=== PATIENT | male | born 1945 | race Caucasian/White ===

== ENCOUNTER → 2020-06-10 | Outpatient (CLI) | payer MEDICARE ==
[2020-06-10 10:25] LABS: Basophils % (A) 0 %; Eosinophils # (A) 0.1 k/uL (0-0.7); Eosinophils % (A) 1 %; HCT 45.2 % (39.0-53.0); HGB 14.6 gm/dL (13.0-17.5); Lymphocytes # (A) 1.5 k/uL (1.0-4.8); Lymphocytes % (A) 22 %; MCH 31.6 pg (25.0-35.0); MCHC 32.3 g/dL (31.0-37.0); MCV 97.9 fL (80.0-100.0); Mean Platelet Volume 6.9; Monocytes # (A) 0.7 k/uL (0-1.0); Monocytes % (A) 10 %; Neutrophils # (A) 4.6 k/uL (1.3-7.7); Neutrophils % (A) 64 %; Platelet Count 265 k/uL (150-450); RBC 4.62 m/uL (4.30-5.90); RDW 12.8 % (11.5-15.5); WBC 7.1 k/uL (3.8-10.6)
[2020-06-10 16:41] LABS: African American GFR (CKD) 69.1 (60.0-200.0); Albumin 4.4 g/dL (3.80-4.90); Albumin/Globulin Ratio 1.69 (1.60-3.17); Anion Gap 7.6 mmol/L (4.00-12.00); BUN/Creat Ratio 9.17 Ratio (12.00-20.00); Calcium 9.7 mg/dL (8.7-10.3); Carbon Dioxide 26.4 mmol/L (21.6-31.8); Chol/HDL Ratio 2.06; Globulin 2.6 g/dL (1.6-3.3); Non-African American GFR(CKD) 59.6 (60.0-200.0); Potassium 4.3 mmol/L (3.5-5.5); Total Bilirubin 0.7 mg/dL (0.3-1.2)
== END | disposition home or self-care (01) ==
LOC: LABWHC1 09:12
PROVIDERS: ATTEND Physician Assistant
DX: F41.9 Anxiety disorder, unspecified (principal); E78.2 Mixed hyperlipidemia; I10 Essential (primary) hypertension
CPT/HCPCS: 36415; 80053; 80061; 84439; 84443; 85025

== ENCOUNTER → 2020-06-17 | Outpatient (CLI) | payer MEDICARE ==
--- NOTE | 2020-06-17 12:00 | ECHOF ---
Referral Reason:R01.1 Heart Murmur MEASUREMENTS -------- HEIGHT: 180.3 cm WEIGHT: 88.5 kg BP: IVSd: 1.5 cm (0.6 - 1.1) LVIDd: 3.2 cm (3.9 - 5.3) LVPWd: 1.6 cm (0.6 - 1.1) IVSs: 2.0 cm LVIDs: 1.8 cm LVPWs: 1.7 cm LAESV Index (A-L): 29.59 ml/m Ao Diam: 2.2 cm (2.0 - 3.7) AV Cusp: 1.1 cm (1.5 - 2.6) LA Diam: 4.1 cm (2.7 - 3.8) MV EXCURSION: 12.148 mm (> 18.000) MV EF SLOPE: 48 mm/s (70 - 150) EPSS: 0.7 cm MV E Quentin: 1.25 m/s MV DecT: 150 ms MV A Quentin: 0.75 m/s MV E/A Ratio: 1.66 AV maxP.58 mmHg AV meanP.59 mmHg AR PHT: 215 ms RAP: 5.00 mmHg RVSP: 29.59 mmHg FINDINGS -------- Sinus rhythm. This was a technically good study. The left ventricular size is normal. There is moderate concentric left ventricular hypertrophy. O verall left ventricular systolic function is normal with, an EF between 55 - 60 %. Normal LAP. Grad e 1 Diastolic Dysfunction. The right ventricle is normal in size. LA is midly dilated 29-33ml/m2. The right atrial size is normal. Interatrial and interventricular septum intact. Aortic valve is trileaflet and is severely thickened. Trace amount of aortic regurgitation. Ther e is severe aortic stenosis present. Peak/mean gradient across the Aortic Valve is 72.58mmHg / 39.5 9mmHg. The mitral valve is normal. The mitral valve leaflets are mildly thickened. Mild mitral regurgita tion is present. Mild tricuspid regurgitation present. Right ventricular systolic pressure is normal at < 35 mmHg. There is no pulmonic regurgitation present. The aortic root size is normal. Normal inferior vena cava with normal inspiratory collapse consistent with estimated right atrial pre ssure of 5 mmHg. There is no pericardial effusion. CONCLUSIONS -------- 1. The left ventricular size is normal. 2. There is moderate concentric left ventricular hypertrophy. 3. Overall left ventricular systolic function is normal with, an EF between 55 - 60 %. 4. Normal LAP. Grade 1 Diastolic Dysfunction. 5. LA is midly dilated 29-33ml/m2. 6. Aortic valve is trileaflet and is severely thickened. 7. Trace amount of aortic regurgitation. 8. There is severe aortic stenosis present. 9. Peak/mean gradient across the Aortic Valve is 72.58mmHg / 39.59mmHg. 10. The mitral valve leaflets are mildly thickened. 11. Mild mitral regurgitation is present. 12. Mild tricuspid regurgitation present. RECLAIMER: Corrina Garcia RDCS
== END | disposition home or self-care (01) ==
LOC: RADECHMAIN 11:05
PROVIDERS: ATTEND Family Medicine
DX: I08.1 Rheumatic disorders of both mitral and tricuspid valves (principal)
CPT/HCPCS: 93306

== ENCOUNTER 2023-05-10 10:01 | Inpatient (IN) | payer MEDICARE ==
[2023-05-10] MEDS ORDERED: SODIUM CHLORIDE 0.9% 500 ML 500 ML IV STA (10:14)
--- NOTE | 2023-05-10 10:23 | ED ---
General Adult HPI - General Chief complaint: Weakness Stated complaint: Weakness Time Seen by Provider: 05/10/23 10:10 Source: patient, EMS, RN notes reviewed, old records reviewed Mode of arrival: EMS Limitations: altered mental status - History of Present Illness Initial comments: This is a 78-year-old male who presents emergency Department for generalized weakness. Patient states he continues to fall he states because he gets his feet caught on the sticky floor but according to EMS the wanted him evaluated for weakness and the fact that 4 days ago he had slurred speech and he hasn't had any since. According to EMS there was no concern for difficulty breathing or chest pain there's no complaints vomiting or diarrhea there's no complete abdominal pain patient himself has no complaints at all and he is indicated he only reason EMS was called us because he couldn't get up and he is not sure why he was brought to the hospital. is not yet here to give us her side of the story. Patient has a history of stroke who is not exhibiting any signs of stroke and he denies any weakness or numbness that is focal - Related Data Home Medications Medication Instructions Recorded Confirmed Aspirin EC [Ecotrin] 325 mg PO DAILY 05/10/23 05/10/23 Escitalopram [Lexapro] 20 mg PO HS 05/10/23 05/10/23 Meloxicam [Mobic] 15 mg PO DAILY 05/10/23 05/10/23 Metoprolol Succinate (ER) [Toprol 50 mg PO DAILY 05/10/23 05/10/23 Xl] Omeprazole [PriLOSEC] 40 mg PO DAILY PRN 05/10/23 05/10/23 Rosuvastatin Calcium 5 mg PO HS 05/10/23 05/10/23 Allergies Allergy/AdvReac Type Severity Reaction Status Date / Time Iodinated Contrast Media Allergy KIDNEY Verified 05/10/23 11:06 [Iodinated Contrast Media - FAILURE IV Dye] Review of Systems ROS Statement: Those systems with pertinent positive or pertinent negative responses have been documented in the HPI. ROS Other: All systems not noted in ROS Statement are negative. 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 Recently recovered from shingelles. CVA-2012-LT SIDED ARM WEAKNESS. POLYMYALGIA History of Any Multi-Drug Resistant Organisms: None Reported Past Surgical History: Bowel Resection, Heart Catheterization Additional Past Surgical History / Comment(s): 09/01/16 Robotic assisted laparoscopic lower anterior resection, bilateral ureteral stent placement. Other surgical procedures: EGD, COLONOSCOPY Past Anesthesia/Blood Transfusion Reactions: No Reported Reaction Additional Past Anesthesia/Blood Transfusion Reaction / Comment(s): HAS NEVER HAD GENERAL ANESTHESIA. Past Psychological History: No Psychological Hx Reported Smoking Status: Current every day smoker Past Alcohol Use History: Occasional Past Drug Use History: None Reported - Past Family History Father Family Medical History: Cancer Additional Family Medical History / Comment(s): MELANOMA. Father lived to be 92 yrs old. Mother Family Medical History: No Reported History Additional Family Medical History / Comment(s): Mother was healthy and lived to be 92 yrs.old. General Exam - General Exam Comments Initial Comments: GENERAL: Patient is well-developed and well-nourished. Patient is nontoxic and well- hydrated and is in no acute distress. ENT: Neck is soft and supple. No significant lymphadenopathy is noted. Oropharynx is clear. Moist mucous membranes. Neck has full range of motion without eliciting any pain. EYES: The sclera were anicteric and conjunctiva were pink and moist. Extraocular movements were intact and pupils were equal round and reactive to light. Eyelids were unremarkable. PULMONARY: Unlabored respirations. Good breath sounds bilaterally. No audible rales rhonchi or wheezing was noted. CARDIOVASCULAR: There is a regular rate and rhythm without any murmurs gallops or rubs. ABDOMEN: Soft and nontender with normal bowel sounds. SKIN: Skin is clear with no lesions or rashes and otherwise unremarkable. NEUROLOGIC: Patient is alert and oriented x3. Cranial nerves II through XII are grossly intact. Motor and sensory are also intact. Normal speech, volume and content. Symmetrical smile. NIH is 0 MUSCULOSKELETAL: Normal extremities with adequate strength and full range of motion. No lower extremity swelling or edema. No calf tenderness. LYMPHATICS: No significant lymphadenopathy is noted PSYCHIATRIC: Normal psychiatric evaluation. Limitations: altered mental status Course Vital Signs 05/10/23 10:06 Temperature 97.6 F Pulse Rate 100 Respiratory 18 Rate Blood Pressure 145/109 O2 Sat by Pulse 99 Oximetry Medical Decision Making - Medical Decision Making EKG is interpreted by myself which shows atrial fibrillation at 89 bpm QRS is 98 QT interval 379 QTC is 445. Patient's EKG shows no ST segment elevation or depression Was pt. sent in by a medical professional or institution (, PA, MACHINIST CLASS B, urgent care, hospital, or detention...) When possible be specific @ -No Did you speak to anyone other than the patient for history (EMS, parent, family, police, friend...)? What history was obtained from this source @ - gave quite a bit of a history. Patient himself was stating he was here because he's been tripping a lot lately according to the he is so weak he can barely stand days also been quite altered he often thinks it's the middle the day when it's in the middle the night and even since she's been in the emergency department he has been making comments about people singing outside and wonders why there is singing and she states she is definitely not at his baseline Did you review nursing and triage notes (agree or disagree)? Why? @ -I reviewed and agree with nursing and triage notes Were old charts reviewed (outside hosp., previous admission, EMS record, old EKG, old radiological studies, urgent care reports/EKG's, detention records)? Report findings @ -I reviewed prior charts prior lab work Differential Diagnosis (chest pain, altered mental status, abdominal pain women, abdominal pain men, vaginal bleeding, weakness, fever, dyspnea, syncope, headache, dizziness, GI bleed, back pain, seizure, CVA, palpatations, mental health, musculoskeletal)? @ -Differential Altered Mental Status: Hypoglycemia, DKA, hypercapnia, ETOH, overdose, CO poisoning, trauma, myxedema coma, HTN encephalopathy, infection, encephalitis, psychosis, intercranial hemorrhage, hepatic encephalopathy, meningitis, CVA, this is not meant to be an all-inclusive list EKG interpreted by me (3pts min.). @ -As above X-rays interpreted by me (1pt min.). @ -Chest x-ray shows no acute abnormality CT interpreted by me (1pt min.). @ -CT of the brain shows no acute abnormality U/S interpreted by me (1pt. min.). @ -None done What testing was considered but not performed or refused? (CT, X-rays, U/S, labs)? Why? @ -None What meds were considered but not given or refused? Why? @ -None Did you discuss the management of the patient with other professionals (professionals i.e. , PA, MACHINIST CLASS B, lab, RT, psych nurse, socially responsible investment adviser, exercise science internship, teacher, tax compliance officer, trimming caser)? Give summary @ -I spoke with Dr. Gee agreed that the patient admitted the patient wrote admitting orders Was smoking cessation discussed for >3mins.? @ -No Was critical care preformed (if so, how long)? @ -No Were there social determinants of health that impacted care today? How? (Homelessness, low income, unemployed, alcoholism, drug addiction, transportation, low edu. Level, literacy, decrease access to med. care, halfway, rehab)? @ -No Was there de-escalation of care discussed even if they declined (Discuss DNR or withdrawal of care, Hospice)? DNR status @ -No What co-morbidities impacted this encounter? (DM, HTN, Smoking, COPD, CAD, Cancer, CVA, ARF, Chemo, Hep., AIDS, mental health diagnosis, sleep apnea, morbid obesity)? @ -None Was patient admitted / discharged? Hospital course, mention meds given and route, prescriptions, significant lab abnormalities, going to OR and other pertinent info. @ -Patient continued to be altered in the emergency department and though he had no focal weakness patient was unable to stand and be studied by the bedside. I spoke with [facility] and agreed to admit the patient admitted the p atient wrote admitting orders. Patient was a little low on magnesium psychiatric the patient 2 g of magnesium sulfate. Undiagnosed new problem with uncertain prognosis? @ -No Drug Therapy requiring intensive monitoring for toxicity (Heparin, Nitro, Insulin, Cardizem)? @ -No Were any procedures done? @ -No Diagnosis/symptom? @ -Altered mental status Acute, or Chronic, or Acute on Chronic? @ -Acute Uncomplicated (without systemic symptoms) or Complicated (systemic symptoms)? @ -Complicated Side effects of treatment? @ -No Exacerbation, Progression, or Severe Exacerbation? @ -No Poses a threat to life or bodily function? How? (Chest pain, USA, NM, pneumonia, PE, COPD, DKA, ARF, appy, cholecystitis, CVA, Diverticulitis, Homicidal, Suicidal, threat to staff... and all critical care pts) @ -No Diagnosis/symptom? @ -Hypomagnesemia Acute, or Chronic, or Acute on Chronic? @ -Acute Uncomplicated (without systemic symptoms) or Complicated (systemic symptoms)? @ -Uncomplicated Side effects of treatment? @ -none Exacerbation, Progression, or Severe Exacerbation] @ -no Poses a threat to life or bodily function? @ -no - Lab Data Result diagrams: 05/10/23 10:23 05/10/23 11:00 Lab Results 05/10/23 05/10/23 05/10/23 Range/Units 10:23 10: 10:23 WBC 5.7 (3.8-10.6) k/uL RBC 4.53 (4.30-5.90) m/uL Hgb 15.2 (13.0-17.5) gm/dL Hct 44.0 (39.0-53.0) % MCV 97.0 (80.0-100.0) fL MCH 33.4 (25.0-35.0) pg MCHC 34.5 (31.0-37.0) g/dL RDW 13.6 (11.5-15.5) % Plt Count 203 (150-450) k/uL MPV 8.0 Neutrophils % (Manual) 54 % Band Neuts % (Manual) 1 % Lymphocytes % (Manual) 20 % Monocytes % (Manual) 21 % Eosinophils % (Manual) 3 % Basophils % (Manual) 1 % Metamyelocytes % 1 % Myelocytes % 1 % Neutrophils # (Manual) 3.10 (1.3-7.7) k/uL Lymphocytes # (Manual) 1.14 (1.0-4.8) k/uL Monocytes # (Manual) 1.20 H (0-1.0) k/uL Eosinophils # (Manual) 0.17 (0-0.7) k/uL Basophils # (Manual) 0.06 (0-0.2) k/uL Metamyelocytes # (Man) 0.06 H (0) k/uL Myelocytes # (Manual) 0.06 H (0) k/uL Nucleated RBCs 0 (0-0) /100 WBC Manual Slide Review Performed RBC Morphology Normal PT 12.2 H (9.0-12.0) sec INR 1.2 H (<1.2) APTT 26.5 (22.0-30.0) sec Sodium (137-145) mmol/L Potassium (3.5-5.1) mmol/L Chloride (98-107) mmol/L Carbon Dioxide (22-30) mmol/L Anion Gap mmol/L BUN (9-20) mg/dL Creatinine (0.66-1.25) mg/dL Est GFR (CKD-EPI)AfAm (>60 ml/min/1.73 sqM) Est GFR (CKD-EPI)NonAf (>60 ml/min/1.73 sqM) Glucose (74-99) mg/dL Plasma Lactic Acid Bucky (0.7-2.0) mmol/L Calcium (8.4-10.2) mg/dL Magnesium (1.6-2.3) mg/dL Total Bilirubin (0.2-1.3) mg/dL AST (17-59) U/L ALT (4-49) U/L Alkaline Phosphatase (38-126) U/L Troponin I (0.000-0.034) ng/mL Total Protein (6.3-8.2) g/dL Albumin (3.5-5.0) g/dL Urine Color Yellow Urine Appearance Clear (Clear) Urine pH 6.5 (5.0-8.0) Ur Specific [place] 1.006 (1.001-1.035) Urine Protein Trace H (Negative) Urine Glucose (UA) Negative (Negative) Urine Ketones Negative (Negative) Urine Blood Negative (Negative) Urine Nitrite Negative (Negative) Urine Bilirubin Negative (Negative) Urine Urobilinogen 2.0 (<2.0) mg/dL Ur Leukocyte Esterase Negative (Negative) 05/10/23 05/10/23 05/10/23 Range/Units 11:00 11:00 11:00 WBC (3.8-10.6) k/uL RBC (4.30-5.90) m/uL Hgb (13.0-17.5) gm/dL Hct (39.0-53.0) % MCV (80.0-100.0) fL MCH (25.0-35.0) pg MCHC (31.0-37.0) g/dL RDW (11.5-15.5) % Plt Count (150-450) k/uL MPV Neutrophils % (Manual) % Band Neuts % (Manual) % Lymphocytes % (Manual) % Monocytes % (Manual) % Eosinophils % (Manual) % Basophils % (Manual) % Metamyelocytes % % Myelocytes % % Neutrophils # (Manual) (1.3-7.7) k/uL Lymphocytes # (Manual) (1.0-4.8) k/uL Monocytes # (Manual) (0-1.0) k/uL Eosinophils # (Manual) (0-0.7) k/uL Basophils # (Manual) (0-0.2) k/uL Metamyelocytes # (Man) (0) k/uL Myelocytes # (Manual) (0) k/uL Nucleated RBCs (0-0) /100 WBC Manual Slide Review RBC Morphology PT (9.0-12.0) sec INR (<1.2) APTT (22.0-30.0) sec Sodium 131 L (137-145) mmol/L Potassium 4.0 (3.5-5.1) mmol/L Chloride 99 (98-107) mmol/L Carbon Dioxide 22 (22-30) mmol/L Anion Gap 10 mmol/L BUN 11 (9-20) mg/dL Creatinine 1.02 (0.66-1.25) mg/dL Est GFR (CKD-EPI)AfAm 82 (>60 ml/min/1.73 sqM) Est GFR (CKD-EPI)NonAf 71 (>60 ml/min/1.73 sqM) Glucose 104 H (74-99) mg/dL Plasma Lactic Acid Bucky 1.5 (0.7-2.0) mmol/L Calcium 8.9 (8.4-10.2) mg/dL Magnesium 1.3 L (1.6-2.3) mg/dL Total Bilirubin 1.3 (0.2-1.3) mg/dL AST 31 (17-59) U/L ALT 23 (4-49) U/L Alkaline Phosphatase 169 H (38-126) U/L Troponin I <0.012 (0.000-0.034) ng/mL Total Protein 6.9 (6.3-8.2) g/dL Albumin 3.6 (3.5-5.0) g/dL Urine Color Urine Appearance (Clear) Urine pH (5.0-8.0) Ur Specific [place] (1.001-1.035) Urine Protein (Negative) Urine Glucose (UA) (Negative) Urine Ketones (Negative) Urine Blood (Negative) Urine Nitrite (Negative) Urine Bilirubin (Negative) Urine Urobilinogen (<2.0) mg/dL Ur Leukocyte Esterase (Negative) Disposition Clinical Impression: Hypomagnesemia, Altered mental status Disposition: ADMITTED IP TO THIS HOSP Referrals: Fernie Currie MD [Primary Care Provider] - 1-2 days Time of Disposition: 14:15
[2023-05-10 10:51] LABS: HGB 15.2 gm/dL (13.0-17.5); MCH 33.4 pg (25.0-35.0); MCHC 34.5 g/dL (31.0-37.0); Platelet Count 203 k/uL (150-450); RBC 4.53 m/uL (4.30-5.90); RDW 13.6 % (11.5-15.5); WBC 5.7 k/uL (3.8-10.6)
--- NOTE | 2023-05-10 10:53 | XR ---
EXAMINATION TYPE: XR chest 2V DATE OF EXAM: 05/10/2023 10:47 AM COMPARISON: Chest radiographs from 08/02/2016 TECHNIQUE: XR chest 2V Frontal and lateral views of the chest. CLINICAL INDICATION:Male, 78 years old with history of Weakness; FINDINGS: Lungs/Pleura: Blunting of both costophrenic angles. Elevation the right hemidiaphragm. No focal conso lidation or pneumothorax. Pulmonary vascularity: Unremarkable. Heart/mediastinum: Cardiomediastinal silhouette is unremarkable. Musculoskeletal: Multiple level degenerative disc disease changes seen throughout the spine. No acute osseous abnormality. IMPRESSION: Small bilateral pleural effusions.
--- NOTE | 2023-05-10 10:58 | CT ---
EXAMINATION TYPE: CT brain wo con DATE OF EXAM: 05/10/2023 COMPARISON: 09/23/2012 HISTORY: weakness, frequent falls CT DLP: 1129.4 mGycm Automated exposure control for dose reduction was used. FINDINGS: On changes of chronic sinusitis. Nasal septal deviation noted. Calvarium intact. Orbits are symmetric . Craniocervical junction maintained. Sella turcica is normal. There is moderate generalized degenerative change with subtle low attenuation in the white matter whi ch is nonspecific but most typical remote white matter ischemia. IMPRESSION: 1. NO ACUTE HEMORRHAGE OR MASS EFFECT. MODERATE GENERALIZED DEGENERATIVE AND NONSPECIFIC WHITE MATTER CHANGES MOST TYPICAL OF REMOTE WHITE MATTER MICROVASCULAR ISCHEMIA.
[2023-05-10 11:09] LABS: INR 1.2 (<1.2); Partial Thromboplastin Time 26.5 sec (22.0-30.0); Prothrombin Time 12.2 sec (9.0-12.0)
[2023-05-10 11:36] LABS: ALT 23 U/L (4-49); AST 31 U/L (17-59); African American GFR (CKD) 82 (>60 ml/min/1.73 sqM); Albumin 3.6 g/dL (3.5-5.0); Alkaline Phosphatase 169 U/L (38-126); Anion Gap 10 mmol/L; Blood Urea Nitrogen 11 mg/dL (9-20); Calcium 8.9 mg/dL (8.4-10.2); Carbon Dioxide 22 mmol/L (22-30); Chloride 99 mmol/L (98-107); Glucose 104 mg/dL (74-99); Magnesium 1.3 mg/dL (1.6-2.3); Non-African American GFR(CKD) 71 (>60 ml/min/1.73 sqM); Sodium 131 mmol/L (137-145); Total Bilirubin 1.3 mg/dL (0.2-1.3); Total Protein 6.9 g/dL (6.3-8.2)
[2023-05-10 11:44] LABS: Band Neutrophils % 1 %; Basophils # (M) 0.06 k/uL (0-0.2); Eosinophils # (M) 0.17 k/uL (0-0.7); Lymphocytes # (M) 1.14 k/uL (1.0-4.8); Metamyelocytes # (M) 0.06 k/uL (0); Metamyelocytes % 1 %; Myelocytes # (M) 0.06 k/uL (0); Myelocytes % 1 %; Neutrophils % (M) 54 %; Nucleated Red Blood Cells 0 /100 WBC (0-0); Total Cells Counted 200
[2023-05-10 11:46] LABS: RBC Morphology Normal
[2023-05-10 13:09] LABS: Appearance,Urine Clear (Clear); Bilirubin,Urine Negative (Negative); Blood,Urine Negative (Negative); Color,Urine Yellow; Glucose,Urine (UA) Negative (Negative); Ketones,Urine Negative (Negative); Leukocyte Esterase,Urine Negative (Negative); Nitrite,Urine Negative (Negative); PH, Urine 6.5 (5.0-8.0); Protein,Urine Trace (Negative); Specific Gravity,Urine 1.006 (1.001-1.035)
[2023-05-10] MEDS: MAGNESIUM SULFATE-D5W PMX 1 GM in DEXTROSE/WATER 1 100ML.BAG IVPB SCH ×2 (13:49→14:52)
[2023-05-10] MEDS ORDERED: SODIUM CHLORIDE 0.9% 1,000 ML IV ONE (14:16)
[2023-05-10] MEDS ORDERED: PANTOPRAZOLE 40 MG TABLET PO PRN (16:47)
--- NOTE | 2023-05-10 17:25 | P.HPIM ---
History of Present Illness H&P Date: 05/10/23 Patient is a 78-year-old male with PMH of CVA and 2013, atrial fibrillation not on anticoagulation, GERD, hypertension, severe aortic stenosis presents to the ED for generalized weakness. Patient is pleasantly confused majority of the history is obtained from his . His reports that the patient has been more forgetful, repeating himself, disorientation and losing his balance frequently which is progressively been getting worse over the past 2 weeks. Over the past 3 days, he has been in bed and unable to stand up. He is also sleeping more. reports taking him off Eliquis recently for the fear of falling. She denies any slurred speech, difficulty swallowing, unilateral weakness. These constellation of symptoms prompted her to call EMS. In the ED, BP was 145/109 with heart rate of 100. CBC was benign. Coagulation panel showed INR 1.2. CMP showed sodium of 131, glucose 104, magnesium of 1.3 and alkaline phosphatase 169. Troponins less than 0.012. Urinalysis showed trace protein. CT head showed small vessel ischemic changes. EKG showed atrial fibrillation. Chest x-ray showed small bilateral pleural effusions. Pertinent positives and negatives as discussed in HPI, a complete review of systems was performed and all other systems are negative. General: non toxic, no distress, appears at stated age Derm: warm, dry Head: atraumatic, normocephalic, symmetric Eyes: EOMI, no lid lag, anicteric sclera Cardiovascular: Irregularly regular, no murmur Lungs: CTA bilateral, no rhonchi, no rales , no accessory muscle use Abdominal: soft, nontender to palpation, no guarding, no appreciable organomegaly Ext: no gross muscle atrophy, no edema, no contractures, LLE bruising Neuro: CN II-XI grossly intact, no focal neuro deficits Psych: Alert and oriented x 1 Altered mental status Generalized weakness Hypomagnesemia Hyponatremia Chronic conditions: CVA and 2013, atrial fibrillation not on anticoagulation, GERD, hypertension, severe aortic stenosis Based on my assessment of this patient, this patient meets a high complexity level of care. Patient has an acute diagnosis of altered mental status that poses a threat to life or bodily function. 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 He is unable to do his ADLs and IADLs. He is AO x 1. Unable to tell me who the president is or what year it is. Prior to this, he was fully functioning. Given that he is off anticoagulation, concern is for CVA. Stroke workup will be pursued. Obtain CT head and neck. Obtain MRI brain. Obtain echocardiogram. Telemetry monitoring and advanced neurochecks. PT, OT and ST consulted. Hemoglobin A1c and lipid panel ordered. Reversible labs including TSH, folate acid, vitamin B12 and ammonia ordered. I have reviewed the following strategy planning consultant notes: I have reviewed the results of the following tests: CBC, CMP, coagulation panel, troponin, urinalysis, CT head, chest x-ray. I have ordered the following tests: CTA head and neck, echocardiogram, MRI brain, hemoglobin A1c, lipid panel, TSH, ammonia, fully casted, vitamin B12. I have discussed the care of this patient with the following independent historian: Case was discussed extensively with the over the phone. I have independently interpreted the following test below: EKG is interpreted as above. I have discussed the management of this patient with the following physician: Case was discussed extensively with the ED physician. 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 Recently recovered from shingelles. 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 POLYMYALGIA History of Any Multi-Drug Resistant Organisms: None Reported Past Surgical History: Bowel Resection, Heart Catheterization Additional Past Surgical History / Comment(s): 09/01/16 Robotic assisted laparoscopic lower anterior resection, bilateral ureteral stent placement. Other surgical procedures: EGD, COLONOSCOPY Past Anesthesia/Blood Transfusion Reactions: No Reported Reaction Additional Past Anesthesia/Blood Transfusion Reaction / Comment(s): HAS NEVER HAD GENERAL ANESTHESIA. Past Psychological History: No Psychological Hx Reported Smoking Status: Current every day smoker Past Alcohol Use History: Occasional Past Drug Use History: None Reported - Past Family History Father Family Medical History: Cancer Additional Family Medical History / Comment(s): MELANOMA. Father lived to be 92 yrs old. Mother Family Medical History: No Reported History Additional Family Medical History / Comment(s): Mother was healthy and lived to be 92 yrs.old. Medications and Allergies Home Medications Medication Instructions Recorded Confirmed Type Aspirin EC [Ecotrin] 325 mg PO DAILY 05/10/23 05/10/23 History Escitalopram [Lexapro] 20 mg PO HS 05/10/23 05/10/23 History Meloxicam [Mobic] 15 mg PO DAILY 05/10/23 05/10/23 History Metoprolol Succinate (ER) [Toprol 50 mg PO DAILY 05/10/23 05/10/23 History Xl] Omeprazole [PriLOSEC] 40 mg PO DAILY PRN 05/10/23 05/10/23 History Rosuvastatin Calcium 5 mg PO HS 05/10/23 05/10/23 History Allergies Allergy/AdvReac Type Severity Reaction Status Date / Time Iodinated Contrast Media Allergy KIDNEY Verified 05/10/23 11:06 [Iodinated Contrast Media - FAILURE IV Dye] Physical Exam Vitals: Vital Signs Temp Pulse Resp BP Pulse Ox 05/10/23 10:06 97.6 F 100 18 145/109 99 Intake and Output 05/10/23 05/10/23 05/10/23 06:59 14:59 22:59 Other: Weight 86.183 kg Results CBC & Chem 7: 05/10/23 10:23 05/10/23 11:00 Labs: Abnormal Lab Results - Last 24 Hours (Table) 05/10/23 05/10/23 05/10/23 Range/Units 10:23 10:23 10:23 Monocytes # (Manual) 1.20 H (0-1.0) k/uL Metamyelocytes # (Man) 0.06 H (0) k/uL Myelocytes # (Manual) 0.06 H (0) k/uL PT 12.2 H (9.0-12.0) sec INR 1.2 H (<1.2) Sodium (137-145) mmol/L Glucose (74-99) mg/dL Magnesium (1.6-2.3) mg/dL Alkaline Phosphatase (38-126) U/L Urine Protein Trace H (Negative) 05/10/23 Range/Units 11:00 Monocytes # (Manual) (0-1.0) k/uL Metamyelocytes # (Man) (0) k/uL Myelocytes # (Manual) (0) k/uL PT (9.0-12.0) sec INR (<1.2) Sodium 131 L (137-145) mmol/L Glucose 104 H (74-99) mg/dL Magnesium 1.3 L (1.6-2.3) mg/dL Alkaline Phosphatase 169 H (38-126) U/L Urine Protein (Negative)
--- NOTE | 2023-05-10 19:13 | US ---
EXAMINATION TYPE: US carotid duplex BILAT DATE OF EXAM: 05/10/2023 COMPARISON: NONE CLINICAL INDICATION: Male, 78 years old with history of CVA; CVA. Altered mental status TECHNIQUE: Carotid duplex ultrasound examination. Indirect Doppler criteria was utilized. FINDINGS: EXAM MEASUREMENTS: RIGHT: Peak Systolic Velocity (PSV) cm/sec ----- Right CCA: 21.7 ----- Right ICA: 73.6 ----- Right ECA: 46.5 ICA/CCA ratio: 3.4 RIGHT: End Diastole cm/sec ----- Right CCA: 5.1 ----- Right ICA: 21.9 ----- Right ECA: 0.0 LEFT: Peak Systolic Velocity (PSV) cm/sec ----- Left CCA: 41.2 ----- Left ICA: 44.3 ----- Left ECA: 50.8 ICA/CCA ratio: 1.1 LEFT: End Diastole cm/sec ----- Left CCA: 24.8 ----- Left ICA: 17.5 ----- Left ECA: 8.5 VERTEBRALS (direction of flow): Right Vertebral: Antegrade Left Vertebral: Not seen Rhythm: Arrhythmia ASSEMBLER TRIM NOTES: Moderate amount of plaque seen in right bulb and right ICA. There appears to be st enosis in the right ICA IMPRESSION: 1. Approximately 50-69% stenosis involving the right internal carotid artery secondary to hard and so ft atherosclerotic plaquing. 2. Non-visualization of the left vertebral artery. 3. No hemodynamically significant stenosis in the left carotid arterial system. Criteria for Assigning % of Stenosis / Diameter reduction (Estimation based on the indirect measurements of the internal carotid artery velocities (ICA PSV). 1. Normal (no stenosis)=ICA PSV < 125 cm/s: ratio < 2.0: ICA EDV<40 cm/s. 2. Less than 50% stenosis=ICA PSV < 125 cm/s: ratio < 2.0: ICA EDV<40 cm/s. 3. 50 to 69% stenosis=ICA PSV of 125 to 230 cm/s: ration 2.0 ? 4.0: ICA EDV 40-100 cm/s. 4. Greater than 70% stenosis to near occlusion= ICA PSV > 230 cm/s: ratio > 4.0: ICA EDV > 100 cm/s. 5. Near occlusion= ICA PSV velocities may be low or undetectable: variable ratio and ICA EDV. 6. Total occlusion=unable to detect flow.
[2023-05-10 19:18] LABS: Glucose,Whole Blood 128 mg/dL (70-110)
[2023-05-10] MEDS ORDERED: ATORVASTATIN 10 MG TAB PO SCH (21:00)
[2023-05-10] MEDS: ESCITALOPRAM 20 MG TAB PO SCH (22:13)
[2023-05-11] MEDS ORDERED: LORazepam 2 MG/ML INJ IV STA (00:22)
[2023-05-11] MEDS ORDERED: LORazepam 2 MG/ML INJ IV PRN ×3 (00:24)
[2023-05-11] MEDS ORDERED: THIAMINE 100 MG/ML 2 ML VIAL IM STA (00:24)
[2023-05-11 06:12] LABS: Glucose,Whole Blood 99 mg/dL (70-110)
[2023-05-11] MEDS ORDERED: ENOXAPARIN 40 MG/0.4 ML SYRINGE SQ SCH (09:00)
[2023-05-11] MEDS: FOLIC ACID 1 MG TAB PO SCH (09:11)
[2023-05-11] MEDS: ASPIRIN 325 MG TAB PO SCH (09:11)
[2023-05-11] MEDS: METOPROLOL SUCCINATE (ER) 50 MG TAB.ER.24H PO SCH (09:11)
[2023-05-11] MEDS: MULTIVITAMINS, THERA 1 EACH TAB PO SCH (09:11)
--- NOTE | 2023-05-11 11:04 | CA ---
Transthoracic Echo Report Name: Juvenal Harmon Age: 78 Gender: M : 1945 Exam Date: 05/11/2023 08:16 Exam Location: [facility] Ht (in): 72 Wt (lb): 190 Ordering Physician: Carloz Gee MD Attending/Referring Phys: Nursing Program Coordinator Judd Toscano Procedure CPT: Indications: Thrombus Cardiac Hx: Technical Quality: Technically difficult study Contrast 1: Total Dose (mL): Contrast 2: Total Dose (mL): MEASUREMENTS (Male / Female) Normal Values 2D ECHO LV Diastolic Diameter PLAX 4.1 cm 4.2 - 5.9 / 3.9 - 5.3 cm LV Systolic Diameter PLAX 2.9 cm IVS Diastolic Thickness 1.4 cm 0.6 - 1.0 / 0.6 - 0.9 cm LVPW Diastolic Thickness 1.2 cm 0.6 - 1.0 / 0.6 - 0.9 cm LV Relative Wall Thickness 0.6 RV Internal Dim ED PLAX 2.8 cm LVOT Diameter 2.0 cm Aortic Root Diameter 2.5 cm LA Systolic Diameter LX 4.1 cm 3.0 - 4.0 / 2.7 - 3.8 cm LV Diastolic Volume MOD BP 33.2 cm??? 67 - 155 / 56 - 104 cm??? LV Systolic Volume MOD BP 16.1 cm??? 22 - 58 / 19 - 49 cm??? LV Ejection Fraction MOD BP 51.6 % >= 55 % LV Diastolic Volume MOD 4C 36.3 cm??? LV Systolic Volume MOD 4C 17.3 cm??? LV Ejection Fraction MOD 4C 52.4 % LV Diastolic Length 4C 6.3 cm LV Systolic Length 4C 6.2 cm LV Diastolic Volume MOD 2C 30.4 cm??? LV Systolic Volume MOD 2C 14.5 cm??? LV Ejection Fraction MOD 2C 52.2 % LV Diastolic Length 2C 6.3 cm LV Systolic Length 2C 6.0 cm LA Volume 85.9 cm??? 18 - 58 / 22 - 52 cm??? DOPPLER AV Peak Velocity 419.6 cm/s AV Peak Gradient 70.4 mmHg AV Mean Velocity 316.0 cm/s AV Mean Gradient 45.0 mmHg AV Velocity Time Integral 94.6 cm LVOT Peak Velocity 68.0 cm/s LVOT Peak Gradient 1.8 mmHg LVOT Velocity Time Integral 14.6 cm LVOT Stroke Volume 47.8 cm??? LVOT Stroke Volume Index 23.0 ml/m??? AV Area Cont Eq vti 0.5 cm??? AV Area Cont Eq pk 0.5 cm??? MV Peak Velocity 104.7 cm/s MV Peak Gradient 4.4 mmHg MV Mean Velocity 48.6 cm/s MV Mean Gradient 1.2 mmHg MV Velocity Time Integral 26.0 cm MR Peak Velocity 426.7 cm/s MR Peak Gradient 72.8 mmHg Mitral E Point Velocity 99.4 cm/s Mitral A Point Velocity 30.0 cm/s Mitral E to A Ratio 3.3 MV Deceleration Time 179.4 ms MV E' Velocity 4.4 cm/s Mitral E to MV E' Ratio 22.4 TR Peak Velocity 323.3 cm/s TR Peak Gradient 41.8 mmHg Right Ventricular Systolic Press 52.0 mmHg PV Peak Velocity 82.1 cm/s PV Peak Gradient 2.7 mmHg FINDINGS Left Ventricle Moderately increased septal wall thickness. Mildly decreased left ventricular ejection fraction. Concentric LVH. Left ventricular ejection fraction is estimated at 30-35 %. Right Ventricle Normal right ventricular size. RVSP= 60mmhg Right Atrium Mild right atrial dilatation. Left Atrium Mildly increased left atrial diameter. Severely increased left atrial volume. Mildly increased left atrial area. Mitral Valve Moderate posterior MAC. Mild MR. Aortic Valve Aortic valve not well visualized. Severe aortic stenosis with a peak velocity of m/s, peak gradient 71mmhg, mean gradient 47mmHg, and estimated aortic valve area of 0.6cm???. Tricuspid Valve Structurally normal tricuspid valve. Moderate TR. Pulmonic Valve Pulmonic valve not well visualized. Trace PI. Pericardium Normal pericardium. Aorta Normal size aortic root and proximal ascending aorta. CONCLUSIONS Difficult patient management. LVH with reduced LV systolic function Severe aortic stenosis, calcific Dilated left atrium Previewed by: Dr. Robin Quiroga MD (Electronically Signed) Final Date: 11 May 2023 11:03
--- NOTE | 2023-05-11 11:28 | P.GSCN ---
History of Present Illness Consult date: 05/11/23 Reason for Consult: Right-sided carotid stenosis per carotid duplex Requesting physician: Fabiano Zhu History of present illness: This is a 78-year-old male who was brought in by EMS yesterday with concerns of altered mental status changes, confusion, and generalized weakness. Patient is currently sleeping, and does not provide any history however patient's is at the bedside to provide most of the history. States that he has a past medical history of coronary artery disease, atrial fibrillation and currently on anticoagulation, cardiac valve disease, CVA with residual left-sided weakness in 2012,, GERD, colon cancer, and hypertension. She states he was diagnosed with atrial fibrillation about one year ago and was placed on anticoagulation not that long ago but stopped it after being on it for a couple weeks due to multiple falls and bruising. She also states that he has a bad heart valve that was recommended first surgical intervention by his ocean export coordinator Dr. Guzman. She states that he has been hallucinating and stating that he is seeing things and hearing voices and people singing that are not there. Also has become just generally weak of bilateral upper and lower extremities, having some difficulty with walking, decreased appetite along with some weight loss. She states the only new medications for for his heart she believes his anticoagulation and metoprolol. Again she had stopped the anticoagulation about 2 weeks ago. Neurology was consulted for altered mental status changes, and generalized weakness. He had a CT of the brain reporting no acute hemorrhage or mass effect. Moderate generalized degenerative and nonspecific white matter changes most typical of remote white matter microvascular ischemia. He also underwent a carotid duplex reporting 50-69% stenosis involving the right internal carotid artery secondary to hard and soft arthrosclerotic plaquing. Nonvisualization the left vertebral artery and no hemodynamically significant stenosis of the left carotid artery system. Vascular surgery was consulted for right ICA stenosis. Review of Systems ROS unobtainable: due to mental status Past Medical History Past Medical History: CVA/TIA, GERD/Reflux, Hypertension Additional Past Medical History / Comment(s): 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 shingles. CVA-2012-LT SIDED ARM WEAKNESS. POLYMYALGIA History of Any Multi-Drug Resistant Organisms: None Reported Past Surgical History: Bowel Resection, Heart Catheterization Additional Past Surgical History / Comment(s): 09/01/16 Robotic assisted laparoscopic lower anterior resection, bilateral ureteral stent placement. Other surgical procedures: EGD, COLONOSCOPY Past Anesthesia/Blood Transfusion Reactions: No Reported Reaction Additional Past Anesthesia/Blood Transfusion Reaction / Comm: HAS NEVER HAD GENERAL ANESTHESIA. Past Psychological History: No Psychological Hx Reported Additional Psychological History / Comment(s): Pt resides with his spouse. He is independent. He drives. Smoking Status: Never smoker Past Alcohol Use History: Occasional Past Drug Use History: None Reported - Past Family History Father Family Medical History: Cancer Additional Family Medical History / Comment(s): MELANOMA. Father lived to be 92 yrs old. Mother Family Medical History: No Reported History Additional Family Medical History / Comment(s): Mother was healthy and lived to be 92 yrs.old. Medications and Allergies Home Medications Medication Instructions Recorded Confirmed Type Aspirin EC [Ecotrin] 325 mg PO DAILY 05/10/23 05/10/23 History Escitalopram [Lexapro] 20 mg PO HS 05/10/23 05/10/23 History Meloxicam [Mobic] 15 mg PO DAILY 05/10/23 05/10/23 History Metoprolol Succinate (ER) [Toprol 50 mg PO DAILY 05/10/23 05/10/23 History Xl] Omeprazole [PriLOSEC] 40 mg PO DAILY PRN 05/10/23 05/10/23 History Rosuvastatin Calcium 5 mg PO HS 05/10/23 05/10/23 History Allergies Allergy/AdvReac Type Severity Reaction Status Date / Time Iodinated Contrast Media Allergy KIDNEY Verified 05/10/23 11:06 [Iodinated Contrast Media - FAILURE IV Dye] Surgical - Exam Vital Signs Temp Pulse Resp BP Pulse Ox 97.6 F 100 18 145/109 99 05/10/23 10:06 05/10/23 10:06 05/10/23 10:06 05/10/23 10:05/10/23 10:06 General appearance: The patient is alert, oriented to self, appears in no acute distress. HET: Head is normocephalic and atraumatic. Pupils are equal and reactive. Neck: Supple. No audible carotid bruit. Heart: Irregular with murmur. Lungs: Equal expansion, normal respiratory effort. Abdomen: Soft, nontender, nondistended. Extremities: Normal skin color and turgor. Neurological: Patient alert, sleeping but easily arousable, alert to self. He is able to follow commands. Speech fluent, has facial symmetry and tongue protrudes midline. Good tone bilateral upper and lower extremities, with some generalized weakness bilateral upper and lower extremities. Results - Labs 05/10/23 10:23 05/10/23 11:00 Abnormal Lab Results - Last 24 Hours (Table) 05/10/23 05/10/23 05/10/23 Range/Units 10:23 10:23 10:23 Monocytes # (Manual) 1.20 H (0-1.0) k/uL Metamyelocytes # (Man) 0.06 H (0) k/uL Myelocytes # (Manual) 0.06 H (0) k/uL PT 12.2 H (9.0-12.0) sec INR 1.2 H (<1.2) Sodium (137-145) mmol/L Glucose (74-99) mg/dL POC Glucose (mg/dL) (70-110) mg/dL Magnesium (1.6-2.3) mg/dL Alkaline Phosphatase (38-126) U/L Urine Protein Trace H (Negative) 05/10/23 05/10/23 Range/Units 11:00 19:17 Monocytes # (Manual) (0-1.0) k/uL Metamyelocytes # (Man) (0) k/uL Myelocytes # (Manual) (0) k/uL PT (9.0-12.0) sec INR (<1.2) Sodium 131 L (137-145) mmol/L Glucose 104 H (74-99) mg/dL POC Glucose (mg/dL) 128 H (70-110) mg/dL Magnesium 1.3 L (1.6-2.3) mg/dL Alkaline Phosphatase 169 H (38-126) U/L Urine Protein (Negative) Diabetes panel 05/10/23 05/11/23 Range/Units 11:00 06:32 Sodium 131 L (137-145) mmol/L Potassium 4.0 (3.5-5.1) mmol/L Chloride 99 (98-107) mmol/L Carbon Dioxide 22 (22-30) mmol/L BUN 11 (9-20) mg/dL Creatinine 1.02 (0.66-1.25) mg/dL Glucose 104 H (74-99) mg/dL Hemoglobin A1c 5.8 (<=6.0) % Calcium 8.9 (8.4-10.2) mg/dL AST 31 (17-59) U/L ALT 23 (4-49) U/L Alkaline Phosphatase 169 H (38-126) U/L Total Protein 6.9 (6.3-8.2) g/dL Albumin 3.6 (3.5-5.0) g/dL Thyroid panel 05/11/23 Range/Units 06:32 TSH 1.310 (0.465-4.680) mIU/L Calcium panel 05/10/23 Range/Units 11:00 Calcium 8.9 (8.4-10.2) mg/dL Albumin 3.6 (3.5-5.0) g/dL Pituitary panel 05/10/23 05/11/23 Range/Units 11:00 06:32 Sodium 131 L (137-145) mmol/L Potassium 4.0 (3.5-5.1) mmol/L Chloride 99 (98-107) mmol/L Carbon Dioxide 22 (22-30) mmol/L BUN 11 (9-20) mg/dL Creatinine 1.02 (0.66-1.25) mg/dL Glucose 104 H (74-99) mg/dL Calcium 8.9 (8.4-10.2) mg/dL TSH 1.310 (0.465-4.680) mIU/L Adrenal panel 05/10/23 Range/Units 11:00 Sodium 131 L (137-145) mmol/L Potassium 4.0 (3.5-5.1) mmol/L Chloride 99 (98-107) mmol/L Carbon Dioxide 22 (22-30) mmol/L BUN 11 (9-20) mg/dL Creatinine 1.02 (0.66-1.25) mg/dL Glucose 104 H (74-99) mg/dL Calcium 8.9 (8.4-10.2) mg/dL Total Bilirubin 1.3 (0.2-1.3) mg/dL AST 31 (17-59) U/L ALT 23 (4-49) U/L Alkaline Phosphatase 169 H (38-126) U/L Total Protein 6.9 (6.3-8.2) g/dL Albumin 3.6 (3.5-5.0) g/dL - Imaging Comments: Echocardiogram Difficult patient management LVH with reduced LV systolic function. Severe aortic stenosis, calcific. Dilated left atrium Assessment and Plan Assessment: 1. Altered mental status changes 2. Asymptomatic right-sided carotid stenosis 50-69% per carotid duplex report 3. Generalized weakness 4. History of atrial fibrillation 5. History of coronary artery disease, valve disease, EF 30-35% 6. Previous CVA with some residual left-sided weakness 7. Severe aortic stenosis Plan: 1. Continue symptomatic and supportive care 2. MRA neck and MRI brain ordered, currently pending 3. Continue further neurological workup and recommendations 4. Await MRA neck results, likely this can be followed outpatient Thank you for this consultation further recommendations forthcoming based on clinical course The impression and plan of care has been dictated as directed. Dr. Tipton I performed a history and examination of this patient, discussed the same with the dictator. I agree with the dictator's note ,documented as a scribe. Any additional findings or plans will be noted.
[2023-05-11 11:44] LABS: Glucose,Whole Blood 125 mg/dL (70-110)
--- NOTE | 2023-05-11 12:00 | P.CNNES ---
History of Present Illness Consult date: 05/11/23 Requesting physician: Carloz Gee Reason for Consult: AMS History of Present Illness: This is a 78-year-old gentleman with history of stroke in 2013, atrial fibrillation, hypertension, severe aortic stenosis who presented emergency department because of generalized weakness. History is obtained from medical record that. Per the primary team is seems the notified that patient is becoming more forgetful, repeating himself losing his balance which progressively getting worse over the past 2 weeks. And is seems over the past 3 days prior to procedure the hospital he's unable stand up and he's been sleeping more. His took him off of eliquis since concern of fall. I spoke with the patient's and she stated his symptoms has been going for for past almost 3 weeks and progressively worsening. She stated he was started on anticoagulation about 4 weeks ago but because of his falls she stopped it about 3 weeks ago and notified his well treatment offsider. He is on ASA at home. No history of seizure. He has stroke in 2016 with left hemiparesis (most lower). No recent fever. Some of the workup during his hospital visit consisted of: Sodium was 131, serum glucose is 104, calcium is 8.9. Ammonia is less than 9. TSH is 1.310. CT of the brain is reported as no acute hemorrhage or mass effect. Moderate generalized degenerative and nonspecific white matter changes most typical of remote white matter and microvascular ischemia. I personally reviewed the CT and there is no acute or subacute ischemia. There is no intraparenchymal hemorrhage. Duplex was reported as approximate 50-69% stenosis involving the right internal carotid artery secondary due to hard soft office carotid plaquing. Nonvi sualization of the left vertebral artery. No hemodynamic significant stenosis in the left carotid arterial system. Review of Systems Review of system: The 12 point system was reviewed and apparent positive and negative per HPI. Past Medical History Past Medical History: CVA/TIA, GERD/Reflux, Hypertension Additional Past Medical History / Comment(s): Colon cancer-SIGMOID TUMOR FOUND D URING COLONOSCOPY. shingles. CVA-2012-LT SIDED ARM WEAKNESS. POLYMYALGIA History of Any Multi-Drug Resistant Organisms: None Reported Past Surgical History: Bowel Resection, Heart Catheterization Additional Past Surgical History / Comment(s): 09/01/16 Robotic assisted laparoscopic lower anterior resection, bilateral ureteral stent placement. Other surgical procedures: EGD, COLONOSCOPY Past Anesthesia/Blood Transfusion Reactions: No Reported Reaction Additional Past Anesthesia/Blood Transfusion Reaction / Comment(s): HAS NEVER HAD GENERAL ANESTHESIA. Past Psychological History: No Psychological Hx Reported Additional Psychological History / Comment(s): Pt resides with his spouse. He is independent. He drives. Smoking Status: Never smoker Past Alcohol Use History: Occasional Past Drug Use History: None Reported - Past Family History Father Family Medical History: Cancer Additional Family Medical History / Comment(s): MELANOMA. Father lived to be 92 yrs old. Mother Family Medical History: No Reported History Additional Family Medical History / Comment(s): Mother was healthy and lived to be 92 yrs.old. Medications and Allergies Home Medications Medication Instructions Recorded Confirmed Type Aspirin EC [Ecotrin] 325 mg PO DAILY 05/10/23 05/10/23 History Escitalopram [Lexapro] 20 mg PO HS 05/10/23 05/10/23 History Meloxicam [Mobic] 15 mg PO DAILY 05/10/23 05/10/23 History Metoprolol Succinate (ER) [Toprol 50 mg PO DAILY 05/10/23 05/10/23 History Xl] Omeprazole [PriLOSEC] 40 mg PO DAILY PRN 05/10/23 05/10/23 History Rosuvastatin Calcium 5 mg PO HS 05/10/23 05/10/23 History Allergies Allergy/AdvReac Type Severity Reaction Status Date / Time Iodinated Contrast Media Allergy KIDNEY Verified 05/10/23 11:06 [Iodinated Contrast Media - FAILURE IV Dye] Physical Examination - Vital Signs Vital Signs: Vital Signs Temp Pulse Pulse Resp BP BP Pulse Ox 05/11/23 08:00 98.4 F 83 18 163/96 97 05/11/23 04:30 98 18 170/99 96 05/11/23 00:00 109 H 18 160/95 96 05/10/23 22:29 95 18 176/96 97 05/10/23 20:00 74 18 158/97 05/10/23 19:00 97.8 F 93 18 168/137 97 05/10/23 10:06 97.6 F 100 18 145/109 99 Intake and Output 05/10/23 05/11/23 05/11/23 22:59 06:59 14:59 Output Total 200 Balance -200 Output: Urine 200 Other: Voiding Method Toilet # Voids 1 Weight 86.183 kg GENERAL: The patient is lying in bed and is not in acute distress. NEUROLOGICAL: Higher mental function: The patient is very drowsy but is awakeable to voice. Is oriented to self and time. Not place. He is following simple commands. Language is limited but does not appear he is aphasic. No neglect. Cranial nerves: The pupils are round, equal and reactive to light. Visual key is hard to assess. I felt mild right lower facial weakness that is questionable but felt it seems symetrically and is baseline. No dysarhria. Has hypophonia. Motor: The strength is left forearm extension is 4+ to 5-. Left lower si 4-4+ (old for both). Otherwise 5/5. Normal tone and bulk. Cerebellum: Normal finger to nose bilaterally. Sensation: Sensation is normal to touch throughout. Reflexes (right/left):2+ throughout. Plantars are mute bilaterally. Results - Laboratory Findings CBC and BMP: 05/10/23 10:23 05/10/23 11:00 Abnormal Lab Findings: Abnormal Labs 05/10/23 05/10/23 05/10/23 10:23 10:23 10:23 Monocytes # (Manual) 1.20 H Metamyelocytes # (Man) 0.06 H Myelocytes # (Manual) 0.06 H PT 12.2 H INR 1.2 H Sodium Glucose POC Glucose (mg/dL) Magnesium Alkaline Phosphatase Urine Protein Trace H 05/10/23 05/10/23 11:00 19:17 Monocytes # (Manual) Metamyelocytes # (Man) Myelocytes # (Manual) PT INR Sodium 131 L Glucose 104 H POC Glucose (mg/dL) 128 H Magnesium 1.3 L Alkaline Phosphatase 169 H Urine Protein Assessment and Plan Assessment: Generalized weakness, unsteady gait, memory loss, falls over the past 3 weeks: Uknown cause. Rule out stroke. History of stroke with residual left lower hemiparesis Right ICA stenosis of 50-69% on carotid duplex. History of atrial fibrillation but anticoauglation was stopped about 3 weeks ago by because of recurrent falls. Plan: MR the brain, 2-D echo, TSH, vitamin B12, folate, hemoglobin A1c, lipid panel are ordered by the primary team. I ordered a routine EEG to rule out any seizure or discharges, MRA of the neck for ?right ICA stenosis seen on carotid duplex. I ordered CK level. I reviewed the CT of the head and I felt possibly the lateral ventricle third ventricle seems ?more dilated than atrophy but did not suspect the fourth ventricle was dilated. Unsure if the patient has a component of normal pressure hydrocephalus but seems the unusual for the drastic symptoms in the last 3 weeks if it's mph which seems very low on my differential. Consulted vascular surgery team for further evaluation of patient's right ICA stenosis seen on the carotid duplex Patient is on aspirin 325mg daily and Lipitor 10 mg daily at bedtime. I'll increase the Lipitor to 40 mg daily at bedtime. Patient is on folic acid the 1 mg daily. PT OT and FUNDRAISING SALE REPRESENTATIVE are consulted. We'll defer the rest of the medical measure the primary team For DVT prophylaxis patient is on Lovenox. The plan is discussed with his and primary team. Thank you consultation Time with Patient: Greater than 30
[2023-05-11 12:58] VITALS: BMI 25.7
[2023-05-11 15:34] LABS: Chol/HDL Ratio 2.18 Ratio; VLDL Calculation 15.62 mg/dL (5.00-40.00)
[2023-05-11 16:37] LABS: Glucose,Whole Blood 136 mg/dL (70-110)
--- NOTE | 2023-05-11 17:10 | P.PN ---
Subjective Progress Note Date: 05/11/23 Patient is a 78-year-old male with PMH of CVA and 2013, atrial fibrillation not on anticoagulation, GERD, hypertension, severe aortic stenosis presents to the ED for generalized weakness. Patient is pleasantly confused majority of the history is obtained from his . His reports that the patient has been more forgetful, repeating himself, disorientation and losing his balance frequently which is progressively been getting worse over the past 2 weeks. Over the past 3 days, he has been in bed and unable to stand up. He is also sleeping more. reports taking him off Eliquis recently for the fear of falling. She denies any slurred speech, difficulty swallowing, unilateral weakness. These constellation of symptoms prompted her to call EMS. In the ED, BP was 145/109 with heart rate of 100. CBC was benign. Coagulation panel showed INR 1.2. CMP showed sodium of 131, glucose 104, magnesium of 1.3 and alkaline phosphatase 169. Troponins less than 0.012. Urinalysis showed trace protein. CT head showed small vessel ischemic changes. EKG showed atrial fibrillation. Chest x-ray showed small bilateral pleural effusions. 05/11 Patient was seen and examined. No acute events overnight. Patient is pleasantly confused. He appears sleepy. at bedside. B12 1269. Folate and TSH within normal limits. Carotid doppler shows 50-69% stenosis of the right internal carotid. Echo shows severe with EF 30-35% and concentric LVH. Neurology recommends CVA workup along with EEG. Vascular surgery recommends MRA head and neck. A1c 5.7. Lipid panel shows LDL 51. General: non toxic, no distress, appears at stated age Derm: warm, dry Head: atraumatic, normocephalic, symmetric Eyes: EOMI, no lid lag, anicteric sclera Cardiovascular: Irregularly regular, no murmur Lungs: CTA bilateral, no rhonchi, no rales , no accessory muscle use Ext: no gross muscle atrophy, no edema, no contractures, LLE bruising Neuro: no focal neuro deficits Psych: Alert and oriented x 1 Altered mental status Generalized weakness Carotid stenosis Severe CHF with EF 30-35% Hypomagnesemia Hyponatremia Chronic conditions: CVA and 2013, atrial fibrillation not on anticoagulation, GERD, hypertension, severe aortic stenosis Based on my assessment of this patient, this patient meets a high complexity level of care. Patient has an acute diagnosis of altered mental status that poses a threat to life or bodily function. 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 He is unable to do his ADLs and IADLs. He is AO x 1. Unable to tell me who the president is or what year it is. Prior to this, he was fully functioning. Given that he is off anticoagulation, concern is for CVA. Stroke workup will be pursued. MRI brain and MRA head and neck pending. Telemetry monitoring and advanced neurochecks. PT, OT and ST consulted. Hemoglobin A1c, lipid panel, TSH, folate acid, vitamin B12, ammonia within normal limits. Avoid sedative medication. Frequent redirection. Window side bed. Consult Cardiology with regard to the findings of Echocardiogram. I have reviewed the following managed services consultant notes: I have reviewed the results of the following tests: Hemoglobin A1c, lipid panel, TSH, ammonia, folic acid, vitamin B12, carotid doppler. I have ordered the following tests: MRI brain, EEG and MRA head and neck pending. I have discussed the care of this patient with the following independent historian: Case was discussed extensively with the at bedside. I have independently interpreted the following test below: I have discussed the management of this patient with the following physician: Case was discussed extensively with Dr. Zhu as above. Objective - Vital Signs Vital signs: Vital Signs Temp 98.4 F 05/11/23 08:00 Pulse 83 05/11/23 08:00 Resp 18 05/11/23 08:00 BP 163/96 05/11/23 08:00 Pulse Ox 97 05/11/23 08:00 FiO2 Intake & Output 05/10/23 05/11/23 05/11/23 18:59 06:59 18:59 Output Total 200 Balance -200 Weight 86.183 kg 86.183 kg 86.183 kg Output: Urine 200 Other: Voiding Method Toilet # Voids 1 1 - Labs CBC & Chem 7: 05/10/23 10:23 05/10/23 11:00 Labs: Abnormal Lab Results - Last 24 Hours (Table) 05/10/23 05/11/23 05/11/23 Range/Units 19:17 06:32 06:32 POC Glucose (mg/dL) 128 H (70-110) mg/dL Creatine Kinase 33 L (55-170) U/L Vitamin B12 1269.0 H (200.0-944.0) pg/mL 05/11/23 05/11/23 Range/Units 11:42 16:35 POC Glucose (mg/dL) 125 H 136 H (70-110) mg/dL Creatine Kinase (55-170) U/L Vitamin B12 (200.0-944.0) pg/mL
[2023-05-11 20:06] LABS: Glucose,Whole Blood 116 mg/dL (70-110)
[2023-05-11] MEDS: ATORVASTATIN 40 MG TAB PO SCH (20:28)
[2023-05-11] MEDS: ESCITALOPRAM 20 MG TAB PO SCH (20:28)
--- NOTE | 2023-05-11 21:54 | EEG ---
ELECTROENCEPHALOGRAM REPORT CLINICAL HISTORY: This is a 78-year-old gentleman with altered mental status for the past 3 weeks. The video EEG is obtained to evaluate for seizure and epileptiform activity. RELEVANT MEDICATION: The patient is not on any antiepileptic drug. EEG TYPE: A routine 21-channel EEG is performed with video using the 10/20 electrode placement system. DESCRIPTION: Predominantly, most of the study is in a drowsy state. During brief wakefulness state, the background consists of 12 Hz activity. There is no physiological stage II sleep architecture. There is no focal slowing. INTERICTAL AND ICTAL: None. ACTIVATION PROCEDURE: Photic stimulation did not evoke a posterior driving response. There was no abnormality during the photic stimulation. Hyperventilation was not performed. CLINICAL INTERPRETATION: This is a normal routine EEG. Predominant study was in a drowsy state. There is no focal slowing, epileptiform discharge, or seizure on the EEG. A normal routine EEG does not rule out underlying epilepsy. Clinical correlation is recommended. SUMAYA / ROHITN: [id number] / MTDD
[2023-05-12 05:55] LABS: Glucose,Whole Blood 109 mg/dL (70-110)
--- NOTE | 2023-05-12 07:02 | P.CRDCN ---
History of Present Illness Consult date: 05/12/23 Chief complaint: Generalized weakness History of present illness: The patient is a 78-year-old gentleman with a past medical history significant for recent diagnosis of atrial fibrillation as well as hypertension and dyslipidemia who was brought by his to the emergency department with a change in mental status. The patient somewhat poor historian. No specific complaints of any chest pain or chest discomfort or shortness of breath or lower extremity edema. There was a concern about possible stroke giving the change in mental status and the patient subsequently was seen by the neurology service and further workup was performed including carotid duplex study which showed intermediate disease bilaterally and the patient subsequently seen by the vascular surgery service. Beside that he underwent an echocardiogram which revealed normal biventricular dimension and systolic function with evidence of severe aortic stenosis. The patient is not aware of any prior cardiac history of CAD or or congestive heart failure but he is aware of present to the diagnosis of atrial fibrillation subsequently he was started on oral anticoagula tion and stop the medication. Medication was stopped by his because she is concerned about possible bleeding. The patient currently doesn't look in any overt congestive heart failure. His pressure has been elevated and seems to be consistent with at least a stage II hypertension. He is currently on metoprolol and I am going to a small dose of amlodipine. At this point I don't see that th e patient is in overt congestive heart failure. He is laying flat in bed. He is not hypoxic. He has no lower extremities edema noted on examination. Aortic stenosis need to be addressed as an outpatient. The examination is remarkable for extremely distant heart sounds with a clear breathing sounds bilaterally and no lower extremity edema noted Assessment Change in mental status Atrial fibrillation with controlled heart rate. The atrial fibrillation appears to be permanent Valvular heart disease with severe aortic stenosis on recent echocardiogram Carotid atherosclerosis Uncontrolled hypertension Multiple comorbid conditions Plan Add amlodipine to the current medical regimen Add oral anticoagulation to the current medical regimen The patient currently is undergoing further workup from the neurology standpoint of view The aortic stenosis to be addressed as an outpatient Follow-up with the patient Past Medical History Past Medical History: CVA/TIA, GERD/Reflux, Hypertension Additional Past Medical History / Comment(s): 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 shingles. 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 POLYMYALGIA History of Any Multi-Drug Resistant Organisms: None Reported Past Surgical History: Bowel Resection, Heart Catheterization Additional Past Surgical History / Comment(s): 09/01/16 Robotic assisted laparoscopic lower anterior resection, bilateral ureteral stent placement. Other surgical procedures: EGD, COLONOSCOPY Past Anesthesia/Blood Transfusion Reactions: No Reported Reaction Additional Past Anesthesia/Blood Transfusion Reaction / Comment(s): HAS NEVER HAD GENERAL ANESTHESIA. Past Psychological History: No Psychological Hx Reported Additional Psychological History / Comment(s): Pt resides with his spouse. He is independent. He drives. Smoking Status: Never smoker Past Alcohol Use History: Occasional Past Drug Use History: None Reported - Past Family History Father Family Medical History: Cancer Additional Family Medical History / Comment(s): MELANOMA. Father lived to be 92 yrs old. Mother Family Medical History: No Reported History Additional Family Medical History / Comment(s): Mother was healthy and lived to be 92 yrs.old. Medications and Allergies Home Medications Medication Instructions Recorded Confirmed Type Aspirin EC [Ecotrin] 325 mg PO DAILY 05/10/23 05/10/23 History Escitalopram [Lexapro] 20 mg PO HS 05/10/23 05/10/23 History Meloxicam [Mobic] 15 mg PO DAILY 05/10/23 05/10/23 History Metoprolol Succinate (ER) [Toprol 50 mg PO DAILY 05/10/23 05/10/23 History Xl] Omeprazole [PriLOSEC] 40 mg PO DAILY PRN 05/10/23 05/10/23 History Rosuvastatin Calcium 5 mg PO HS 05/10/23 05/10/23 History Allergies Allergy/AdvReac Type Severity Reaction Status Date / Time Iodinated Contrast Media Allergy KIDNEY Verified 05/10/23 11:06 [Iodinated Contrast Media - FAILURE IV Dye] Physical Exam Vitals: Vital Signs Temp Pulse Resp BP Pulse Ox 05/12/23 04:00 98 F 94 16 166/107 98 05/12/23 00:00 97.7 F 92 16 174/110 96 05/11/23 20:00 97.5 F L 76 15 162/100 98 05/11/23 08:00 98.4 F 83 18 163/96 97 Intake and Output 05/11/23 05/11/23 05/12/23 14:59 22:59 06:59 Intake Total 20 250 Output Total 100 Balance 20 150 Intake: IV 20 Invasive Line 1 10 Invasive Line 2 10 Oral 250 Output: Urine 100 Other: Voiding Method Toilet Urinal # Voids 1 1 Weight 86.183 kg Results 05/10/23 10:23 05/10/23 11:00 Lipids 05/11/23 Range/Units 06:32 Triglycerides 78.10 (0.00-149.00) mg/dL Cholesterol 123.00 (0.00-200.00) mg/dL HDL Cholesterol 56.40 (40.00-60.00) mg/dL Cholesterol/HDL Ratio 2.18 Ratio Current Medications Generic Name Dose Route Start Last Admin Trade Name Freq PRN Reason Stop Dose Admin Aspirin 325 mg 05/11/23 09:00 05/11/23 09:11 Aspirin 325 Mg Tab PO 325 mg DAILY JD Administration Atorvastatin Calcium 40 mg 05/11/23 21:00 05/11/23 20:28 Atorvastatin 40 Mg Tab PO 40 mg HS JD Administration Enoxaparin Sodium 40 mg 05/11/23 09:00 05/11/23 09:11 Enoxaparin 40 Mg/0.4 Ml Syringe SQ 40 mg DAILY JD Administration Escitalopram Oxalate 20 mg 05/10/23 21:00 05/11/23 20:28 Escitalopram 20 Mg Tab PO 20 mg HS JD Administration Folic Acid 1 mg 05/11/23 09:00 05/11/23 09:11 Folic Acid 1 Mg Tab PO 1 mg DAILY JD Administration Metoprolol Succinate 50 mg 05/11/23 09:00 05/11/23 09:11 Metoprolol Succinate (Er) 50 Mg Tab.Er.24h PO 50 mg DAILY JD Administration Multivitamins 1 each 05/11/23 09:00 05/11/23 09:11 Multivitamins, Thera 1 Each Tab PO 1 each DAILY JD Administration Pantoprazole Sodium 40 mg 05/10/23 16:47 Pantoprazole 40 Mg Tablet PO DAILY PRN GI Upset Thiamine HCl 100 mg 05/12/23 09:00 Thiamine 100 Mg Tab PO DAILY JD Intake and Output 05/11/23 05/11/23 05/12/23 14:59 22:59 06:59 Intake Total 20 250 Output Total 100 Balance 20 150 Intake: IV 20 Invasive Line 1 10 Invasive Line 2 10 Oral 250 Output: Urine 100 Other: Voiding Method Toilet Urinal # Voids 1 1 Weight 86.183 kg Patient Weight 05/12/23 06:59 Weight 86.183 kg 05/10/23 10:23 05/10/23 11:00
[2023-05-12] MEDS: METOPROLOL SUCCINATE (ER) 50 MG TAB.ER.24H PO SCH (08:42)
[2023-05-12] MEDS: FOLIC ACID 1 MG TAB PO SCH (08:42)
[2023-05-12] MEDS: APIXABAN 2.5 MG TABLET PO SCH ×2 (08:42→21:13)
[2023-05-12] MEDS: MULTIVITAMINS, THERA 1 EACH TAB PO SCH (08:43)
[2023-05-12] MEDS: THIAMINE 100 MG TAB PO SCH (08:43)
[2023-05-12] MEDS: ASPIRIN 325 MG TAB PO SCH (08:46)
[2023-05-12 11:33] LABS: Glucose,Whole Blood 167 mg/dL (70-110)
--- NOTE | 2023-05-12 12:38 | P.PN ---
Subjective Progress Note Date: 05/12/23 Patient is a 78-year-old male with PMH of CVA and 2013, atrial fibrillation not on anticoagulation, GERD, hypertension, severe aortic stenosis presents to the ED for generalized weakness. Patient is pleasantly confused majority of the history is obtained from his . His reports that the patient has been more forgetful, repeating himself, disorientation and losing his balance frequently which is progressively been getting worse over the past 2 weeks. Over the past 3 days, he has been in bed and unable to stand up. He is also sleeping more. reports taking him off Eliquis recently for the fear of falling. She denies any slurred speech, difficulty swallowing, unilateral weakness. These constellation of symptoms prompted her to call EMS. In the ED, BP was 145/109 with heart rate of 100. CBC was benign. Coagulation panel showed INR 1.2. CMP showed sodium of 131, glucose 104, magnesium of 1.3 and alkaline phosphatase 169. Troponins less than 0.012. Urinalysis showed trace protein. CT head showed small vessel ischemic changes. EKG showed atrial fibrillation. Chest x-ray showed small bilateral pleural effusions. 05/11 Patient was seen and examined. No acute events overnight. Patient is pleasantly confused. He appears sleepy. at bedside. B12 1269. Folate and TSH within normal limits. Carotid doppler shows 50-69% stenosis of the right internal carotid. Echo shows severe with EF 30-35% and concentric LVH. Neurology recommends CVA workup along with EEG. Vascular surgery recommends MRA head and neck. A1c 5.7. Lipid panel shows LDL 51. 05/12 Patient was seen and examined. Clinical condition unchanged. EEG negative. Cardiology was consulted with regards to echocardiogram. Cardiology recommends no further workup and outpatient follow-up. MRI brain and MRA head and neck pending. General: non toxic, no distress, appears at stated age Derm: warm, dry Head: atraumatic, normocephalic, symmetric Eyes: EOMI, no lid lag, anicteric sclera Cardiovascular: Irregularly regular, no murmur Lungs: CTA bilateral, no rhonchi, no rales , no accessory muscle use Ext: no gross muscle atrophy, no edema, no contractures, LLE bruising Neuro: no focal neuro deficits Psych: Alert and oriented x 1 Altered mental status Generalized weakness Carotid stenosis Severe CHF with EF 30-35% Hypomagnesemia Hyponatremia Chronic conditions: CVA and 2013, atrial fibrillation not on anticoagulation, GERD, hypertension, severe aortic stenosis Based on my assessment of this patient, this patient meets a high complexity level of care. Patient has an acute diagnosis of altered mental status that poses a threat to life or bodily function. According to the , this is an acute frame changer the past 2 weeks. He is unable to do his ADLs and IADLs. He is AO x 1. Unable to tel l me who the president is or what year it is. Prior to this, he was fully functioning. Given that he is off anticoagulation, concern is for CVA. Stroke workup will be pursued. MRI brain and MRA head and neck pending. Telemetry monitoring and advanced neurochecks. PT, OT and ST consulted. Hemoglobin A1c, lipid panel, TSH, folate acid, vitamin B12, ammonia within normal limits. Avoid sedative medication. Frequent redirection. Window side bed. Cardiology consulted with regard to the findings of Echocardiogram, recommends outpatient followup and no further workup. I have reviewed the following medical economics consultant notes: Cardiology note as above. I have reviewed the results of the following tests: EEG. I have ordered the following tests: MRI brain and MRA head and neck pending. I have discussed the care of this patient with the following independent historian: I have independently interpreted the following test below: I have discussed the management of this patient with the following physician: Objective - Vital Signs Vital signs: Vital Signs Temp 97.6 F 05/12/23 08:40 Pulse 103 H 05/12/23 08:40 Resp 16 05/12/23 08:40 BP 201/114 05/12/23 08:40 Pulse Ox 94 L 05/12/23 08:40 FiO2 Intake & Output 05/11/23 05/12/23 05/12/23 18:59 06:59 18:59 Intake Total 270 258 Output Total 100 Balance 170 258 Weight 86.183 kg Intake: IV 20 20 Invasive Line 1 10 10 Invasive Line 2 10 10 Oral 250 238 Output: Urine 100 Other: Voiding Method Toilet Toilet Urinal Urinal # Voids 1 1 - Labs CBC & Chem 7: 05/10/23 10:23 05/10/23 11:00 Labs: Abnormal Lab Results - Last 24 Hours (Table) 05/11/23 05/11/23 05/11/23 Range/Units 06:32 06:32 16:35 POC Glucose (mg/dL) 136 H (70-110) mg/dL Creatine Kinase 33 L (55-170) U/L Vitamin B12 1269.0 H (200.0-944.0) pg/mL 05/11/23 05/12/23 Range/Units 20:03 11:31 POC Glucose (mg/dL) 116 H 167 H (70-110) mg/dL Creatine Kinase (55-170) U/L Vitamin B12 (200.0-944.0) pg/mL
--- NOTE | 2023-05-12 13:18 | P.PN ---
Subjective Progress Note Date: 05/12/23 The patient is seen at bedside and is accompanied with his who feels she is doing much better. Patient is sitting in a recliner chair and he feels he is doing well as well. Per the patient she noticed that he has slight right ptosis of the right eye for past 3 weeks but she denies him having fluctuation and the worsening of doses as the day goes on or worsening of weakness as the day goes on. Objective - Vital Signs Vital signs: Vital Signs Temp 97.7 F 05/12/23 12:30 Pulse 85 05/12/23 12:30 Resp 16 05/12/23 12:30 BP 162/105 05/12/23 12:30 Pulse Ox 97 05/12/23 12:30 FiO2 Intake & Output 05/11/23 05/12/23 05/12/23 18:59 06:59 18:59 Intake Total 270 258 Output Total 100 Balance 170 258 Weight 86.183 kg Intake: IV 20 20 Invasive Line 1 10 10 Invasive Line 2 10 10 Oral 250 238 Output: Urine 100 Other: Voiding Method Toilet Toilet Urinal Urinal # Voids 1 1 - Exam Gen.: Patient is resting in a recliner chair and is not in acute distress. Neuro: Patient is awake alert oriented to self he states he is in the hospital. He states the year is 2002 and the month is June. He is able to name his the name correctly. He is able to name the capital [place]. He is following simple commands. No aphasia. Pupils are round equal and reactive to light. Extraocular movement is intact and no nystagmus. Slight Right eye ptosis and per had it for past 3 week bu otherwise no facial weakness. No dysarthria. Strength is 5 out of 5 throughout uppers while lowers are 5- throughout. Some of the workup during his hospital visit consisted of: Sodium was 131, serum glucose is 104, calcium is 8.9. Ammonia is less than 9. TSH is 1.310. The panel is a triglyceride of 78, cholesterol is 123, LDLs 51 and HDL is 56 Vitamin B12 was 1269 Folate is 25 CK level is [address] is 5[address] of the brain is reported as no acute hemorrhage or mass effect. Moderate generalized degenerative and nonspecific white matter changes most typical of remote white matter and microvascular ischemia. I personally reviewed the CT and there is no acute or subacute ischemia. There is no intraparenchymal hemorrhage. Carotid Duplex was reported as approximate 50-69% stenosis involving the right internal carotid artery secondary due to hard soft office carotid plaquing. Nonvisualization of the left vertebral artery. No hemodynamic significant stenosis in the left carotid arterial system. Routine EEG is normal. Predominant study was in a drowsy state. There is no focal slowing, epileptiform discharges or seizure on the EEG. 2-D echo was reported as difficult the patient management. Left ventricular hypertrophy with reduced left ventricle stopped function. Severe aortic stenosis, calcific. Dilated left atrium. - Labs CBC & Chem 7: 05/10/23 10:23 05/10/23 11:00 Labs: Abnormal Lab Results - Last 24 Hours (Table) 05/11/23 05/11/23 05/11/23 Range/Units 06:32 16:35 20:03 POC Glucose (mg/dL) 136 H 116 H (70-110) mg/dL Vitamin B12 1269.0 H (200.0-944.0) pg/mL 05/12/23 Range/Units 11:31 POC Glucose (mg/dL) 167 H (70-110) mg/dL Vitamin B12 (200.0-944.0) pg/mL Assessment and Plan Assessment: Generalized weakness, unsteady gait, memory loss, falls over the past 3 weeks: Uknown cause. Rule out stroke--today is doing much better but has ptsosis of right eye and per had it for 3 weeks. Unsure if patient symptoms due to severe aortic stenosis Has severe aortic stenosis on 2D echo History of stroke with residual left lower hemiparesis Right ICA stenosis of 50-69% on carotid duplex. History of atrial fibrillation but anticoauglation was stopped about 3 weeks ago by because of recurrent falls. Plan: Routine EEG is normal. Predominant study was in a drowsy state. There is no focal slowing, epileptiform discharges or seizure on the EEG. Pending MRI Brain and MRA neck. I reviewed the CT of the head and I felt possibly the lateral ventricle third ventricle seems ?more dilated than atrophy but did not suspect the fourth ventricle was dilated. Unsure if the patient has a component of normal pressure hydrocephalus but seems the unusual for the drastic symptoms in the last 3 weeks if it's mph which seems very low on my differential. Also feel low since patient is doing much better today compared which will not give fluctuation in symptoms. Consulted vascular surgery team for further evaluation of patient's right ICA stenosis seen on the carotid duplex Patient is on aspirin 325mg daily and Lipitor 40 mg daily at bedtime. For severe aortic stenosis, cardiology is consulted. Patient is on folic acid the 1 mg daily. PT OT and GENOMICS SCIENTIST are consulted. We'll defer the rest of the medical measure the primary team For DVT prophylaxis patient is on Lovenox. The plan is discussed with his who is at bedside. Time with Patient: Less than 30
[2023-05-12 16:30] LABS: Glucose,Whole Blood 92 mg/dL (70-110)
[2023-05-12 20:47] LABS: Glucose,Whole Blood 153 mg/dL (70-110)
[2023-05-12] MEDS: ESCITALOPRAM 20 MG TAB PO SCH (21:12)
[2023-05-12] MEDS: ATORVASTATIN 40 MG TAB PO SCH (21:13)
[2023-05-13 06:15] LABS: Glucose,Whole Blood 192 mg/dL (70-110)
--- NOTE | 2023-05-13 07:26 | P.PN ---
Subjective Progress Note Date: 05/13/23 Principal diagnosis: Aortic stenosis The patient is a 78-year-old gentleman with a past medical history significant for recent diagnosis of atrial fibrillation as well as hypertension and dyslipidemia who was brought by his to the emergency department with a change in mental status. The patient somewhat poor historian. No specific complaints of any chest pain or chest discomfort or shortness of breath or lower extremity edema. There was a concern about possible stroke giving the change in mental status and the patient subsequently was seen by the neurology service and further workup was performed including carotid duplex study which showed intermediate disease bilaterally and the patient subsequently seen by the vascular surgery service. Beside that he underwent an echocardiogram which revealed normal biventricular dimension and systolic function with evidence of severe aortic stenosis. The patient is not aware of any prior cardiac history of CAD or or congestive heart failure but he is aware of present to the diagnosis of atrial fibrillation subsequently he was started on oral anticoagulation and stop the medication. Medication was stopped by his because she is concerned about possible bleeding. The patient currently doesn't look in any overt congestive heart failure. His pressure has been elevated and seems to be consistent with at least a stage II hypertension. He is currently on metoprolol and I am going to a small dose of amlodipine. At this point I don't see that the patient is in overt congestive heart failure. He is laying f lat in bed. He is not hypoxic. He has no lower extremities edema noted on examination. Aortic stenosis need to be addressed as an outpatient. 05/13/2023 The patient was seen and evaluated this morning. He is asymptomatic interval of chest pain or chest discomfort or shortness of breath. He is euvolemic on examination. The neurology workup continues to be in progress and the patient is in process of having an MRI later on today. The pressure has been better after lisinopril was added to the current medical regimen including metoprolol. From the cardiac standpoint of view, we'll continue the current medical regimen. The examination is remarkable for extremely distant heart sounds with systolic murmur and clear breathing sounds bilaterally and no lower extremity edema noted Assessment Change in mental status which has improved Atrial fibrillation with controlled heart rate. The atrial fibrillation appears to be permanent Valvular heart disease with severe aortic stenosis on recent echocardiogram Carotid atherosclerosis Uncontrolled hypertension Multiple comorbid conditions Plan The pressure appears to be under good control on the current medical record Continue oral anticoagulation for the atrial fibrillation The patient currently is undergoing further workup from the neurology standpoint of view The aortic stenosis to be addressed as an outpatient Follow-up with the patient Objective - Vital Signs Vital signs: Vital Signs Temp 98.2 F 05/13/23 04:00 Pulse 98 05/13/23 04:00 Resp 16 05/13/23 04:00 BP 138/94 05/13/23 04:00 Pulse Ox 97 05/13/23 04:00 FiO2 Intake & Output 05/12/23 05/13/23 05/13/23 18:59 06:59 18:59 Intake Total 774 560 Balance 774 560 Intake: IV 20 20 Invasive Line 1 10 10 Invasive Line 2 10 10 Oral [id number] Other: Voiding Method Toilet Toilet Urinal Urinal # Voids 2 - Labs CBC & Chem 7: 05/10/23 10:23 05/10/23 11:00 Labs: Abnormal Lab Results - Last 24 Hours (Table) 05/12/23 05/12/23 05/13/23 Range/Units 11:31 20:32 06:13 POC Glucose (mg/dL) 167 H 153 H 192 H (70-110) mg/dL
[2023-05-13] MEDS: METOPROLOL SUCCINATE (ER) 50 MG TAB.ER.24H PO SCH (08:38)
[2023-05-13] MEDS: ASPIRIN 325 MG TAB PO SCH (08:38)
[2023-05-13] MEDS: FOLIC ACID 1 MG TAB PO SCH (08:38)
[2023-05-13] MEDS: THIAMINE 100 MG TAB PO SCH (08:38)
[2023-05-13] MEDS: APIXABAN 2.5 MG TABLET PO SCH ×2 (08:38→21:27)
[2023-05-13] MEDS: MULTIVITAMINS, THERA 1 EACH TAB PO SCH (08:38)
--- NOTE | 2023-05-13 11:30 | P.PN ---
Subjective Progress Note Date: 05/13/23 The patient is seen at bedside and feels about the same. Objective - Vital Signs Vital signs: Vital Signs Temp 98 F 05/13/23 08:35 Pulse 94 05/13/23 08:35 Resp 18 05/13/23 08:35 BP 121/73 05/13/23 08:35 Pulse Ox 97 05/13/23 11:17 FiO2 Intake & Output 05/12/23 05/13/23 05/13/23 18:59 06:59 18:59 Intake Total 774 560 20 Balance 774 560 20 Intake: IV 20 20 20 Invasive Line 1 10 10 10 Invasive Line 2 10 10 10 Oral [id number] Other: Voiding Method Toilet Toilet Toilet Urinal Urinal Urinal # Voids 2 - Exam Gen.: Patient is sitting on bed and is not in acute distress. Neuro: Patient is drowsy but is awakeable to voice. States he is in the hospital. He is follow few simple commands. Pupils are round equal and reactive to light. Extraocular movement is intact and no nystagmus. Slight Right eye ptosis and per had it for past 3 week but otherwise no facial weakness. No dysarthria. Strength is lifting bilateral uppers and lowers above gravity. Some of the workup during his hospital visit consisted of: Sodium was 131, serum glucose is 104, calcium is 8.9. Ammonia is less than 9. TSH is 1.310. Lipid panel is a triglyceride of 78, cholesterol is 123, LDLs 51 and HDL is 56 Vitamin B12 was 1269 Folate is 25 CK level is 33 [address]c is 5.8. CT of the brain is reported as no acute hemorrhage or mass effect. Moderate generalized degenerative and nonspecific white matter changes most typical of re mote white matter and microvascular ischemia. I personally reviewed the CT and there is no acute or subacute ischemia. There is no intraparenchymal hemorrhage. Carotid Duplex was reported as approximate 50-69% stenosis involving the right internal carotid artery secondary due to hard soft office carotid plaquing. Nonvisualization of the left vertebral artery. No hemodynamic significant stenosis in the left carotid arterial system. Routine EEG is normal. Predominant study was in a drowsy state. There is no focal slowing, epileptiform discharges or seizure on the EEG. 2-D echo was reported as difficult the patient management. Left ventricular hypertrophy with reduced left ventricle stopped function. Severe aortic stenosis, calcific. Dilated left atrium. - Labs CBC & Chem 7: 05/10/23 10:23 05/10/23 11:00 Labs: Abnormal Lab Results - Last 24 Hours (Table) 05/12/23 05/12/23 05/13/23 Range/Units 11:31 20:32 06:13 POC Glucose (mg/dL) 167 H 153 H 192 H (70-110) mg/dL Assessment and Plan Assessment: Generalized weakness, unsteady gait, memory loss, falls over the past 3 weeks: Unknown cause. Rule out stroke--symptoms improving but has ptsosis of right eye and per had it for 3 weeks. Unsure if some of patient symptoms due to severe aortic stenosis Has severe aortic stenosis on 2D echo History of stroke with residual left lower hemiparesis Right ICA stenosis of 50-69% on carotid duplex. History of atrial fibrillation but anticoauglation was stopped about 3 weeks ago by because of recurrent falls. Plan: Routine EEG is normal. Predominant study was in a drowsy state. There is no focal slowing, epileptiform discharges or seizure on the EEG. Pending MRI Brain and MRA neck. I reviewed the CT of the head and I felt possibly the lateral ventricle third ventricle seems ?more dilated than atrophy but did not suspect the fourth ventricle was dilated. Unsure if the patient has a component of normal pressure hydrocephalus but seems the unusual for the drastic symptoms in the last 3 weeks if it's mph which seems very low on my differential. Also feel low since patient is doing much better today compared which will not give fluctuation in symptoms. Consulted vascular surgery team for further evaluation of patient's right ICA stenosis seen on the carotid duplex Patient is on aspirin 325mg daily and Lipitor 40 mg daily at bedtime. For severe aortic stenosis, cardiology is consulted. Patient is on folic acid the 1 mg daily. PT OT and REPORT PROGRAMMER are consulted. We'll defer the rest of the medical measure the primary team For DVT prophylaxis patient is on Lovenox. The plan is discussed with his nurse. Dr. Cedeño will start neurology service tomorrow A.M. Time with Patient: Less than 30
[2023-05-13 11:32] LABS: Glucose,Whole Blood 101 mg/dL (70-110)
--- NOTE | 2023-05-13 12:38 | P.PN ---
Subjective Progress Note Date: 05/13/23 Patient is a 78-year-old male with PMH of CVA and 2013, atrial fibrillation not on anticoagulation, GERD, hypertension, severe aortic stenosis presents to the ED for generalized weakness. Patient is pleasantly confused majority of the history is obtained from his . His reports that the patient has been more forgetful, repeating himself, disorientation and losing his balance frequently which is progressively been getting worse over the past 2 weeks. Over the past 3 days, he has been in bed and unable to stand up. He is also sleeping more. reports taking him off Eliquis recently for the fear of falling. She denies any slurred speech, difficulty swallowing, unilateral weakness. These constellation of symptoms prompted her to call EMS. In the ED, BP was 145/109 with heart rate of 100. CBC was benign. Coagulation panel showed INR 1.2. CMP showed sodium of 131, glucose 104, magnesium of 1.3 and alkaline phosphatase 169. Troponins less than 0.012. Urinalysis showed trace protein. CT head showed small vessel ischemic changes. EKG showed atrial fibrillation. Chest x-ray showed small bilateral pleural effusions. 05/11 Patient was seen and examined. No acute events overnight. Patient is pleasantly confused. He appears sleepy. at bedside. B12 1269. Folate and TSH within normal limits. Carotid doppler shows 50-69% stenosis of the right internal carotid. Echo shows severe with EF 30-35% and concentric LVH. Neurology recommends CVA workup along with EEG. Vascular surgery recommends MRA head and neck. A1c 5.7. Lipid panel shows LDL 51. 05/12 Patient was seen and examined. Clinical condition unchanged. EEG negative. Cardiology was consulted with regards to echocardiogram. Cardiology recommends no further workup and outpatient follow-up. MRI brain and MRA head and neck pending. 05/13 Patient was seen and examined. Clinical condition unchanged. EEG negative. MRI brain and MRA head and neck pending. General: non toxic, no distress, appears at stated age Derm: warm, dry Head: atraumatic, normocephalic, symmetric Eyes: EOMI, no lid lag, anicteric sclera Cardiovascular: Irregularly regular, no murmur Lungs: CTA bilateral, no rhonchi, no rales , no accessory muscle use Ext: no gross muscle atrophy, no edema, no contractures, LLE bruising Neuro: no focal neuro deficits Psych: Alert and oriented x 1 Altered mental status Generalized weakness Carotid stenosis Severe CHF with EF 30-35% Hypomagnesemia Hyponatremia Chronic conditions: CVA and 2013, atrial fibrillation not on anticoagulation, GERD, hypertension, severe aortic stenosis Based on my assessment of this patient, this patient meets a high complexity level of care. Patient has an acute diagnosis of altered mental status that poses a threat to life or bodily function. According to the , this is an acute change management expert the past 2 weeks. He is unable to do his ADLs and IADLs. He is AO x 1. Unable to tell me who the president is or what year it is. Prior to this, he was fully functioning. Given that he is off anticoagulation, concern is for CVA. Stroke workup will be pursued. MRI brain and MRA head and neck pending. Telemetry monitoring and advanced neurochecks. PT, OT and ST consulted. Hemoglobin A1c, lipid panel, TSH, folate acid, vitamin B12, ammonia within normal limits. Avoid sedative medication. Frequent redirection. Window side bed. Cardiology consulted with regard to the findings of Echocardiogram, recommends outpatient followup and no further workup. Plans for [place] on discharge. I have reviewed the following trousseau consultant notes: Cardiology note as above. I have reviewed the results of the following tests: I have ordered the following tests: MRI brain and MRA head and neck pending. I have discussed the care of this patient with the following independent historian: I have independently interpreted the following test below: I have discussed the management of this patient with the following physician: Objective - Vital Signs Vital signs: Vital Signs Temp 98 F 05/13/23 08:35 Pulse 94 05/13/23 08:35 Resp 18 05/13/23 08:35 BP 121/73 05/13/23 08:35 Pulse Ox 97 05/13/23 11:17 FiO2 Intake & Output 05/12/23 05/13/23 05/13/23 18:59 06:59 18:59 Intake Total 774 560 20 Balance 774 560 20 Intake: IV 20 20 20 Invasive Line 1 10 10 10 Invasive Line 2 10 10 10 Oral [id number] Other: Voiding Method Toilet Toilet Toilet Urinal Urinal Urinal # Voids 2 - Labs CBC & Chem 7: 05/10/23 10:23 05/10/23 11:00 Labs: Abnormal Lab Results - Last 24 Hours (Table) 05/12/23 05/13/23 Range/Units 20:32 06:13 POC Glucose (mg/dL) 153 H 192 H (70-110) mg/dL
[2023-05-13 16:38] LABS: Glucose,Whole Blood 159 mg/dL (70-110)
[2023-05-13 20:11] LABS: Glucose,Whole Blood 123 mg/dL (70-110)
[2023-05-13] MEDS: ESCITALOPRAM 20 MG TAB PO SCH (21:27)
[2023-05-13] MEDS: ATORVASTATIN 40 MG TAB PO SCH (21:27)
[2023-05-14 05:40] LABS: Glucose,Whole Blood 92 mg/dL (70-110)
--- NOTE | 2023-05-14 06:15 | CT ---
EXAM: CT Head Without Intravenous Contrast CLINICAL HISTORY: ITS.REASON CT Reason: fall hit head, on eliquis TECHNIQUE: Axial computed tomography images of the head/brain without intravenous contrast. CTDI is 49.1 mGy and DLP is 1154 mGy-cm. This CT exam was performed using one or more of the following dose reduction techniques: automated exposure control, adjustment of the mA and/or kV according to patient size, and/or use of iterative reconstruction technique. COMPARISON: Comparison is made to prior head CT from May 10, 2023. FINDINGS: Brain: Remote ischemic injuries of the right frontal, parietal and occipital lobes with encephalomalacia and gliosis. No hemorrhage. Moderate nonspecific white matter changes. No edema. Ventricles: Moderate ventriculomegaly. Bones/joints: Unremarkable. No acute fracture. Soft tissues: Unremarkable. Sinuses: Unremarkable as visualized. No acute sinusitis. Mastoid air cells: Unremarkable as visualized. No mastoid effusion. IMPRESSION: No evidence of acute intracranial pathology.
[2023-05-14] MEDS: MULTIVITAMINS, THERA 1 EACH TAB PO SCH (08:39)
[2023-05-14] MEDS: ASPIRIN 325 MG TAB PO SCH (08:39)
[2023-05-14] MEDS: THIAMINE 100 MG TAB PO SCH (08:39)
[2023-05-14] MEDS: FOLIC ACID 1 MG TAB PO SCH (08:39)
[2023-05-14] MEDS: METOPROLOL SUCCINATE (ER) 50 MG TAB.ER.24H PO SCH (08:39)
[2023-05-14] MEDS: APIXABAN 2.5 MG TABLET PO SCH (08:39)
[2023-05-14 11:24] LABS: Glucose,Whole Blood 118 mg/dL (70-110)
--- NOTE | 2023-05-14 13:52 | P.PN ---
Subjective HISTORY OF PRESENT ILLNESS: The patient is a 78-year-old gentleman with a past medical history significant for recent diagnosis of atrial fibrillation as well as hypertension and dyslipidemia who was brought by his to the emergency department with a change in mental status. The patient somewhat poor historian. No specific complaints of any chest pain or chest discomfort or shortness of breath or lower extremity edema. There was a concern about possible stroke giving the change in mental status and the patient subsequently was seen by the neurology service and further workup was performed including carotid duplex study which showed intermediate disease bilaterally and the patient subsequently seen by the pa scular surgery service. Beside that he underwent an echocardiogram which revealed normal biventricular dimension and systolic function with evidence of severe aortic stenosis. The patient is not aware of any prior cardiac history of CAD or or congestive heart failure but he is aware of present to the diagnosis of atrial fibrillation subsequently he was started on oral anticoagulation and stop the medication. Medication was stopped by his because she is concerned about possible bleeding. The patient currently doesn't look in any overt congestive heart failure. His pressure has been elevated and seems to be consistent with at least a stage II hypertension. He is currently on metoprolol and I am going to a small dose of amlodipine. At this point I don't see that the patient is in overt congestive heart failure. He is laying flat in bed. He is not hypoxic. He has no lower extremities edema noted on examination. Aortic stenosis need to be addressed as an outpatient. 05/13/2023 The patient was seen and evaluated this morning. He is asymptomatic interval of chest pain or chest discomfort or shortness of breath. He is euvolemic on examination. The neurology workup continues to be in progress and the patient is in process of having an MRI later on today. The pressure has been better after lisinopril was added to the current medical regimen including metoprolol. From the cardiac standpoint of view, we'll continue the current medical regimen. 05/14/2023 Patient examined this morning at the bedside. Patient remains somewhat confused this morning. He denies chest pain or pressure. He denies shortness of breath. Telemetry reveals atrial fibrillation with controlled ventricular rate. Patient underwent CT of the brain which was negative for acute process. He is scheduled for MRI of the brain today. PHYSICAL EXAM: VITAL SIGNS: Reviewed. GENERAL: Well-developed in no acute distress. NECK: Supple. No JVD or thyromegaly LUNGS: Respirations even and unlabored. Lungs essentially clear to auscultation bilaterally. HEART: Irregular rate and rhythm. S1 and S2 heard. Systolic murmur noted. EXTREMITIES: Normal range of motion. No clubbing or cyanosis. Peripheral pulses intact. No lower extremity edema ASSESSMENT: Altered mental status Persistent atrial fibrillation with controlled ventricular rates Valvular heart disease including severe aortic stenosis Cardiomyopathy, ejection fraction 30-35%, unclear if ischemic or nonischemic Hypertension Carotid arthrosclerosis PLAN: Continue current cardiac medications Increase Eliquis to 5mg BID for adequate thromboembolic protection Discontinue aspirin Patient was originally scheduled for outpatient JYOTI and heart catheterization tomorrow as part of AVR workup. This will be rescheduled. Neurology following. Patient scheduled for MRI of the brain today Further recommendations pending patient course Nurse practitioner note has been reviewed by physician. Signing provider agrees with the documented findings, assessment, and plan of care. Objective - Vital Signs Vital signs: Vital Signs Temp 97.6 F 05/14/23 11:11 Pulse 74 05/14/23 11:11 Resp 18 05/14/23 11:11 BP 148/99 05/14/23 11:11 Pulse Ox 96 05/14/23 11:16 FiO2 Intake & Output 05/13/23 05/14/23 05/14/23 18:59 06:59 18:59 Intake Total 2296 578 Balance 2296 578 Intake: IV 20 Invasive Line 1 10 Invasive Line 2 10 Oral [id number] Other: Voiding Method Toilet Toilet Toilet Urinal Urinal Urinal # Voids 4 3 - Labs CBC & Chem 7: 05/10/23 10:23 05/10/23 11:00 Labs: Abnormal Lab Results - Last 24 Hours (Table) 05/13/23 05/13/23 05/14/23 Range/Units 16:28 20:09 11:22 POC Glucose (mg/dL) 159 H 123 H 118 H (70-110) mg/dL
[2023-05-14 16:28] LABS: Glucose,Whole Blood 122 mg/dL (70-110)
--- NOTE | 2023-05-14 16:51 | P.PN ---
Subjective Progress Note Date: 05/14/23 Patient is a 78-year-old male with PMH of CVA and 2013, atrial fibrillation not on anticoagulation, GERD, hypertension, severe aortic stenosis presents to the ED for generalized weakness. Patient is pleasantly confused majority of the history is obtained from his . His reports that the patient has been more forgetful, repeating himself, disorientation and losing his balance frequently which is progressively been getting worse over the past 2 weeks. Over the past 3 days, he has been in bed and unable to stand up. He is also sleeping more. reports taking him off Eliquis recently for the fear of falling. She denies any slurred speech, difficulty swallowing, unilateral weakness. These constellation of symptoms prompted her to call EMS. In the ED, BP was 145/109 with heart rate of 100. CBC was benign. Coagulation panel showed INR 1.2. CMP showed sodium of 131, glucose 104, magnesium of 1.3 and alkaline phosphatase 169. Troponins less than 0.012. Urinalysis showed trace protein. CT head showed small vessel ischemic changes. EKG showed atrial fibrillation. Chest x-ray showed small bilateral pleural effusions. 05/11 Patient was seen and examined. No acute events overnight. Patient is pleasantly confused. He appears sleepy. at bedside. B12 1269. Folate and TSH within normal limits. Carotid doppler shows 50-69% stenosis of the right internal carotid. Echo shows severe with EF 30-35% and concentric LVH. Neurology recommends CVA workup along with EEG. Vascular surgery recommends MRA head and neck. A1c 5.7. Lipid panel shows LDL 51. 05/12 Patient was seen and examined. Clinical condition unchanged. EEG negative. Cardiology was consulted with regards to echocardiogram. Cardiology recommends no further workup and outpatient follow-up. MRI brain and MRA head and neck pending. 05/13 Patient was seen and examined. Clinical condition unchanged. MRI brain and MRA head and neck pending. 05/14 Patient was seen and examined. Clinical condition unchanged. MRI brain and MRA head and neck pending. General: non toxic, no distress, appears at stated age Derm: warm, dry Head: atraumatic, normocephalic, symmetric Eyes: EOMI, no lid lag, anicteric sclera Cardiovascular: Irregularly regular, no murmur Lungs: CTA bilateral, no rhonchi, no rales , no accessory muscle use Ext: no gross muscle atrophy, no edema, no contractures, LLE bruising Neuro: no focal neuro deficits Psych: Alert and oriented x 1 Altered mental status Generalized weakness Carotid stenosis Severe CHF with EF 30-35% Hypomagnesemia Hyponatremia Chronic conditions: CVA and 2013, atrial fibrillation not on anticoagulation, GERD, hypertension, severe aortic stenosis Based on my assessment of this patient, this patient meets a high complexity level of care. Patient has an acute diagnosis of altered mental status that poses a threat to life or bodily function. According to the , this is an acute change management lead the past 2 weeks. He is unable to do his ADLs and IADLs. He is AO x 1. Unable to tell me who the president is or what year it is. Prior to this, he was fully functioning. Given that he is off anticoagulation, concern is for CVA. Stroke workup will be pursued. MRI brain and MRA head and neck pending. Telemetry monitoring and advanced neurochecks. PT, OT and ST consulted. Hemoglobin A1c, lipid panel, TSH, folate acid, vitamin B12, ammonia within normal limits. Avoid sedative medication. Frequent redirection. Window side bed. Cardiology consulted with regard to the findings of Echocardiogram, recommends outpatient followup and no further workup. Plans for [place] on discharge. I have reviewed the following credit consultant notes: Cardiology note as above. I have reviewed the results of the following tests: I have ordered the following tests: MRI brain and MRA head and neck pending. I have discussed the care of this patient with the following independent historian: I have independently interpreted the following test below: I have discussed the management of this patient with the following physician: The case was discussed with Dr. Cedeño regarding the possibility of NPH. Patient with dementia, gait instability and urinary incontinence. Discussed the utility of LP with Dr. Cedeño. Mild ventriculomegaly on CT brain. We will wait for the results of the MRI prior to deciding on workup for NPH. Objective - Vital Signs Vital signs: Vital Signs Temp 97.8 F 05/14/23 16:00 Pulse 114 H 05/14/23 16:00 Resp 18 05/14/23 16:00 BP 144/89 05/14/23 16:00 Pulse Ox 97 05/14/23 16:00 FiO2 Intake & Output 05/13/23 05/14/23 05/14/23 18:59 06:59 18:59 Intake Total 2296 578 Balance 2296 578 Intake: IV 20 Invasive Line 1 10 Invasive Line 2 10 Oral [id number] Other: Voiding Method Toilet Toilet Toilet Urinal Urinal Urinal # Voids 4 3 - Labs CBC & Chem 7: 05/10/23 10:23 05/10/23 11:00 Labs: Abnormal Lab Results - Last 24 Hours (Table) 05/13/23 05/14/23 05/14/23 Range/Units 20:09 11:22 16:26 POC Glucose (mg/dL) 123 H 118 H 122 H (70-110) mg/dL
--- NOTE | 2023-05-14 19:07 | P.PN ---
Subjective Progress Note Date: 05/14/23 Patient initially seen by Dr. Fabiano Zhu. Please refer to his note for details. Patient is a 78-year-old male with history of altered mental status, generalized weakness, right ptosis, right eye for the past 3 weeks but not worsening. He has severe aortic stenosis. EEG is normal. Both knees needs to be redone. He has some pain in the knees. Some of the workup during his hospital visit consisted of: Sodium was 131, serum glucose is 104, calcium is 8.9. Ammonia is less than 9. TSH is 1.310. Lipid panel is a triglyceride of 78, cholesterol is 123, LDLs 51 and HDL is 56 Vitamin B12 was 1269 Folate is 25 CK level is [address] is 5.8. [address] of the brain is reported as no acute hemorrhage or mass effect. Moderate generalized degenerative and nonspecific white matter changes most typical of remote white matter and microvascular ischemia. I personally reviewed the CT and there is no acute or subacute ischemia. There is no intraparenchymal hemorrhage. Carotid Duplex was reported as approximate 50-69% stenosis involving the right internal carotid artery secondary due to hard soft office carotid plaquing. Nonvisualization of the left vertebral artery. No hemodynamic significant stenosis in the left carotid arterial system. Routine EEG is normal. Predominant study was in a drowsy state. There is no focal slowing, epileptiform discharges or seizure on the EEG. 2-D echo was reported as difficult the patient management. Left ventricular hypertrophy with reduced left ventricle stopped function. Severe aortic stenosis, calcific. Dilated left atrium. Objective - Vital Signs Vital signs: Vital Signs Temp 97.8 F 05/14/23 16:00 Pulse 114 H 05/14/23 16:00 Resp 18 05/14/23 16:00 BP 144/89 05/14/23 16:00 Pulse Ox 97 05/14/23 16:00 FiO2 Intake & Output 05/13/23 05/14/23 05/14/23 18:59 06:59 18:59 Intake Total 2296 578 Balance 2296 578 Intake: IV 20 Invasive Line 1 10 Invasive Line 2 10 Oral [id number] Other: Voiding Method Toilet Toilet Toilet Urinal Urinal Urinal # Voids 4 3 - Exam Patient is an elderly male, in no acute distress. He is laying comfortably in the bed. Speech and language functions are normal. Patient is fairly well oriented. He knows it is May and the year is 2022 and that he is in Hospital in [facility]. Could not remember Yeyo name. Patient could not remember name of the president but was able to recall it with prompt. Cranial nerves are all normal. Pupils are equal, round and reacting, face is symmetric and tongue protrudes the midline. Hearing appears normal for routine conversation. Muscle strength is normal in arms and legs. Sensory to touch is equal. No ataxia for uhedxa-cw-gwax testing bilaterally. - Labs CBC & Chem 7: 05/10/23 10:23 05/10/23 11:00 Labs: Abnormal Lab Results - Last 24 Hours (Table) 05/13/23 05/14/23 05/14/23 Range/Units 20:09 11:22 16:26 POC Glucose (mg/dL) 123 H 118 H 122 H (70-110) mg/dL Assessment and Plan Assessment: Acute ischemic stroke Generalized weakness, unsteady gait, memory loss, falls over the past 3 weeks: Unknown cause. Rule out stroke--symptoms improving but has ptsosis of right eye and per had it for 3 weeks. Rule out normal pressure hydrocephalus. Has severe aortic stenosis on 2D echo History of stroke with residual left lower hemiparesis Right ICA stenosis of 50-69% on carotid duplex. History of atrial fibrillation but anticoauglation was stopped about 3 weeks ago by because of recurrent falls. Plan: MRI brain completed. Reveals evidence of an acute stroke involving the right centrum semiovale adjacent to the ventricle in the parietal region. Official report pending. Patient's anticoagulation was put on hold by his because of fall risk. Patient resumed on Eliquis for secondary stroke prevention. Cardiology input appreciated. They canceled JYOTI. Routine EEG is normal. Predominant study was in a drowsy state. There is no focal slowing, epileptiform discharges or seizure on the EEG. Vascular surgery team on board for right ICA stenosis seen on the carotid duplex. Await MRA neck report. Discussed with vascular surgery. Patient is now off aspirin and resumed on Eliquis 5 mg twice a day. Also on Lip itor 40 mg daily at bedtime. For severe aortic stenosis, cardiology is consulted. Patient is on folic acid the 1 mg daily. PT OT and SPORTS ADMINISTRATOR are consulted. We'll defer the rest of the medical measure the primary team For DVT prophylaxis patient is on Lovenox.
[2023-05-14 20:09] LABS: Glucose,Whole Blood 165 mg/dL (70-110)
[2023-05-14] MEDS: ESCITALOPRAM 20 MG TAB PO SCH (21:22)
[2023-05-14] MEDS: ATORVASTATIN 40 MG TAB PO SCH (21:22)
[2023-05-14] MEDS: APIXABAN 5 MG TAB PO SCH (21:22)
--- NOTE | 2023-05-14 22:07 | MR ---
EXAMINATION TYPE: MR brain wo con DATE OF EXAM: 05/14/2023 5:40 PM COMPARISON: CT brain 05/14/2023. CLINICAL INDICATION:Male, 78 years old with history of Neuro deficit, acute, stroke suspected; Neuro deficit acute, stroke suspected. TECHNIQUE: Multi planar, multi sequence imaging was performed through the brain including: T1, T2, In version recovery, Diffusion weighted imaging, and gradient echo imaging. No gadolinium was given. FINDINGS: Multiple areas of restricted diffusion are seen within the close grouping within the right pillai rad iata. Remote right occipital/parietal region injury. There is cerebral atrophy changes with proportio nal dilation of ventricular system. The perez-white junctions, ventricular system, and cisterns appear unremarkable. Scattered foci of hi gh T2 signal intensity are seen within the periventricular white matter. Midline structures show no a bnormality. The susceptibility weighted images do not reveal any evidence for micro-hemorrhage. The bone marrow signal is within normal limits. Paranasal sinuses and mastoid air cells: No significant paranasal sinus disease. Visualized orbits: Orbital contents are intact. IMPRESSION: 1. Acute/subacute CVA involving the right pillai radiata. 2. Remote injury to the right parietal/occipital lobe. 3. Nonspecific white matter changes, likely secondary to small vessel ischemic disease.
--- NOTE | 2023-05-14 22:14 | MR ---
EXAMINATION TYPE: MR angio neck wo/w con DATE OF EXAM: 05/14/2023 6:02 PM CLINICAL INDICATION:Male, 78 years old with history of ?carotid stenosis right ICA; ?Carotid stenosis right ICA. COMPARISON: MRI 05/15/2013. TECHNIQUE: Multiplanar, multi-sequence imaging as well as wjsl-re-tviyuc and phase contrast imaging w as performed extracranial vasculature of the neck. 2-D and 3-D amdp-ao-xpozom imaging. 3-D reformatte d images and maximum intensity projection reformatted images were submitted for evaluation. IV Contrast: 9 cc Gadavist FINDINGS: RIGHT CAROTID SYSTEM: The common carotid artery is patent. The carotid bifurcations that she no evide nce for hemodynamically significant stenosis. The internal carotid arteries patent. LEFT CAROTID SYSTEM: The common carotid artery is patent. The carotid bifurcations that she no evide nce for hemodynamically significant stenosis. The internal carotid arteries patent. The origins of the great vessels and vertebral arteries appear unremarkable.. There is right dominanc e of the vertebral arteries. Moderate right pleural effusion. IMPRESSIONS: 1. No evidence of significant stenosis at the carotid bifurcations. The carotid and vertebral arterie s are patent. 2. No evidence aneurysm. 3. Moderate pleural effusion.
[2023-05-15 06:10] LABS: Glucose,Whole Blood 92 mg/dL (70-110)
[2023-05-15] MEDS: FOLIC ACID 1 MG TAB PO SCH (08:20)
[2023-05-15] MEDS: METOPROLOL SUCCINATE (ER) 50 MG TAB.ER.24H PO SCH (08:20)
[2023-05-15] MEDS: MULTIVITAMINS, THERA 1 EACH TAB PO SCH (08:20)
[2023-05-15] MEDS: THIAMINE 100 MG TAB PO SCH (08:20)
[2023-05-15] MEDS: APIXABAN 5 MG TAB PO SCH ×2 (08:20→20:14)
[2023-05-15 09:27] LABS: African American GFR (CKD) 84 (>60 ml/min/1.73 sqM); Anion Gap 11 mmol/L; Blood Urea Nitrogen 12 mg/dL (9-20); Calcium 9.2 mg/dL (8.4-10.2); Carbon Dioxide 24 mmol/L (22-30); Chloride 98 mmol/L (98-107); Glucose 101 mg/dL (74-99); Non-African American GFR(CKD) 73 (>60 ml/min/1.73 sqM); Potassium 4.1 mmol/L (3.5-5.1); Sodium 133 mmol/L (137-145)
[2023-05-15 11:35] LABS: Glucose,Whole Blood 108 mg/dL (70-110)
--- NOTE | 2023-05-15 12:29 | P.PN ---
Subjective Progress Note Date: 05/15/23 Patient seen and examined. No complaints or concerns. Underwent MRI and MRA Objective - Vital Signs Vital signs: Vital Signs Temp 97.6 F 05/15/23 11:40 Pulse 92 05/15/23 11:40 Resp 18 05/15/23 11:40 BP 121/76 05/15/23 11:40 Pulse Ox 95 05/15/23 11:40 FiO2 Intake & Output 05/14/23 05/15/23 05/15/23 18:59 06:59 18:59 Intake Total 678 240 Output Total 650 Balance 678 -650 240 Weight 86.183 kg Intake: Oral 678 240 Output: Urine 650 Other: Voiding Method Toilet Toilet Toilet Urinal Urinal Urinal - Exam General appearance: The patient is alert, oriented to self, appears in no acute distress. HET: Head is normocephalic and atraumatic. Pupils are equal and reactive. Neck: Supple. No audible carotid bruit. Heart: Irregular with murmur. Lungs: Equal expansion, normal respiratory effort. Abdomen: Soft, nontender, nondistended. Extremities: Normal skin color and turgor. Neurological: Patient alert, sleeping but easily arousable, alert to self. He is able to follow commands. Speech fluent, has facial symmetry and tongue protrudes midline. Good tone bilateral upper and lower extremities, with some generalized weakness bilateral upper and lower extremities. - Labs CBC & Chem 7: 05/10/23 10:23 05/15/23 09:02 Labs: Abnormal Lab Results - Last 24 Hours (Table) 05/14/23 05/14/23 05/15/23 Range/Units 16:26 20:00 09:02 Sodium 133 L (137-145) mmol/L Glucose 101 H (74-99) mg/dL POC Glucose (mg/dL) 122 H 165 H (70-110) mg/dL Assessment and Plan Assessment: 1. Altered mental status changes 2. Possibly mild carotid stenosis, does not appear to be hemodynamically significant 3. Generalized weakness 4. History of atrial fibrillation 5. History of coronary artery disease, valve disease, EF 30-35% 6. Previous CVA with some residual left-sided weakness 7. Severe aortic stenosis Plan: Patient underwent MRA of the neck showing no evidence of appreciable carotid stenosis at the bifurcation. Upon repeat evaluation of the ultrasound, the peak systolic velocity is maintained at 73.6 cm/s however the ratio is slightly elevated therefore read is interpreted as elevated 50-69% however there is no systolic velocity elevation to substantiate this, this in line with the negative MRA would doubt severe hemodynamically significant carotid stenosis on the right. He did however have a positive MRI finding in the brain. Given his clinical status and overall comorbidities of his severe aortic stenosis, would lean more towards medical therapies versus aggressive surgical intervention however further discussions and goals of care need to be discussed. This can be performed as an outpatient. We will perform a short-term repeat image in the office to reconfirm findings. This was discussed with neurology.
--- NOTE | 2023-05-15 13:37 | P.PN ---
Subjective Progress Note Date: 05/15/23 HISTORY OF PRESENT ILLNESS: The patient is a 78-year-old gentleman with a past medical history significant for recent diagnosis of atrial fibrillation as well as hypertension and dy slipidemia who was brought by his to the emergency department with a change in mental status. The patient somewhat poor historian. No specific complaints of any chest pain or chest discomfort or shortness of breath or lower extremity edema. There was a concern about possible stroke giving the change in mental status and the patient subsequently was seen by the neurology service and further workup was performed including carotid duplex study which showed intermediate disease bilaterally and the patient subsequently seen by the vascular surgery service. Beside that he underwent an echocardiogram which revealed normal biventricular dimension and systolic function with evidence of severe aortic stenosis. The patient is not aware of any prior cardiac history of CAD or or congestive heart failure but he is aware of present to the diagnosis of atrial fibrillation subsequently he was started on oral anticoagulation and stop the medication. Medication was stopped by his because she is concerned about possible bleeding. The patient currently doesn't look in any overt congestive heart failure. His pressure has been elevated and seems to be consistent with at least a stage II hypertension. He is currently on metoprolol and I am going to a small dose of amlodipine. At this point I don't see that the patient is in overt congestive heart failure. He is laying flat in bed. He is not hypoxic. He has no lower extremities edema noted on examination. Aortic stenosis need to be addressed as an outpatient. Josefina 05/13/2023 The patient was seen and evaluated this morning. He is asymptomatic interval of chest pain or chest discomfort or shortness of breath. He is euvolemic on examination. The neurology workup continues to be in progress and the patient is in process of having an MRI later on today. The pressure has been better after lisinopril was added to the current medical regimen including metoprolol. From the cardiac standpoint of view, we'll continue the current medical regimen. 05/14/2023 Patient examined this morning at the bedside. Patient remains somewhat confused this morning. He denies chest pain or pressure. He denies shortness of breath. Telemetry reveals atrial fibrillation with controlled ventricular rate. Patient underwent CT of the brain which was negative for acute process. He is scheduled for MRI of the brain today. 05/15/2023 Patient examined this morning at the bedside. Patient denies chest pain or pres sure. Denies SOB. MRI of the brain reveals acute/subacute CVA involving the right pillai radiata and remote injury to the right parietal/occipital lobe. MRA of the neck revealed no evidence of significant stenosis at the carotid bifurcations. Carotid and vertebral arteries are patent. No evidence of aneurysm. Vital signs are stable. PHYSICAL EXAM: VITAL SIGNS: Reviewed. GENERAL: Well-developed in no acute distress. NECK: Supple. No JVD or thyromegaly LUNGS: Respirations even and unlabored. Lungs essentially clear to auscultation bilaterally. HEART: Irregular rate and rhythm. S1 and S2 heard. Systolic murmur noted. EXTREMITIES: Normal range of motion. No clubbing or cyanosis. Peripheral pulses intact. No lower extremity edema ASSESSMENT: Altered mental status Acute/subacute CVA per MRI Persistent atrial fibrillation with controlled ventricular rates Valvular heart disease including severe aortic stenosis Cardiomyopathy, ejection fraction 30-35%, unclear if ischemic or nonischemic Hypertension Carotid arthrosclerosis PLAN: Continue current cardiac medications Patient was originally scheduled for outpatient JYOTI and heart catheterization today as part of AVR workup. This will be rescheduled. Neurology following. Further recommendations pending patient course Nurse practitioner note has been reviewed by physician. Signing provider agrees with the documented findings, assessment, and plan of care. Objective - Vital Signs Vital signs: Vital Signs Temp 97.6 F 05/15/23 11:40 Pulse 92 05/15/23 11:40 Resp 18 05/15/23 11:40 BP 121/76 05/15/23 11:40 Pulse Ox 96 05/15/23 12:50 FiO2 Intake & Output 05/14/23 05/15/23 05/15/23 18:59 06:59 18:59 Intake Total 678 240 Output Total 650 Balance 678 -650 240 Weight 86.183 kg Intake: Oral 678 240 Output: Urine 650 Other: Voiding Method Toilet Toilet Toilet Urinal Urinal Urinal - Labs CBC & Chem 7: 05/10/23 10:23 05/15/23 09:02 Labs: Abnormal Lab Results - Last 24 Hours (Table) 05/14/23 05/14/23 05/15/23 Range/Units 16:26 20:00 09:02 Sodium 133 L (137-145) mmol/L Glucose 101 H (74-99) mg/dL POC Glucose (mg/dL) 122 H 165 H (70-110) mg/dL
--- NOTE | 2023-05-15 16:01 | P.PN ---
Subjective Progress Note Date: 05/15/23 No new complaints. Pending insurance auth prior to discharge to rehab. Gen: awake, alert HEENT: normocephalic, atraumatic, good hearing acuity, moist mucous membranes Resp: good air exchange, breathing comfortably with no accessory muscle use CVS: good distal perfusion x 4, GI: soft, NTTP, ND : no SPT, no CVAT, dotson catheter not present MSK: no pitting edema, no clubbing Neuro: non-focal, moving all extremities Psych: cooperative, euthymic mood Hospital Course: Patient is a 78-year-old male with PMH of CVA and 2012, atrial fibrillation not on anticoagulation, GERD, hypertension, severe aortic stenosis presented to the ED for generalized weakness. In the ED, BP was 145/109 with heart rate of 100. CBC was benign. Coagulation panel showed INR 1.2. CMP showed sodium of 131, glucose 104, magnesium of 1.3 and alkaline phosphatase 169. Troponins less than 0.012. Urinalysis showed trace protein. CT head showed small vessel ischemic changes. EKG showed atrial fibrillation. Chest x-ray showed small bilateral pleural effusions. 05/11 Patient was seen and examined. No acute events overnight. Patient is pleasantly confused. He appears sleepy. at bedside. B12 1269. Folate and TSH within normal limits. Carotid doppler shows 50-69% stenosis of the right internal carotid. Echo shows severe with EF 30-35% and concentric LVH. Neurology recommends CVA workup along with EEG. Vascular surgery recommends MRA head and neck. A1c 5.7. Lipid panel shows LDL 51. 05/12 Patient was seen and examined. Clinical condition unchanged. EEG negative. Cardiology was consulted with regards to echocardiogram. Cardiology recommends no further workup and outpatient follow-up. MRI brain and MRA head and neck pending. 05/13 Patient was seen and examined. Clinical condition unchanged. MRI brain and MRA head and neck pending. 05/14 Patient was seen and examined. Clinical condition unchanged. MRI brain and MRA head and neck pending. Assessment: Altered mental status Generalized weakness Carotid stenosis Severe CHF with EF 30-35% Hypomagnesemia Hyponatremia Chronic conditions: CVA and 2013, atrial fibrillation not on anticoagulation, GERD, hypertension, severe aortic stenosis Plan: Today, patient is afebrile, 121/76, heart rate 92, 95% on room air Basic metabolic panel shows sodium 133 MRI of the brain shows acute/subacute stroke in the pillai radiata Cardiology note reviewed, JYOTI and left heart cath were deferred at this time which were previously ordered for AVR workup Discussed with case management, there discussing insurance authorization prior to rehab Continue Apixiban Continue Lipitor Continue metoprolol Follow PT/OT recommendation Objective - Vital Signs Vital signs: Vital Signs Temp 97.6 F 05/15/23 11:40 Pulse 92 05/15/23 11:40 Resp 18 05/15/23 11:40 BP 121/76 05/15/23 11:40 Pulse Ox 96 05/15/23 12:50 FiO2 Intake & Output 05/14/23 05/15/23 05/15/23 18:59 06:59 18:59 Intake Total 678 358 Output Total 650 Balance 678 -650 358 Weight 86.183 kg Intake: Oral 678 358 Output: Urine 650 Other: Voiding Method Toilet Toilet Toilet Urinal Urinal Urinal - Labs CBC & Chem 7: 05/10/23 10:23 05/15/23 09:02 Labs: Abnormal Lab Results - Last 24 Hours (Table) 05/14/23 05/14/23 05/15/23 Range/Units 16:26 20:00 09:02 Sodium 133 L (137-145) mmol/L Glucose 101 H (74-99) mg/dL POC Glucose (mg/dL) 122 H 165 H (70-110) mg/dL
[2023-05-15 17:22] LABS: Glucose,Whole Blood 105 mg/dL (70-110)
--- NOTE | 2023-05-15 18:02 | P.PN ---
Subjective Progress Note Date: 05/15/23 05/15/2023: Looks reasonably good. Patient was seen for follow-up. Patient is sitting comfortably in the recliner. Offers no complaints. His knee is doing better. 05/14/2023: Patient initially seen by Dr. Fabiano Zhu. Please refer to his note for details. Patient is a 78-year-old male with history of altered mental status, generalized weakness, right ptosis, right eye for the past 3 weeks but not worsening. He has severe aortic stenosis. EEG is normal. Both knees needs to be redone. He has some pain in the knees. Some of the workup during his hospital visit consisted of: Sodium was 131, serum glucose is 104, calcium is 8.9. Ammonia is less than 9. TSH is 1.310. Lipid panel is a triglyceride of 78, cholesterol is 123, LDLs 51 and HDL is 56 Vitamin B12 was 1269 Folate is 25 CK level is 33 [address] is 5.[address] of the brain is reported as no acute hemorrhage or mass effect. Moderate generalized degenerative and nonspecific white matter changes most typical of remote white matter and microvascular ischemia. I personally reviewed the CT and there is no acute or subacute ischemia. There is no intraparenchymal hemorrhage. Carotid Duplex was reported as approximate 50-69% stenosis involving the right internal carotid artery secondary due to hard soft office carotid plaquing. Nonvisualization of the left vertebral artery. No hemodynamic significant stenosis in the left carotid arterial system. Routine EEG is normal. Predominant study was in a drowsy state. There is no focal slowing, epileptiform discharges or seizure on the EEG. 2-D echo was reported as difficult the patient management. Left ventricular hypertrophy with reduced left ventricle stopped function. Severe aortic stenosis, calcific. Dilated left atrium. Objective - Vital Signs Vital signs: Vital Signs Temp 98.0 F 05/15/23 16:00 Pulse 72 05/15/23 16:00 Resp 18 05/15/23 16:00 BP 144/71 05/15/23 16:00 Pulse Ox 99 05/15/23 16:00 FiO2 Intake & Output 05/14/23 05/15/23 05/15/23 18:59 06:59 18:59 Intake Total 678 358 Output Total 650 Balance 678 -650 358 Weight 86.183 kg Intake: Oral 678 358 Output: Urine 650 Other: Voiding Method Toilet Toilet Toilet Urinal Urinal Urinal - Exam Patient is an elderly male, in no acute distress. He is laying comf ortably in the bed. Speech and language functions are normal. Patient is fairly well oriented. He knows it is May and the year is 2022 and that he is in Hospital in [facility]. Could not remember Aneeshlaren name. Patient could not remember name of the president but was able to recall it with prompt. Cranial nerves are all normal. Pupils are equal, round and reacting, face is symmetric and tongue protrudes the midline. Hearing appears normal for routine conversation. Muscle strength is normal in arms and legs. Sensory to touch is equal. No ataxia for [id number] testing bilaterally. - Labs CBC & Chem 7: 05/10/23:05/15/23 09:02 Labs: Abnormal Lab Results - Last 24 Hours (Table) 05/14/23 05/15/23 Range/Units 20:00 09:02 Sodium 133 L (137-145) mmol/L Glucose 101 H (74-99) mg/dL POC Glucose (mg/dL) 165 H (70-110) mg/dL Assessment and Plan Assessment: Acute ischemic stroke Generalized weakness, unsteady gait, memory loss, falls over the past 3 weeks: Unknown cause. Rule out stroke--symptoms improving but has ptsosis of right eye and per had it for 3 weeks. Rule out normal pressure hydrocephalus. Has severe aortic stenosis on 2D echo History of stroke with residual left lower hemiparesis Right ICA stenosis of 50-69% on carotid duplex. History of atrial fibrillation but anticoauglation was stopped about 3 weeks ago by because of recurrent falls. Plan: MRI brain revealed acute/subacute CVA involving the right pillai radiata. Remote injury to the right parietal/occipital lobe. Remote injury to the right parietal/occipital lobe. Nonspecific white matter changes, likely secondary to small vessel ischemic disease. I personally reviewed MRI, agree with the findings. MRA of the neck revealed no evidence of significant stenosis at the carotid bifurcations. The carotid and vertebral arteries are patent. No evidence aneurysm. Moderate pleural effusion. Will defer to IM regarding pleural effusion. Patient's anticoagulation was put on hold by his because of fall risk. Patient resumed on Eliquis for secondary stroke prevention. Cardiology input appreciated. They canceled JYOTI. Routine EEG is normal. Predominant study was in a drowsy state. There is no focal slowing, epileptiform discharges or seizure on the EEG. Vascular surgery team on board for right ICA stenosis seen on the carotid duplex. Discussed with vascular surgery. Patient does not need any intervention based upon MRA report. Agree. Patient is now off aspirin and resumed on Eliquis 5 mg twice a day. Also on Lipitor 40 mg daily at bedtime. For severe aortic stenosis, cardiology is on board. Defer to cardiology. Patient is on folic acid the 1 mg daily. PT OT and RN ER are consulted. We'll defer the rest of the medical measure the primary team For DVT prophylaxis patient is on Eliquis. Neurologically clear for discharge. Discussed with patient's and patient's granddaughter in detail.
[2023-05-15 20:11] LABS: Glucose,Whole Blood 144 mg/dL (70-110)
[2023-05-15] MEDS: ESCITALOPRAM 20 MG TAB PO SCH (20:14)
[2023-05-15] MEDS: ATORVASTATIN 40 MG TAB PO SCH (20:14)
[2023-05-16 06:26] LABS: Glucose,Whole Blood 103 mg/dL (70-110)
[2023-05-16 08:24] VITALS: BP 107/62; PULSE 80; RESP 16; TEMP 96.9
[2023-05-16] MEDS: APIXABAN 5 MG TAB PO SCH (09:28)
[2023-05-16] MEDS: METOPROLOL SUCCINATE (ER) 50 MG TAB.ER.24H PO SCH (09:28)
[2023-05-16] MEDS: FOLIC ACID 1 MG TAB PO SCH (09:28)
[2023-05-16] MEDS: MULTIVITAMINS, THERA 1 EACH TAB PO SCH (09:28)
[2023-05-16] MEDS: THIAMINE 100 MG TAB PO SCH (09:28)
[2023-05-16 11:39] LABS: Glucose,Whole Blood 114 mg/dL (70-110)
--- NOTE | 2023-05-16 12:42 | P.DS ---
Providers Date of admission: 05/10/23 14:16 Expected date of discharge: 05/16/23 Attending physician: Carloz Gee MD Consults: 05/10/23 17:25 Consult Physician Routine Consulting Provider: Fabiano Zhu Consult Reason/Comments: AMS Do you want consulting provider notified?: Yes 05/11/23 17:05 Consult Physician Routine Consulting Provider: Donald Gandhi Consult Reason/Comments: CHF and severe Do you want consulting provider notified?: Yes Primary care physician: Fernie Currie Hospital Course: Assessment: Acute/Subacute Stroke in the Quintana Radiata Generalized weakness Carotid stenosis Severe CHF with EF 30-35% Hypomagnesemia Hyponatremia Chronic conditions: CVA and 2013, atrial fibrillation not on anticoagulation, GERD, hypertension, severe aortic stenosis Hospital Course: Patient is a 78-year-old male with PMH of CVA and 2012, atrial fibrillation not on anticoagulation, GERD, hypertension, severe aortic stenosis presented to the ED for generalized weakness. In the ED, BP was 145/109 with heart rate of 100. CBC was benign. Coagulation panel showed INR 1.2. CMP showed sodium of 131, glucose 104, magnesium of 1.3 and alkaline phosphatase 169. Troponins less than 0.012. Urinalysis showed trace protein. CT head showed small vessel ischemic changes. EKG showed atrial fibrillation. Chest x-ray showed small bilateral pleural effusions. 05/11 Patient was seen and examined. No acute events overnight. Patient is pleasantly confused. He appears sleepy. at bedside. B12 1269. Folate and TSH within normal limits. Carotid doppler shows 50-69% stenosis of the right internal carotid. Echo shows severe with EF 30-35% and concentric LVH. Neurology recommends CVA workup along with EEG. Vascular surgery recommends MRA head and neck. A1c 5.7. Lipid panel shows LDL 51. 05/12 Patient was seen and examined. Clinical condition unchanged. EEG negative. Cardiology was consulted with regards to echocardiogram. Cardiology recommends no further workup and outpatient follow-up. MRI brain and MRA head and neck pending. 05/13 Patient was seen and examined. Clinical condition unchanged. MRI brain and MRA head and neck pending. 05/14 Patient was seen and examined. Clinical condition unchanged. MRI brain and MRA head and neck pending. 05/15-05/16: Patient doing well and in stable condition, MRI of the brain returned significant for new acute/subacute stroke in the quintana radiata. MRA reviewed by vascular surgery who evaluated the patient and felt carotid stenosis should be treated medically. He was cleared for discharge pending insurance authorization which was obtained on 05/16, and he was d/c'd to [facility] for [facility]. Discussed final medication recommendations with Neurology and pt will be d/c'd on Eliquis and ASA from stroke ppx/tx. I spent 40 minutes coordinating this discharge on 05/16 Gen: awake, alert HEENT: normocephalic, atraumatic, good hearing acuity, moist mucous membranes Resp: good air exchange, breathing comfortably with no accessory muscle use CVS: good distal perfusion x 4, GI: soft, NTTP, ND : no SPT, no CVAT, dotson catheter not present MSK: no pitting edema, no clubbing Neuro: non-focal, moving all extremities Psych: cooperative, euthymic mood Patient Condition at Discharge: Good Plan - Discharge Summary Discharge Rx Participant: No New Discharge Prescriptions: New Folic Acid 1 mg PO DAILY tab Apixaban [Eliquis] 5 mg PO BID #60 tab Multivitamins, Thera [Multivitamin (formulary)] 1 each PO DAILY tab Thiamine [Vitamin B-1] 100 mg PO DAILY tab lisinopriL [Zestril] 2.5 mg PO DAILY #30 tab Continue Omeprazole [PriLOSEC] 40 mg PO DAILY PRN PRN Reason: Gi Upset Metoprolol Succinate (ER) [Toprol XL] 50 mg PO DAILY Escitalopram [Lexapro] 20 mg PO HS Changed Rosuvastatin Calcium 20 mg PO HS #0 Aspirin EC [Ecotrin] 81 mg PO DAILY #0 Discontinued Meloxicam [Mobic] 15 mg PO DAILY Discharge Medication List Escitalopram [Lexapro] 20 mg PO HS 05/10/23 [History] Metoprolol Succinate (ER) [Toprol XL] 50 mg PO DAILY 05/10/23 [History] Omeprazole [PriLOSEC] 40 mg PO DAILY PRN 05/10/23 [History] Apixaban [Eliquis] 5 mg PO BID #60 tab 05/16/23 [Rx] Aspirin EC [Ecotrin] 81 mg PO DAILY #0 05/16/23 [Rx] Folic Acid 1 mg PO DAILY tab 05/16/23 [Rx] Multivitamins, Thera [Multivitamin (formulary)] 1 each PO DAILY tab 05/16/23 [Rx] Rosuvastatin Calcium 20 mg PO HS #0 05/16/23 [Rx] Thiamine [Vitamin B-1] 100 mg PO DAILY tab 05/16/23 [Rx] lisinopriL [Zestril] 2.5 mg PO DAILY #30 tab 05/16/23 [Rx] Follow up Appointment(s)/Referral(s): Fenrie Currie MD [Primary Care Provider] - 1-2 days
--- NOTE | 2023-05-16 14:03 | P.PN ---
Subjective Progress Note Date: 05/16/23 HISTORY OF PRESENT ILLNESS: The patient is a 78-year-old gentleman with a past medical history significant for recent diagnosis of atrial fibrillation as well as hypertension and dy slipidemia who was brought by his to the emergency department with a change in mental status. The patient somewhat poor historian. No specific complaints of any chest pain or chest discomfort or shortness of breath or lower extremity edema. There was a concern about possible stroke giving the change in mental status and the patient subsequently was seen by the neurology service and further workup was performed including carotid duplex study which showed intermediate disease bilaterally and the patient subsequently seen by the vascular surgery service. Beside that he underwent an echocardiogram which revealed normal biventricular dimension and systolic function with evidence of severe aortic stenosis. The patient is not aware of any prior cardiac history of CAD or or congestive heart failure but he is aware of present to the diagnosis of atrial fibrillation subsequently he was started on oral anticoagulation and stop the medication. Medication was stopped by his because she is concerned about possible bleeding. The patient currently doesn't look in any overt congestive heart failure. His pressure has been elevated and seems to be consistent with at least a stage II hypertension. He is currently on metoprolol and I am going to a small dose of amlodipine. At this point I don't see that the patient is in overt congestive heart failure. He is laying flat in bed. He is not hypoxic. He has no lower extremities edema noted on examination. Aortic stenosis need to be addressed as an outpatient. Josefina 05/13/2023 The patient was seen and evaluated this morning. He is asymptomatic interval of chest pain or chest discomfort or shortness of breath. He is euvolemic on examination. The neurology workup continues to be in progress and the patient is in process of having an MRI later on today. The pressure has been better after lisinopril was added to the current medical regimen including metoprolol. From the cardiac standpoint of view, we'll continue the current medical regimen. 05/14/2023 Patient examined this morning at the bedside. Patient remains somewhat confused this morning. He denies chest pain or pressure. He denies shortness of breath. Telemetry reveals atrial fibrillation with controlled ventricular rate. Patient underwent CT of the brain which was negative for acute process. He is scheduled for MRI of the brain today. 05/15/2023 Patient examined this morning at the bedside. Patient denies chest pain or pres sure. Denies SOB. MRI of the brain reveals acute/subacute CVA involving the right pillai radiata and remote injury to the right parietal/occipital lobe. MRA of the neck revealed no evidence of significant stenosis at the carotid bifurcations. Carotid and vertebral arteries are patent. No evidence of aneurysm. Vital signs are stable. 05/16/2023 Patient examined this afternoon. He is sitting up in the chair. He denies chest pain or pressure. He denies shortness of breath. Vital signs are stable. PHYSICAL EXAM: VITAL SIGNS: Reviewed. GENERAL: Well-developed in no acute distress. NECK: Supple. No JVD or thyromegaly LUNGS: Respirations even and unlabored. Lungs essentially clear to auscultation bilaterally. HEART: Irregular rate and rhythm. S1 and S2 heard. Systolic murmur noted. EXTREMITIES: Normal range of motion. No clubbing or cyanosis. Peripheral puls es intact. No lower extremity edema ASSESSMENT: Altered mental status Acute/subacute CVA per MRI Persistent atrial fibrillation with controlled ventricular rates Valvular heart disease including severe aortic stenosis Cardiomyopathy, ejection fraction 30-35%, unclear if ischemic or nonischemic Hypertension Carotid arthrosclerosis PLAN: Continue current cardiac medications Patient was originally scheduled for outpatient JYOTI and heart catheterization today as part of AVR workup. This will be rescheduled. Patient is stable for discharge home today from a cardiac standpoint He is to follow up post discharge with Dr. Guzman We will sign off. Please reconsult if needed. Nurse practitioner note has been reviewed by physician. Signing provider agrees with the documented findings, assessment, and plan of care. Objective - Vital Signs Vital signs: Vital Signs Temp 96.9 F L 05/16/23 08:00 Pulse 80 05/16/23 08:00 Resp 16 05/16/23 08:00 BP 107/62 05/16/23 08:00 Pulse Ox 93 L 05/16/23 08:00 FiO2 Intake & Output 05/15/23 05/16/23 05/16/23 18:59 06:59 18:59 Intake Total 595 475 Output Total 500 Balance 595 -500 475 Weight 86.183 kg Intake: Oral 595 475 Output: Urine 500 Other: Voiding Method Toilet Toilet Urinal Urinal # Voids 2 # Bowel Movements 1 - Labs CBC & Chem 7: 05/10/23 10:23 05/15/23 09:02 Labs: Abnormal Lab Results - Last 24 Hours (Table) 05/15/23 05/16/23 Range/Units 20:09 11:36 POC Glucose (mg/dL) 144 H 114 H (70-110) mg/dL
--- NOTE | 2023-05-17 11:00 | CDI ---
Documentation Clarification Form Date: 05/17/23 From: Smiley Lujan Admit Date: 05/10/2023 02:16:00 PM Patient Name: Juvenal Harmon Visit Number: [id number] Discharge Date: 05/16/2023 02:13:00 PM ATTENTION: The Clinical Documentation Specialists (CDI) and [facility] Coding Staff appreciate your assistance in clarifying documentation. Please respond to the clarification below the line at the bottom and electronically sign. The CDI & [facility] Coding staff will review the response and follow-up if needed. Please note: Queries are made part of the Legal Health Record. If you have any questions, please contact the author of this message via ITS. Dr. Ivana Shaffer, Your patient has the documented diagnosis of unspecified CHF in 05/[address] Gee. Additional information regarding the type & acuity of CHF is requested. History/Risk Factors: Clinical Indicators: Patient is a 78-year-old male with PMH ofCVAand 2012,atrial fibrillationnot onanticoagulation,GERD,hypertension, severeaortic stenosispresents to the ED forgeneralized weakness. Echocardiogram Difficult patient management LVH with reduced LVsystolic function. VS/Pulse OX: T 97.6, P 100, R 18, BP 145/109, O2 Sat 99 BNP: 77564 Echocardiogram Results: Moderately increased septal wall thickness.Mildly decreased left ventricular ejection fraction. Concentric LVH. Left ventricular ejection fraction is estimated at 30-35 %. 05/10 Chest X Ray: Smallbilateral pleural effusions Treatment: Toprol; XL, In your professional opinion, can you please clarify the [acuity and type] of CHF if known? [ ] Acute Systolic Heart Failure (reduced EF) [ ] Chronic Systolic Heart Failure (reduced EF) [ xx ] Acute on Chronic Systolic Heart Failure (reduced EF) [ ] Other, please specify [ ] Unable to determine MTDD
== END 2023-05-16 14:13 | DRG 64 ==
LOC: EC 10:01 → 5NMEDONC 14:16 → 4SSUR 19:32 → 3SCARD 20:11
PROVIDERS: ADMIT Family Medicine; ATTEND Family Medicine
DX: I63.9 Cerebral infarction, unspecified (principal); I50.23 Acute on chronic systolic (congestive) heart failure; I48.19 Other persistent atrial fibrillation; I42.9 Cardiomyopathy, unspecified; E87.1 Hypo-osmolality and hyponatremia; F03.92 Unspecified dementia, unspecified severity, with psychotic disturbance; I11.0 Hypertensive heart disease with heart failure; G93.89 Other specified disorders of brain; I69.344 Monoplegia of lower limb following cerebral infarction affecting left non-dominant side; M35.3 Polymyalgia rheumatica; Z28.310 Unvaccinated for COVID-19; I35.0 Nonrheumatic aortic (valve) stenosis; I25.10 Atherosclerotic heart disease of native coronary artery without angina pectoris; I65.21 Occlusion and stenosis of right carotid artery; E83.42 Hypomagnesemia; K21.9 Gastro-esophageal reflux disease without esophagitis; R32 Unspecified urinary incontinence; H02.401 Unspecified ptosis of right eyelid; E78.5 Hyperlipidemia, unspecified; R29.6 Repeated falls; R47.81 Slurred speech; R26.81 Unsteadiness on feet; R26.89 Other abnormalities of gait and mobility; Z79.82 Long term (current) use of aspirin; Z79.1 Long term (current) use of non-steroidal anti-inflammatories (NSAID); Z79.899 Other long term (current) drug therapy; Z85.038 Personal history of other malignant neoplasm of large intestine; Z91.041 Radiographic dye allergy status
CPT/HCPCS: 36415; 70450; 70549; 70551; 71046; 80048; 80053; 80061; 81003; 82140; 82550; 82607; 82746; 83036; 83605; 83735; 83880; 84443; 84484; 85025; 85610; 85730; 93005; 93306; 93880; 94760; 95816; 96361; 96365; 96366; 99285

== ENCOUNTER → 2023-06-20 | Outpatient (CLI) | payer MEDICARE ==
[2023-06-21 02:17] LABS: Basophils # (A) 0.03 X 10*3/uL (0.00-0.10); Basophils % (A) 0.5 %; Eosinophils # (A) 0.04 X 10*3/uL (0.04-0.35); Eosinophils % (A) 0.7 %; HCT 42.8 % (39.6-50.0); HGB 14.1 d/dL (13.0-17.0); Lymphocytes # (A) 1.34 X 10*3/uL (0.90-5.00); Lymphocytes % (A) 22.2 %; MCH 31.8 pg (27.0-32.0); MCHC 32.9 d/dL (32.0-37.0); MCV 96.6 FL (80.0-97.0); Mean Platelet Volume 10.5 FL (9.5-12.2); Monocytes # (A) 1.06 X 10*3/uL (0.20-1.00); Monocytes % (A) 17.6 %; NRBC Per 100 WBC 0 X 10*3/uL (0.00-0.01); Platelet Count 248 X 10*3/uL (140-440); RBC 4.43 X 10*6/uL (4.40-5.60); RDW 13.9 % (11.5-14.5); WBC 6.03 X 10*3/uL (4.50-10.00)
[2023-06-21 02:50] LABS: ALT 21 U/L (10-49); AST 28 U/L (14-35); Albumin 4.2 d/dL (3.8-4.9); Albumin/Globulin Ratio 1.45 Ratio (1.60-3.17); Alkaline Phosphatase 180 U/L (41-126); BUN/Creat Ratio 8.82 Ratio (12.00-20.00); Blood Urea Nitrogen 9.7 mg/dL (9.0-27.0); Calcium 9.6 mg/dL (8.7-10.3); Carbon Dioxide 22.2 mmol/L (21.6-31.8); Chloride 99 mmol/L (96-109); Chol/HDL Ratio 2.13 Ratio; Globulin 2.9 d/dL (1.6-3.3); Glucose 109 mg/dL (70-110); LDL Cholesterol,Calculated 58.4 mg/dL (0.0-131.0); Potassium 4.6 mmol/L (3.5-5.5); Sodium 134 mmol/L (135-145); Total Bilirubin 0.9 mg/dL (0.3-1.2); Total Protein 7.1 d/dL (6.2-8.2); VLDL Calculation 13.76 mg/dL (5.00-40.00)
== END | disposition home or self-care (01) ==
LOC: LABWHC1 14:47
PROVIDERS: ATTEND Family Medicine
DX: I12.9 Hypertensive chronic kidney disease with stage 1 through stage 4 chronic kidney disease, or unspecified chronic kidney disease (principal); N18.2 Chronic kidney disease, stage 2 (mild); E78.5 Hyperlipidemia, unspecified
CPT/HCPCS: 36415; 80053; 80061; 85025

== ENCOUNTER → 2024-05-07 | Outpatient (CLI) | payer MEDICARE ==
[2024-05-07 18:31] LABS: HCT 41.8 % (39.6-50.0); HGB 13.8 g/dL (13.0-17.0); MCH 31.7 pg (27.0-32.0); MCV 95.9 FL (80.0-97.0); Mean Platelet Volume 10.1 FL (9.5-12.2); NRBC Per 100 WBC 0 X 10*3/uL (0.00-0.01); Platelet Count 241 X 10*3/uL (140-440); RBC 4.36 X 10*6/uL (4.40-5.60); RDW 13.8 % (11.5-14.5); WBC 5.94 X 10*3/uL (4.50-10.00)
[2024-05-07 19:54] LABS: Blood Urea Nitrogen 9.6 mg/dL (9.0-27.0); Carbon Dioxide 22.3 mmol/L (21.6-31.8); Chloride 96 mmol/L (96-109); Potassium 4.4 mmol/L (3.5-5.5); Sodium 133 mmol/L (135-145)
== END | disposition home or self-care (01) ==
LOC: LABPAT 14:06
PROVIDERS: ATTEND Internal Medicine Cardiovascular Disease
DX: Z01.810 Encounter for preprocedural cardiovascular examination (principal)
CPT/HCPCS: 36415; 80051; 82565; 84520; 85027

== ENCOUNTER 2024-05-14 07:27 | Day surgery (SDC) | payer MEDICARE ==
[~2024-05-14 07:27] MED LIST: ALPRAZolam 0.25 MG TAB PO PRN; ALPRAZolam 0.5 MG TAB PO PRN; ASPIRIN 325 MG TAB PO STA; ATORVASTATIN 80 MG TAB PO STA; HEPARIN SODIUM,PORCINE (1 ML) 2,500 UNIT in SODIUM CHLORIDE 0.9% 250 ML IRRIGATION PRN; HEPARIN SODIUM,PORCINE 10,000 UNIT in SODIUM CHLORIDE 0.9% 1,000 ML IRRIGATION PRN; NITROGLYCERIN SL TABS 0.4 MG TAB SUBLINGUAL PRN; SODIUM CHLORIDE 0.9% 1,000 ML in EMPTY BAG 1 BAG IV SCH
[2024-05-14] MEDS: SODIUM CHLORIDE 0.9% 1,000 ML IV ONE (07:55)
[2024-05-14 08:07] VITALS: RESP 16; TEMP 98.4
[2024-05-14] MEDS ORDERED: VERAPAMIL 2.5 MG/ML 2 ML AMP ONE (08:35)
[2024-05-14] MEDS ORDERED: LIDOCAINE 1% INJ 10MG/ML (20 ML MDV) ONE (08:35)
[2024-05-14] MEDS ORDERED: HEPARIN SODIUM 1,000 UN/ML (10ML VL) ONE (08:35)
[2024-05-14] MEDS ORDERED: fentaNYL (PF) 50 MCG/ML 2 ML AMP ONE (08:37)
[2024-05-14] MEDS: IV FLUID CONTINUATION 850 ML IV ONE (08:57)
[2024-05-14] MEDS: IV FLUID CONTINUATION 900 ML IV ONE (08:57)
[2024-05-14] MEDS: BENZOCAINE SPRAY 1 CAN MUCOUS MEM ONE ×2 (09:09)
[2024-05-14] MEDS: MIDAZOLAM 2 MG/2 ML VIAL IVP ONE (09:14)
[2024-05-14] MEDS: fentaNYL (PF) 50 MCG/ML 2 ML AMP IVP ONE (09:14)
[2024-05-14] MEDS: LIDOCAINE 1% INJ 10MG/ML (20 ML MDV) SQ ONE (09:33)
[2024-05-14] MEDS: VERAPAMIL SYRINGE (5 MG/10 ML) INTRAARTER ONE (09:36)
[2024-05-14] MEDS: HEPARIN SODIUM 1,000 UN/ML (10ML VL) IV ONE (09:40)
[2024-05-14] MEDS: IOPAMIDOL-370 100ML BTL INJ ONE (09:55)
[2024-05-14] MEDS ORDERED: RX INFO: IV CONTRAST WAS GIVEN 1 EACH MISC MISCELLANE PRN (10:32)
--- NOTE | 2024-05-14 10:39 | ECHOT ---
TRANSESOPHAGEAL ECHOCARDIOGRAM INDICATION: Aortic stenosis. This is a 79-year-old gentleman with history of severe aortic stenosis, who is to undergo evaluation for aortic valve replacement. The patient needs right knee arthroplasty. I do not think we can let him go through knee replacement with critical aortic stenosis that he has. PROCEDURE NOTE: After obtaining informed consent, transesophageal echocardiogram was performed in left lateral position using an Omniplane probe. Local and IV sedation were obtained using Xylocaine spray, Versed, and fentanyl. Total sedation time was 10 minutes. FINDINGS: Aortic valve is heavily calcified, shows severe restriction in leaflet mobility with a valve area less than 0.5 square centimeter. There is mild aortic regurgitation noted. There is mild to moderate central mitral regurgitation noted. There is mild tricuspid regurgitation noted. Aortic root measures normally. Left atrium appears moderate to severely enlarged. Right atrium and right ventricle appear mildly enlarged. Left ventricular systolic function is normal. CONCLUSION: 1. Heavily calcified aortic valve leaflets with severe restriction in leaflet mobility with a valve area that seems less than 0.5 square centimeter. It is difficult to evaluate valve area with a planimetry given the extensive calcification of the aortic valve leaflets. By 2D appearance, the mobility is severely restricted and one suboptimal valve area shows it to be less than 0.5 square centimeter. 2. Left ventricular systolic function is normal. PLAN: The patient will undergo cardiac catheterization and will be referred for TAVR. MMODL / IJN: [id number] /
--- NOTE | 2024-05-14 10:39 | CC ---
CARDIAC CATHETERIZATION REPORT INDICATIONS: Aortic stenosis. PROCEDURE NOTE: After obtaining informed consent, left heart catheterization and coronary angiogram were performed via the right radial artery using standard Cm catheters. The patient tolerated the procedure well without any obvious immediate complications. Right radial artery access was obtained using Seldinger technique. Catheters and wires were floated into the ascending aorta under fluoroscopic guidance. The patient received moderate conscious sedation. Total sedation time was 17 minutes. The patient was given verapamil and heparin per protocol. A TR band will be used for hemostasis. FINDINGS: 1. Central aortic pressure is 130/70 mm. 2. Left ventriculogram: Left ventriculogram is not performed. 3. Angiographic Data: a.Right Coronary Artery: Right coronary artery is a large dominant vessel that shows mild nonobstructive disease. Vessel is heavily calcified. Left main coronary artery appears calcified. Distal left main as it bifurcates into LAD and left main shows a 30% stenosis, LAD shows a 60% stenosis in its midportion. Circumflex coronary artery is a nondominant vessel and is free of significant disease. CONCLUSION: 1. Heavily calcified right coronary artery without significant focal obstructive disease. 2. 30% distal left main stenosis. 3. 60% stenosis involving mid LAD. PLAN: I am going to review angiographic data with Dr. Tubbs, the on-call internal review and audit compliance and see if we need to do percutaneous revascularization of the LAD prior to sending the patient to TAVR. MMKOLEL / ROHITN: [id number] /
[2024-05-14] MEDS ORDERED: SODIUM CHLORIDE 0.9% 1,000 ML IV SCH (10:45)
[2024-05-14 15:22] VITALS: BP 151/88; PULSE 60
== END 2024-05-14 14:23 | disposition home or self-care (01) ==
LOC: CATHCVL 07:27
PROVIDERS: ATTEND Internal Medicine Cardiovascular Disease
DX: I08.3 Combined rheumatic disorders of mitral, aortic and tricuspid valves (principal); I25.10 Atherosclerotic heart disease of native coronary artery without angina pectoris; E78.5 Hyperlipidemia, unspecified; I48.0 Paroxysmal atrial fibrillation; I50.31 Acute diastolic (congestive) heart failure; Z86.73 Personal history of transient ischemic attack (TIA), and cerebral infarction without residual deficits; Z88.5 Allergy status to narcotic agent; Z88.8 Allergy status to other drugs, medicaments and biological substances; Z79.01 Long term (current) use of anticoagulants; Z79.82 Long term (current) use of aspirin; Z79.899 Other long term (current) drug therapy
CPT/HCPCS: 93312; 93320; 93325; 93454; C1769; C1894; J2250; J2001; J3010; J1644; Q9967

== ENCOUNTER 2024-07-02 05:56 | Inpatient (IN) | payer MEDICARE ==
[~2024-07-02 05:56] MED LIST changes: -ALPRAZolam 0.25 MG TAB PO PRN; -ALPRAZolam 0.5 MG TAB PO PRN; -ASPIRIN 325 MG TAB PO STA; -ATORVASTATIN 80 MG TAB PO STA; +CLEVIDIPINE BUTYRATE 25 MG in EMPTY BAG 1 BAG IV PRN; +ELECTROLYTE-A SOLUTION 1,000 ML with POTASSIUM CHLORIDE 100 MEQ, MAGNESIUM SULFATE 16 M... IV PRN; +ELECTROLYTE-A SOLUTION 1,000 ML with POTASSIUM CHLORIDE 40 MEQ, MAGNESIUM SULFATE 16 ME... IV PRN; -HEPARIN SODIUM,PORCINE (1 ML) 2,500 UNIT in SODIUM CHLORIDE 0.9% 250 ML IRRIGATION PRN; -HEPARIN SODIUM,PORCINE 10,000 UNIT in SODIUM CHLORIDE 0.9% 1,000 ML IRRIGATION PRN; +INSULIN REGULAR 100 UNIT in SODIUM CHLORIDE 0.9% 100 ML IV PRN; -NITROGLYCERIN SL TABS 0.4 MG TAB SUBLINGUAL PRN; +NITROGLYCERIN-D5W PMX 25 MG/250 ML BTL IV PRN; +PROTAMINE SULFATE 250 MG in EMPTY BAG 1 BAG IV PRN; -SODIUM CHLORIDE 0.9% 1,000 ML in EMPTY BAG 1 BAG IV SCH; +TRANEXAMIC ACID 2,000 MG in SODIUM CHLORIDE 0.9% 80 ML IV PRN
[2024-07-02 06:47] LABS: Glucose,Whole Blood 187 mg/dL (70-110)
[2024-07-02] MEDS: SODIUM CHLORIDE 0.9% 1,000 ML IV ONE (07:00)
[2024-07-02] MEDS: METOPROLOL TARTRATE 25 MG TAB PO ONE (07:02)
[2024-07-02] MEDS: CLOPIDOGREL 75 MG TAB PO ONE (07:02)
[2024-07-02] MEDS: ASPIRIN 325 MG TAB PO ONE (07:02)
[2024-07-02] MEDS: ATORVASTATIN 10 MG TAB PO ONE (07:07)
[2024-07-02] MEDS ORDERED: SUGAMMADEX SODIUM 200 MG/2 ML SDV IV ONE (07:30)
[2024-07-02] MEDS ORDERED: PROTAMINE SULFATE 10 MG/ML 5 ML VIAL ONE (07:30)
[2024-07-02] MEDS ORDERED: MIDAZOLAM 2 MG/2 ML VIAL ONE (07:30)
[2024-07-02] MEDS ORDERED: fentaNYL (PF) 50 MCG/ML 2 ML AMP ONE (07:30)
[2024-07-02] MEDS ORDERED: HEPARIN SODIUM,PORCINE 5,000 UNIT/ML 1 ML VIAL ONE ×2 (07:30→23:30)
[2024-07-02] MEDS ORDERED: LIDOCAINE 1% INJ 10MG/ML (20 ML MDV) ONE (07:30)
[2024-07-02] MEDS ORDERED: ROCURONIUM 10 MG/ML (5 ML VIAL) IV ONE (07:30)
[2024-07-02] MEDS ORDERED: PROPOFOL 10 MG/ML 20 ML VIAL IV ONE (07:30)
[2024-07-02] MEDS ORDERED: PHENYLEPHRINE 10 MG/ML VIAL ONE (07:30)
[2024-07-02] MEDS ORDERED: SUCCINYLCHOLINE CHLORIDE 200 MG/10 ML VIAL IV ONE (07:30)
[2024-07-02] MEDS: IOPAMIDOL-370 200ML BTL INJ ONE (09:21)
--- NOTE | 2024-07-02 09:44 | P.OP ---
Date of Procedure: 07/02/24 Preoperative Diagnosis: Tricuspid calcific aortic stenosis Postoperative Diagnosis: Same Procedure(s) Performed: Percutaneous transfemoral transcatheter aortic valve replacement with 26 mm Song GRACIELA 3 valve Implants: 26 mm Song GRACIELA 3 valve Anesthesia: GETA Surgeon: Stephan Larson (Cardiovascular surgeon) Manager Gas #1: Lazarus Tubbs (First dynamite shooter) Manager Gas #2: Donald Gandhi (Second dynamite shooter) Estimated Blood Loss (ml): 20 IV fluids (ml): 800 Pathology: none sent Condition: stable Disposition: PACU Indications for Procedure: 79-year-old male with severe aortic stenosis. He is very limited in his activity due to severe orthopedic disease. He needs a knee replacement and aortic valve replacement was indicated prior to major orthopedic surgery due to severe aortic stenosis. He was seen in the high risk valve clinic and felt to be most appropriate for transcatheter aortic valve replacement due to his very limited activity level. Operative Findings: Valve was highly calcified and very difficult to cross. Even after crossing the valve passing catheters was difficult. Janet dilatation with a 20 mm balloon proceeded uneventfully. Following this we were able to successfully deployed transcatheter valve and obtain excellent gradients without any evidence of aortic insufficiency. Groins closed up fine without any evidence of vascular complications. Description of Procedure: Patient was brought to the cardiac Weigher Bulker and placed supine on the table. General anesthesia was induced. He was appropriately repositioned prepped and draped. Bilateral femoral arterial access was obtained under ultrasound guidance and a long 6 Albanian catheter was placed on the left into the descending thoracic aorta. On the right 7 Albanian sheath was placed and then 2 Perclose devices were placed and then an 8 Albanian sheath was placed. Pigtail was placed through the long sheath on the left and positioned in the noncoronary sinus of Valsalva. Left femoral venous puncture was performed and a 23 cm 8 Albanian sheath was placed. Through this transvenous pacer was advanced into the right ventricle and tested. 8 Albanian sheath on the right was exchanged for a 16 Albanian Song sheath over a stiff wire. The patient was systemically heparinized. ACT was over 300. Valve was crossed from the right femoral with a straight wire and a pigtail placed in the apex of the ventricle. We initially tried to use a safari wire but had issues with it and exchanged it for a Digna rquist wire. John wire was appropriately positioned in the apex of the ventricle. Transvalvular gradients have been measured and were very high. A 20 mm true balloon was advanced over the Lunderquist wire and predilatation of the aortic valve was performed under rapid ventricular pacing. This proceeded without event. The was then exchanged for the 26 millimeters sapient valve delivery system which had been loaded on the back table. Was advanced over the wire through the iliofemoral system into the descending thoracic aorta. The balloon was pulled back into the valve and it was curved around the aortic arch and across the aortic valve. Valve was deployed under rapid ventricular pacing with deployment levels of 20 and 80. This proceeded uneventfully. Valve delivery system was pulled back and the valve was evaluated under JYOTI. Excellent position of the valve with no evidence of leak was noted on the JYOTI. Residual gradient was 3. Valve delivery system was removed.= Heparin was reversed with protamine. Sheath was removed and the 2 Perclose devices deployed with excellent femoral closure. Completion angiogram was performed. The left the temporary pacer was removed the left femoral arterial sheath was removed after placing a Perclose device and sealing the left groin with a PERC single Perclose. Femoral venous sheath was removed and controlled with direct press ure. The patient was awakened transferred to recovery area in stable condition.
--- NOTE | 2024-07-02 09:52 | P.ANPRN ---
Procedure Note - Anesthesia - JYOTI Intraop Pre Bypass JYOTI Intraop - Anesthesia Indication: TAVR Date of Procedure: 07/02/24 Pre-operative Diagnosis: aortic stenosis Post-operative Diagnosis: Aortic stenosis s/p TAVR Surgeon: Stephan Larson Left Ventricle: wnl Ejection Fraction: Normal Regional Wall Motion Abnormalities: None Left Ventricle Hypertrophy: Yes (mod) R. Ventricle Function: Normal Aortic Valve: severely calcified. mean gradient 54. Peak 88. Anatomy: Trileaflet Aortic Stenosis: Severe Aortic Regurgitation: None Mitral Stenosis: None Mitral Regurgitation: Mild Tricuspid Stenosis: None Tricuspid Regurgitation: Trace Pulmonic Stenosis: None Pulmonic Regurgitation: None R. Atrial Dilation: No R. Atrial PFO: No L. Atrial Dilation: No Aortic Dissection: No Aortic Calcification: None Plural Effusion: None
--- NOTE | 2024-07-02 09:53 | P.ANPRN ---
Procedure Note - Anesthesia - JYOTI Intraop Post Bypass JYOTI Intraop Post Bypass Procedure Performed: TAVR Left Ventricle: unchanged Ejection Fraction: Normal Regional Wall Motion Abnormalities: None R. Ventricle Function: Normal Aortic Valve: mean residual gradient 3. Prosthetic valve in place without perivalvular leak. No AI Mitral Valve: Unchanged Tricuspid: Unchanged Pulmonic: Unchanged Aortic Dissection: No
[2024-07-02] MEDS: IV FLUID CONTINUATION 400 ML IV ONE (10:08)
[2024-07-02] MEDS ORDERED: Magnesium Replacement Protocol 1 EACH MISC MISCELLANE PRN (10:21)
[2024-07-02] MEDS ORDERED: Potassium Replacement Protocol 1 EACH MISC MISCELLANE PRN (10:21)
[2024-07-02] MEDS ORDERED: IPRATROPIUM-ALBUTEROL 3 ML NEB INHALATION PRN (10:21)
[2024-07-02] MEDS ORDERED: ACETAMINOPHEN TAB 325 MG TAB PO PRN (10:21)
[2024-07-02] MEDS ORDERED: ONDANSETRON 4 MG/2 ML VIAL IVP PRN (10:21)
[2024-07-02] MEDS ORDERED: PANTOPRAZOLE 40 MG TABLET PO PRN (10:21)
[2024-07-02 10:39] LABS: Basophils % (A) 0 %; Eosinophils % (A) 0 %; HCT 34.3 % (39.0-53.0); HGB 11.4 gm/dL (13.0-17.5); Lymphocytes # (A) 0.6 k/uL (1.0-4.8); Lymphocytes % (A) 8 %; MCH 32.7 pg (25.0-35.0); MCHC 33.4 g/dL (31.0-37.0); MCV 97.8 fL (80.0-100.0); Macrocytosis Slight; Mean Platelet Volume 8.4; Monocytes # (A) 0.3 k/uL (0-1.0); Monocytes % (A) 4 %; Neutrophils # (A) 5.9 k/uL (1.3-7.7); Neutrophils % (A) 87 %; Platelet Count 243 k/uL (150-450); RDW 15.4 % (11.5-15.5); WBC 6.8 k/uL (3.8-10.6)
[2024-07-02 10:46] LABS: African American GFR (CKD) 85 (>60 ml/min/1.73 sqM); Anion Gap 5 mmol/L; Blood Urea Nitrogen 17 mg/dL (9-20); Carbon Dioxide 17 mmol/L (22-30); Chloride 104 mmol/L (98-107); Glucose 157 mg/dL (74-99); Non-African American GFR(CKD) 73 (>60 ml/min/1.73 sqM); Potassium 4.3 mmol/L (3.5-5.1); Sodium 126 mmol/L (137-145)
--- NOTE | 2024-07-02 10:53 | XR ---
EXAMINATION TYPE: XR chest 1V portable DATE OF EXAM: 07/02/2024 Comparison: 05/20/2024 Clinical History: 79-year-old male Post Operative Cardiac Surgery Findings: Endovascular aortic valve replacement. Heart mildly enlarged. Larynx and right pleural effusion. Shamika lar small left pleural effusion. Impression: Mild cardiomegaly and layering moderate right pleural effusion with adjacent atelectasis and/or conso lidation. Increased from prior. Similar small left pleural effusion.
--- NOTE | 2024-07-02 12:51 | P.OP ---
Description of Procedure: Transcatheter Aoritc Valve Replacement Operative report PROCEDURE PERFORMED: 1. Percutaneous Aortic Valve Implantation using a 26 mm Jorge S3. 2. Transesophageal echocardiography (performed by anesthesia) 3. Ultrasound guided access and repair of right femoral artery access site by Perclose closure device. 4. Placement of temporary pacemaker wire. 5. Aortic root angiography 6. Pre balloon aortic valvuloplasty with a 20mm True balloon INDICATIONS: 1. 79 year-old with a history of severe symptomatic aortic valve stenosis. PERFORMING PHYSICIANS: 1. Lazarus Tubbs DO Interventional Cardiology 2. Donald Gandhi MD Interventional Cardiology. 3. Stephan Larson MD, Cardiothoracic Surgeon. SEDATION: General anesthesia provided by anesthesia, see separate note APPROACH: Right femoral artery via percutaneous approach PROCEDURE DESCRIPTION: The patient was discussed at valve clinic with multidisciplinary approach with cardiothoracic surgeon as well as ceo and co founder and thought better treated with TAVR. Risks, benefits, and alternatives of the procedure had been explained to the patient who understood the risks and agreed to proceed. After consents were obtained, patient was brought to the transcatheter aortic valve implantation room in the cardiac assistant laboratory director and general anesthesia was provided by the anesthesiologist (see separate report). Once full body sterile prep was performed, left femoral venous access was obtained and a temporary pacemaker was placed in the RV. Pacing threshholds were checked and deemed appropriate. Next the left femoral artery was accessed using a modified Seldinger technique, ultrasound guidance and micropuncture technique. A 6 Luxembourgish Rabi sheath was placed in the left femoral artery. Next, a 6-Luxembourgish pigtail catheter was advanced into the aorta and positioned in the aortic root, aortic root angiography was performed to determine optimal deployment angle. The right femoral artery was accessed using modified Seldinger technique, micropuncture technique and under direct ultrasound guidance. Femoral angiogram was done showing access in the common femoral artery and a 6Fr sheath was placed. Next preclose technique was performed using 2 Perclose. Next a 0.035 Safari wire was placed in the Aorta via a pigtail catheter. Over that the arteriotomy was serially dilated and a 16 Fr Song sheath was placed. Next a 6F- AL1 catheter was advanced over a wire to the aortic root. A straight wire was advanced through the catheter and used to cross the severely stenotic valve. The AL1 was then exchanged for a 6Fr pigtail catheter and pressure measurements were obtained. The 0.035 Safari wire was then positioned in the apex. Given severe gradients, the decision was made to perform pre-balloon aortic valvuloplasty. A 20 mm true balloon was advanced however unable to pass passed a kink in the wire and therefore entire system had to be pulled out. Therefore the valve was recrossed and a 0.035 Lunderquist wire was placed in the LV. Another 20mm True balloon was advanced into the aortic position and balloon aortic valvuloplasty was performed with rapid pacing. Next a 26 mm Jorge S3 was advanced. The valve was then positioned across the aortic valve and confirmed with aortic root angiography. The valve was then deployed in proper position using slow deployment and with rapid pacing in conjuncture with aortic root angiography. The delivery system was withdrawn back into the arch and an aortic root injection in conjunction with JYOTI demonstrated a satisfactory result. There was trace para valvular leak. There was no evidence of any other significant abnormalities. The preclose Perclose was then deployed in the right femoral artery and hemostasis was achieved. The pigtail was then advanced to the level of the iliac bifurcation via the left femoral access. Femoral angiogram was performed that showed no contrast leak. The left femoral angiogram demonstra rio an arteriotomy in the common femoral artery and this was repaired using a 8F angioseal device. There was initially a kink in the sheath and a small left hematoma developed however this was reduced and complete hemostasis was achieved. The temporary venous pacemaker was pulled as well as the venous sheath with hemostasis achieved. The patient was then transported to the post op area in hemodynamically stable condition, requiring no pressor support. COMPLICATIONS: None CONCLUSION: 1. Implantaion of 26 mm Jorge S3 transcatheter aortic valve via right femoral approach under JYOTI and fluoro guidance with trace keli-valvular aortic regurgitation. 2. Placement of temporary pacemaker wire 3. Aortic Root Aortogram. 4. Pre balloon aortic valvuloplasty with a 20mm True balloon RECOMMENDATIONS: The patient will be monitored for hemodynamic and electrical stability.
[2024-07-02] MEDS: SODIUM CHLORIDE 0.9% 1,000 ML IV SCH (12:56)
[2024-07-02] MEDS: AMIODARONE 360 MG in DEXTROSE 5% IN WATER 200 ML IV ONE (13:10)
[2024-07-02] MEDS: SODIUM CHLORIDE 0.9% 500 ML 500 ML INTRAARTER ONE (13:10)
[2024-07-02] MEDS: SODIUM CHLORIDE 0.9% 500 ML 500 ML IV ONE (13:10)
[2024-07-02] MEDS ORDERED: AMIODARONE 450 MG in DEXTROSE 5% IN WATER 250 ML IV SCH (16:00)
[2024-07-02] MEDS: ESCITALOPRAM 20 MG TAB PO SCH (20:37)
[2024-07-02] MEDS: ATORVASTATIN 10 MG TAB PO SCH (20:37)
[2024-07-02] MEDS: SENNOSIDES-DOCUSATE SODIUM 1 EACH TAB PO SCH (20:38)
[2024-07-03] MEDS: HEPARIN SODIUM,PORCINE 5,000 UNIT/ML 1 ML VIAL SQ SCH (04:10)
[2024-07-03 06:15] LABS: Basophils % (A) 0 %; Eosinophils % (A) 0 %; HCT 31.9 % (39.0-53.0); HGB 10.5 gm/dL (13.0-17.5); Hypochromasia Slight; Lymphocytes # (A) 0.7 k/uL (1.0-4.8); Lymphocytes % (A) 8 %; MCH 32.8 pg (25.0-35.0); MCHC 32.9 g/dL (31.0-37.0); MCV 99.6 fL (80.0-100.0); Macrocytosis Slight; Mean Platelet Volume 8.4; Monocytes # (A) 1.1 k/uL (0-1.0); Monocytes % (A) 11 %; Neutrophils # (A) 7.6 k/uL (1.3-7.7); Neutrophils % (A) 79 %; Platelet Count 193 k/uL (150-450); RDW 15.7 % (11.5-15.5); WBC 9.6 k/uL (3.8-10.6)
[2024-07-03 06:52] LABS: Ionized Calcium 4.9 mg/dL (4.5-5.3)
--- NOTE | 2024-07-03 07:42 | P.PN ---
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 Previous medical history of hypertension, hyperlipidemia, paroxysmal atrial fibrillation on Eliqu is for anticoagulation, CVA in 2012, TIA in 2022, severe arthritis, colon cancer in 2016 status post bowel resection, GERD, lifelong non-smoker with severe restriction POD #1 percutaneous Aortic Valve Implantation using a 26 mm Jorge S3, transesophageal echocardiography (performed by anesthesia), ultrasound guided access and repair of right femoral artery access site by Perclose closure device, placement of temporary pacemaker wire, aortic root angiography, pre balloon aortic valvuloplasty with a 20mm True balloon The patient was seen and examined this morning laying in bed on the cardiac stepdown unit in no acute distress. He denies any pain or shortness of breath. States he has ambulated multiple times to the bathroom without difficulty. He is not eating a lot as he is not very hungry but otherwise has no complaints. No issues with bradycardia since TAVR, hemodynamically stable, neurologically intact. No other new concerns. Objective - Vital Signs Vital signs: Vital Signs Temp 98 F 07/02/24 20:00 Pulse 98 07/02/24 20:00 Resp 18 07/02/24 20:00 BP 152/89 07/02/24 20:00 Pulse Ox 95 07/02/24 20:00 FiO2 Intake & Output 07/02/24 07/03/24 07/03/24 18:59 06:59 18:59 Intake Total 218 Output Total 400 Balance 218 -400 Intake: IV 100 Oral 118 Output: Urine 400 - Exam CONSTITUTIONAL: Appears comfortable, cooperative, no acute distress RESPIRATORY: Lungs sounds diminished bilaterally. Respirations even, nonlabored. Currently on room air with oxygen saturation 95%. Strong cough. CARDIOVASCULAR: S1, S2 present. Irregular rate and rhythm, atrial fibrillation on telemetry. Palpable peripheral pulses bilaterally. No edema present. SCDs present. GASTROINTESTINAL: Abdomen soft, nontender, nondistended. Active bowel sounds present 4 quadrants. Tolerating minimal diet. Positive flatus GENITOURINARY: Continues to void clear, yellow urine INTEGUMENTARY: Skin is warm and dry with evidence of good perfusion. Bilateral groins soft, nontender, slight bruising of the left groin present NEUROLOGIC: Cranial nerves II through XII intact MUSKULOSKELETAL: Able to move all extremities, strength equal bilaterally, gait normal PSYCHIATRIC: Alert and oriented to person place and time, appropriate affect, intact judgment and insight - Allied health notes Allied health notes reviewed: nursing - Labs CBC & Chem 7: 07/03/24 05:57 07/03/24 05:57 Labs: Abnormal Lab Results - Last 24 Hours (Table) 07/02/24 07/02/24 07/03/24 Range/Units 10:21 10:21 05:57 RBC 3.50 L 3.20 L (4.30-5.90) m/uL Hgb 11.4 L 10.5 L (13.0-17.5) gm/dL Hct 34.3 L 31.9 L (39.0-53.0) % RDW 15.7 H (11.5-15.5) % Lymphocytes # 0.6 L 0.7 L (1.0-4.8) k/uL Monocytes # 1.1 H (0-1.0) k/uL Sodium 126 L (137-145) mmol/L Carbon Dioxide 17 L (22-30) mmol/L Glucose 157 H (74-99) mg/dL - Imaging and Cardiology Chest x-ray: image reviewed Assessment and Plan Assessment: 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, status post TAVR History of hypertension Hyperlipidemia Paroxysmal atrial fibrillation on Eliquis for anticoagulation CVA in 2012 TIA in 2022 Severe arthritis Colon cancer in 2016 status post bowel resection GERD Lifelong non-smoker with severe restriction Plan: Continue present medication therapy, restart Eliquis Increase activity, ambulate as tolerated Transthoracic echocardiogram to be completed today, will review once completed As long as patient remains stable and echocardiogram demonstrates normally functioning TAVR valve we will plan for discharge to home this afternoon Will make follow-up appointment at 1 week for groin checks, 30 days post TAVR and 1 year post TAVR appointments with echocardiograms per Medicare guidelines
--- NOTE | 2024-07-03 07:57 | XR ---
EXAMINATION TYPE: XR chest 1V portable DATE OF EXAM: 07/03/2024 Comparison: 07/02/2024 Clinical History: 79-year-old male Post Operative Cardiac Surgery Findings: Endovascular aortic valve replacement. Heart is mildly enlarged. Moderate right and small left pleura l effusions better delineated on this upright view. Impression: Moderate right and small left pleural effusions with adjacent atelectasis and/or consolidation. Likel y relatively similar, now given upright positioning.
[2024-07-03 07:59] LABS: ALT 10 U/L (4-49); AST 32 U/L (17-59); African American GFR (CKD) 76 (>60 ml/min/1.73 sqM); Albumin 3.5 g/dL (3.5-5.0); Alkaline Phosphatase 110 U/L (38-126); Anion Gap 8 mmol/L; Blood Urea Nitrogen 21 mg/dL (9-20); Calcium 9.3 mg/dL (8.4-10.2); Carbon Dioxide 20 mmol/L (22-30); Chloride 105 mmol/L (98-107); Glucose 114 mg/dL (74-99); Magnesium 1.5 mg/dL (1.6-2.3); Non-African American GFR(CKD) 66 (>60 ml/min/1.73 sqM); Potassium 4.9 mmol/L (3.5-5.1); Sodium 133 mmol/L (137-145); Total Bilirubin 0.8 mg/dL (0.2-1.3); Total Protein 6.4 g/dL (6.3-8.2)
[2024-07-03 08:18] VITALS: TEMP 98.6
[2024-07-03] MEDS ORDERED: bisacodyL 10 MG SUPP RECTAL PRN (09:00)
[2024-07-03] MEDS ORDERED: MAGNESIUM HYDROXIDE 2,400 MG/30 ML CUP PO PRN (09:00)
[2024-07-03] MEDS: MAGNESIUM SULFATE-D5W PMX 1 GM in DEXTROSE/WATER 1 100ML.BAG IVPB SCH (09:02)
[2024-07-03] MEDS: APIXABAN 5 MG TAB PO SCH (09:03)
[2024-07-03] MEDS: MELOXICAM 7.5 MG TAB PO SCH (09:03)
[2024-07-03] MEDS: ASPIRIN 81 MG PO SCH (09:04)
[2024-07-03] MEDS: MULTIVITAMINS, THERA 1 EACH TAB PO SCH (09:06)
[2024-07-03] MEDS: METOPROLOL SUCCINATE (ER) 50 MG TAB.ER.24H PO SCH (09:08)
[2024-07-03 09:33] LABS: Basophils % (A) 0 %; Eosinophils % (A) 0 %; HCT 31.7 % (39.0-53.0); HGB 10.4 gm/dL (13.0-17.5); Hypochromasia Slight; Lymphocytes # (A) 0.7 k/uL (1.0-4.8); Lymphocytes % (A) 8 %; MCH 32.6 pg (25.0-35.0); MCHC 32.8 g/dL (31.0-37.0); MCV 99.3 fL (80.0-100.0); Macrocytosis Slight; Mean Platelet Volume 8.4; Monocytes # (A) 0.9 k/uL (0-1.0); Monocytes % (A) 10 %; Neutrophils # (A) 7.1 k/uL (1.3-7.7); Neutrophils % (A) 81 %; Platelet Count 200 k/uL (150-450); RBC 3.19 m/uL (4.30-5.90); RDW 15.6 % (11.5-15.5); WBC 8.8 k/uL (3.8-10.6)
[2024-07-03 10:49] LABS: African American GFR (CKD) 75 (>60 ml/min/1.73 sqM); Anion Gap 8 mmol/L; Blood Urea Nitrogen 20 mg/dL (9-20); Calcium 9.1 mg/dL (8.4-10.2); Carbon Dioxide 19 mmol/L (22-30); Chloride 104 mmol/L (98-107); Glucose 125 mg/dL (74-99); Magnesium 1.5 mg/dL (1.6-2.3); Non-African American GFR(CKD) 65 (>60 ml/min/1.73 sqM); Potassium 4.5 mmol/L (3.5-5.1); Sodium 131 mmol/L (137-145)
[2024-07-03 12:27] VITALS: BP 129/74; PULSE 71; RESP 16
--- NOTE | 2024-07-03 13:36 | CA ---
Transthoracic Echo Report Name: Juvenal Harmon Age: 79 Gender: M : 1945 Exam Date: 07/03/2024 08:08 Exam Location: [facility] Ht (in): 71 Wt (lb): 182 Ordering Physician: Corrina Rodriguez Attending/Referring Phys: [id number], Michael Finisher Machine Radha Marie RDCS Procedure CPT: Indications: post TAVR Cardiac Hx: Technical Quality: Technically difficult study Contrast 1: Definity Total Dose (mL): 2 Contrast 2: Total Dose (mL): MEASUREMENTS (Male / Female) Normal Values 2D ECHO LV Diastolic Diameter PLAX 4.1 cm 4.2 - 5.9 / 3.9 - 5.3 cm LV Systolic Diameter PLAX 2.7 cm IVS Diastolic Thickness 1.4 cm 0.6 - 1.0 / 0.6 - 0.9 cm LVPW Diastolic Thickness 1.3 cm 0.6 - 1.0 / 0.6 - 0.9 cm LV Relative Wall Thickness 0.6 LVOT Diameter 2.2 cm LV Diastolic Volume MOD BP 92.8 cm??? 67 - 155 / 56 - 104 cm??? LV Systolic Volume MOD BP 35.9 cm??? 22 - 58 / 19 - 49 cm??? LV Ejection Fraction MOD BP 61.3 % >= 55 % LV Cardiac Index MOD BP 2311.7 cm???/min???m??? LV Diastolic Volume MOD 4C 86.6 cm??? LV Systolic Volume MOD 4C 31.4 cm??? LV Ejection Fraction MOD 4C 63.7 % LV Cardiac Index MOD 4C 2241.1 cm???/min???m??? LV Diastolic Length 4C 7.7 cm LV Systolic Length 4C 6.3 cm LV Diastolic Volume MOD 2C 96.4 cm??? LV Systolic Volume MOD 2C 36.9 cm??? LV Ejection Fraction MOD 2C 61.7 % LV Cardiac Index MOD 2C 2417.4 cm???/min???m??? LV Diastolic Length 2C 8.0 cm LV Systolic Length 2C 7.1 cm LA Volume 108.2 cm??? 18 - 58 / 22 - 52 cm??? LA Volume Index 53.0 cm???/m??? 16 - 28 cm???/m??? Ascending Aorta Diameter 3.7 cm DOPPLER MV Peak Velocity 152.7 cm/s MV Peak Gradient 9.3 mmHg MV Mean Velocity 90.1 cm/s MV Mean Gradient 4.2 mmHg MV Velocity Time Integral 22.9 cm TR Peak Velocity 286.4 cm/s TR Peak Gradient 32.8 mmHg Right Atrial Pressure 5.0 mmHg Pulmonary Artery Systolic Pressu 37.8 mmHg Right Ventricular Systolic Press 37.8 mmHg PV Peak Velocity 65.8 cm/s PV Peak Gradient 1.7 mmHg FINDINGS Left Ventricle Left ventricular ejection fraction is estimated at 55-60 %. Mildly increased septal wall thickness. Left ventricular wall thickness normal. No obvious regional wall motion abnormalities. Right Ventricle Right ventricular dilatation. Mild pulmonary hypertension. Right Atrium Right atrial dilatation. Left Atrium Severely increased left atrial volume. Moderately increased left atrial area. Mitral Valve Mitral valve thickened. No evidence for mitral valve prolapse. Pxrl-bd-[id number] mitral stenosis. Mild mitral regurgitation. Aortic Valve Bioprosthetic aortic valve without stenosis with a peak velocity of 1.6 m/s, peak gradient 10 mmHg, mean gradient 4 mmHg, and estimated aortic valve area of 1.5 cm???. No periprosthetic aortic regurgitation. Trace prosthetic regurgitation. Tricuspid Valve Structurally normal tricuspid valve. No tricuspid stenosis. Mild to moderate tricuspid regurgitation. Pulmonic Valve Pulmonic valve not well visualized. No pulmonic stenosis. No pulmonic regurgitation. Pericardium No pericardial effusion. Aorta Normal size aortic root and proximal ascending aorta. CONCLUSIONS Left ventricular ejection fraction 55-60% Mildly increased left ventricular wall thickness Mildly dilated left atrium Mild mitral regurgitation Normally functioning bioprosthetic aortic valve with no para valvular leak, trace aortic regurgitation Mild to moderate tricuspid regurgitation No pericardial effusion Previewed by: Dr. Lazarus Tubbs DO (Electronically Signed) Final Date: 03 July 2024 13:35
[2024-07-03 15:03] VITALS: BMI 25.4
--- NOTE | 2024-07-03 15:22 | P.DS ---
Providers Date of admission: 07/02/24 05:56 Expected date of discharge: 07/03/24 Attending physician: Lazarus Tubbs DO Consults: 07/02/24 09:23 Consult Physician Routine Consulting Provider: Stephan Larson Consult Reason/Comments: post TAVR Do you want consulting provider notified?: Already Contacted Primary care physician: Fernie Currie Hospital Course: MEDICAL HISTORY: Calcified aortic valve with severe symptomatic aortic valve stenosis, NYHA III History of hypertension Hyperlipidemia Paroxysmal atrial fibrillation on Eliquis for anticoagulation CVA in 2012, TIA in 2022 Severe arthritis Colon cancer in 2016 status post bowel resection GERD Lifelong non-smoker with severe restriction PROCEDURE: Percutaneous aortic valve implantation using a 26 mm Jorge S3 under JYOTI and fluoroscopy guidance Transesophageal echocardiography performed by anesthesia Ultrasound-guided access and repair of right femoral artery access site by Perclose closure device Placement of temporary pacemaker wire Aortic root angiography Pre-balloon aortic valvuloplasty with a 20 mm True balloon HISTORY OF PRESENT ILLNESS: This is a 79-year-old gentleman who follows on an outpatient basis with Dr. Currie for primary care and Dr. Guzman for cardiology. He has a known history of severe aortic stenosis and has been relatively asymptomatic but has not been very active as he is in need of knee surgery, with activity he does get shortness of breath. He had been referred to structural heart clinic for evaluation for transcatheter aortic valve replacement after heart catheterization and transesophageal echocardiogram were completed. Echocardiography demonstrated reduced systolic function with EF 30-35% although documentation from JYOTI states normal left ventricular function, aortic valve area 0.5 cm with a peak/mean gradient 71/47 mmHg. Heart catheterization showed mid LAD stenosis 60% felt best treated medically. After workup was completed STS risk score was calculated along with incremental risk and the patient was felt to be moderate to high risk for surgical aortic valve replacement, therefore transcatheter aortic valve replacement was recommended. The usual course of TAVR was discussed in detail the patient, risks and benefits were reviewed, shared decision making between cardiology, surgery, and the patient/family took place including the patient's preferences, and the patient consented to proceed with the procedure. HOSPITAL COURSE: The patient was brought to the hospital on 07/02/24, was taken to the extended stay area, prepared in the usual fashion, and subsequently taken to the cardiac catheterization laboratory where Dr. Tubbs and Dr. Larson completed TAVR procedure under general anesthesia with fluoroscopy and JYOTI. The valve was deployed under rapid ventricular pacing and proceeded without event. At the end of the procedure there was mean gradient 3 mmHg, hemodynamics were felt to be acceptable, and there was no evidence of significant perivalvular leak. Upon completion of the procedure the patient was extubated and was transferred to 3 S. cardiac stepdown unit where he was recovered and monitored hemodynamically. His oxygen was titrated down, he was tolerating oral diet, his pain was controlled, follow-up TTE demonstrated normal left ventricular systolic function with EF 55-60%, normally functioning bioprosthetic aortic valve with no paravalvular leak and trace aortic regurgitation, and he was ready to be discharged to home on postoperative day #1. He received written and verbal instruction regarding his medications, activity restrictions, signs and symptoms requiring physician notification, and follow-up appointments. Patient Condition at Discharge: Stable Plan - Discharge Summary New Discharge Prescriptions: New Aspirin 81 mg PO DAILY tab Sennosides-Docusate Sodium [Senokot-S] 2 each PO HS PRN tab PRN Reason: Constipation Acetaminophen Tab [Tylenol] 650 mg PO Q4HR PRN tab PRN Reason: Fever And/ Or Mild Pain (1-3) Continue Omeprazole [PriLOSEC] 40 mg PO DAILY PRN PRN Reason: Gi Upset Metoprolol Succinate (ER) [Toprol XL] 25 mg PO DAILY Escitalopram [Lexapro] 20 mg PO HS Apixaban [Eliquis] 5 mg PO BID #60 tab Multivitamins, Thera [Multivitamin (formulary)] 1 each PO DAILY tab lisinopriL [Zestril] 2.5 mg PO DAILY #30 tab Rosuvastatin Calcium 5 mg PO HS Meloxicam [Mobic] 15 mg PO DAILY Discontinued Aspirin 325 mg PO ONCE Discharge Medication List Escitalopram [Lexapro] 20 mg PO HS 05/10/23 [History] Metoprolol Succinate (ER) [Toprol XL] 25 mg PO DAILY 05/10/23 [History] Omeprazole [PriLOSEC] 40 mg PO DAILY PRN 05/10/23 [History] Apixaban [Eliquis] 5 mg PO BID #60 tab 05/16/23 [Rx] Multivitamins, Thera [Multivitamin (formulary)] 1 each PO DAILY tab 07/12/23 [Rx] lisinopriL [Zestril] 2.5 mg PO DAILY #30 tab 05/16/23 [Rx] Meloxicam [Mobic] 15 mg PO DAILY 07/02/24 [History] Rosuvastatin Calcium 5 mg PO HS 07/02/24 [History] Acetaminophen Tab [Tylenol] 650 mg PO Q4HR PRN tab 07/03/24 [Rx] Aspirin 81 mg PO DAILY tab 07/03/24 [Rx] Sennosides-Docusate Sodium [Senokot-S] 2 each PO HS PRN tab 07/03/24 [Rx] Follow up Appointment(s)/Referral(s): Fernie Currie MD [Primary Care Provider] - As Needed Clinic,Structural Heart [NON-STAFF] - 09/12/24 2:45 pm (You have a 30-day follow-up with the TAVR clinic on 09/12/24 @ 2:45 pm, and a 1 year follow-up with the TAVR clinic on 06/04/25 @ 12:30 pm) Jerzy Guzman MD [STAFF PHYSICIAN] - 07/17/24 8:15 am (Your appointment on 07/17/24 is for a groin check. You also have a 30-day post TAVR echocardiogram and follow-up with Dr. Guzman on 09/12/24 @ 3:15 pm, and a 1 year post TAVR echocardiogram and follow-up with Dr. Guzman on 06/04/25 @ 1 pm) Ambulatory/Diagnostic Orders: Basic Metabolic Panel [LAB.AMB] Location: None Selected Basic Metabolic Panel [LAB.AMB] Location: None Selected Complete Blood Count w/diff [LAB.AMB] Location: None Selected Complete Blood Count w/diff [LAB.AMB] Location: None Selected Activity/Diet/Wound Care/Special Instructions: DISCHARGE INSTRUCTIONS: 1. No driving for 1 week, or until physician gives their ok. 2. No lifting, pushing, or pulling more than 5-10 pounds for 1 week. 3. Hold both groins when you cough or sneeze for the next 2 weeks. Bruising is common, but report increased swelling, pain or fever >101F 4. Shower daily. No pool, hot tub, or bathtub for 1 week 5. No powders, lotions, ointments on incisions. 6. No straining, including for bowel movements. Use stool softner if necessary 7. Stairs are not an issue. Go slowly, using handrail and take 1 step at a time. Ambulate several times daily 8. Continue pain control per as needed orders. 9. Take only the medications listed on your discharge form 10. Eat low salt (limited to 2 grams or 2000 milligrams) daily, avoid adding salt, avoid canned/processed foods 11. Take your weight daily in the morning and record, bring with you to your follow up appointments 12. Keep all follow up appointments. You will need a valve clinic appointment at 30 days and 1 year post procedure for follow up 13. You have been referred to and are expected to begin Cardiac Rehab in approximately 4 weeks. 14. You will need antibiotics prior to any dental work, including cleanings, and any surgeries to prevent Endocarditis (bacterial infection in your heart) For any questions or concerns please call your valve coordinators: Corrina or Maurice @ Discharge Disposition: HOME SELF-CARE
== END 2024-07-03 16:09 | disposition home or self-care (01) | DRG 267 ==
LOC: 2ORMAIN 05:56 → 3SCARD 12:14
PROVIDERS: ADMIT Internal Medicine; ATTEND Internal Medicine
PROC: B24BZZ4 Ultrasonography of Heart with Aorta, Transesophageal (ICD-10-PCS; 2024-07-02)
PROC: B3101ZZ Fluoroscopy of Thoracic Aorta using Low Osmolar Contrast (ICD-10-PCS; 2024-07-02)
PROC: 02RF38Z Replacement of Aortic Valve with Zooplastic Tissue, Percutaneous Approach (ICD-10-PCS; principal; 2024-07-02 08:00)
PROC: 5A1223Z Performance of Cardiac Pacing, Continuous (ICD-10-PCS; 2024-07-02 08:00)
DX: I35.0 Nonrheumatic aortic (valve) stenosis (principal); Z00.6 Encounter for examination for normal comparison and control in clinical research program; I11.9 Hypertensive heart disease without heart failure; I35.8 Other nonrheumatic aortic valve disorders; I48.0 Paroxysmal atrial fibrillation; E78.5 Hyperlipidemia, unspecified; M19.90 Unspecified osteoarthritis, unspecified site; I25.10 Atherosclerotic heart disease of native coronary artery without angina pectoris; K21.9 Gastro-esophageal reflux disease without esophagitis; Z85.038 Personal history of other malignant neoplasm of large intestine; Z90.49 Acquired absence of other specified parts of digestive tract; Z86.73 Personal history of transient ischemic attack (TIA), and cerebral infarction without residual deficits; Z79.01 Long term (current) use of anticoagulants

== ENCOUNTER → 2024-07-31 | Outpatient (CLI) | payer MEDICARE ==
[2024-07-31 15:42] LABS: INR 1.2 (<1.2); Partial Thromboplastin Time 30.7 sec (22.0-30.0)
[2024-07-31 17:58] LABS: HCT 38.6 % (39.6-50.0); HGB 12.5 g/dL (13.0-17.0); MCH 30.5 pg (27.0-32.0); MCHC 32.4 g/dL (32.0-37.0); MCV 94.1 FL (80.0-97.0); Mean Platelet Volume 9.2 FL (9.5-12.2); NRBC Per 100 WBC 0 X 10*3/uL (0.00-0.01); Platelet Count 257 X 10*3/uL (140-440); RDW 14.3 % (11.5-14.5); WBC 3.82 X 10*3/uL (4.50-10.00)
[2024-07-31 17:59] LABS: Basophils # (A) 0.04 X 10*3/uL (0.00-0.10); Eosinophils # (A) 0.28 X 10*3/uL (0.04-0.35); Eosinophils % (A) 7.3 %; Lymphocytes # (A) 0.95 X 10*3/uL (0.90-5.00); Lymphocytes % (A) 24.9 %; Monocytes # (A) 0.96 X 10*3/uL (0.20-1.00); Monocytes % (A) 25.1 %; Neutrophils # (A) 1.57 X 10*3/uL (1.80-7.70); Neutrophils % (A) 41.2 %
[2024-07-31 21:22] LABS: ALT 11 U/L (10-49); AST 25 U/L (14-35); Albumin/Globulin Ratio 1.48 Ratio (1.60-3.17); Alkaline Phosphatase 128 U/L (41-126); BUN/Creat Ratio 12.23 Ratio (12.00-20.00); Blood Urea Nitrogen 15.9 mg/dL (9.0-27.0); Calcium 9.3 mg/dL (8.7-10.3); Carbon Dioxide 23.6 mmol/L (21.6-31.8); Chloride 96 mmol/L (96-109); Globulin 2.7 g/dL (1.6-3.3); Glucose 95 mg/dL (70-110); Potassium 4.2 mmol/L (3.5-5.5); Sodium 132 mmol/L (135-145); Total Bilirubin 0.6 mg/dL (0.3-1.2); Total Protein 6.7 g/dL (6.2-8.2)
== END | disposition home or self-care (01) ==
LOC: LABPAT 14:09
PROVIDERS: ATTEND Orthopaedic Surgery
DX: Z01.818 Encounter for other preprocedural examination
CPT/HCPCS: 80053; 85025; 85610; 85730; 87070

== ENCOUNTER 2024-08-18 07:15 | Observation (INO) | payer MEDICARE ==
[2024-08-12 10:08] VITALS: BMI 27.1
[~2024-08-18 07:15] MED LIST changes: -CLEVIDIPINE BUTYRATE 25 MG in EMPTY BAG 1 BAG IV PRN; -ELECTROLYTE-A SOLUTION 1,000 ML with POTASSIUM CHLORIDE 100 MEQ, MAGNESIUM SULFATE 16 M... IV PRN; -ELECTROLYTE-A SOLUTION 1,000 ML with POTASSIUM CHLORIDE 40 MEQ, MAGNESIUM SULFATE 16 ME... IV PRN; +HYDROmorphone 0.5 MG/0.5 ML SYRINGE IVP PRN; -INSULIN REGULAR 100 UNIT in SODIUM CHLORIDE 0.9% 100 ML IV PRN; +LIDOCAINE 1% (10MG/ML) FOR IV START INTRADERMA PRN; -NITROGLYCERIN-D5W PMX 25 MG/250 ML BTL IV PRN; -PROTAMINE SULFATE 250 MG in EMPTY BAG 1 BAG IV PRN; +TRANEXAMIC 1,000 MG/100ML-NACL 1,000 MG in SALINE 1 100ML.BAG IVPB PRN; -TRANEXAMIC ACID 2,000 MG in SODIUM CHLORIDE 0.9% 80 ML IV PRN; +fentaNYL (PF) 50 MCG/ML 2 ML AMP IVP PRN
[2024-08-18] MEDS: IV FLUID CONTINUATION 1,000 ML IV ONE (07:58)
[2024-08-18] MEDS: GABAPENTIN 300 MG CAP PO PRN (08:02)
[2024-08-18] MEDS: ACETAMINOPHEN TAB 500 MG TAB PO PRN (08:02)
[2024-08-18] MEDS: DEXAMETHASONE SOD PHOSPHATE 4 MG/ML 1 ML VIAL IV ONE (08:03)
[2024-08-18] MEDS: ONDANSETRON 4 MG/2 ML VIAL IVP ONE (08:03)
[2024-08-18] MEDS: MELOXICAM 7.5 MG TAB PO PRN (08:03)
[2024-08-18] MEDS: LACTATED RINGERS 1,000 ML IV SCH (08:03)
[2024-08-18] MEDS: MIDAZOLAM 2 MG/2 ML VIAL IV PRN (08:12)
[2024-08-18] MEDS ORDERED: ONDANSETRON 4 MG/2 ML VIAL IVP PRN (08:36)
[2024-08-18] MEDS ORDERED: HYDROmorphone 0.5 MG/0.5 ML SYRINGE IVP PRN ×3 (08:36)
[2024-08-18] MEDS ORDERED: MAGNESIUM HYDROXIDE 2,400 MG/30 ML CUP PO PRN (08:36)
[2024-08-18] MEDS ORDERED: bisacodyL 10 MG SUPP RECTAL PRN (08:36)
[2024-08-18] MEDS ORDERED: NA PHOS,M-B/NA PHOS,DI-BA 133 ML ENEMA RECTAL PRN (08:36)
[2024-08-18] MEDS ORDERED: NALOXONE 0.4 MG/ML 1 ML VIAL IV PRN (08:36)
--- NOTE | 2024-08-18 08:40 | P.ANPRN ---
Procedure Note - Anesthesia - Nerve Block Performed Right Antonck Single Time Out Performed: Yes Date of Procedure: 08/18/24 Procedure Start Time: 08:10 Procedure Stop Time: 08:15 Location of Patient: PreOp Indication: Acute Post-Operative Pain, Analgesia, Requested by Surgeon Sedation Type: Sedate with meaningful contact maintained Preparation: Sterile Prep Position: Left Lateral Catheter: None Needle Types: Pajunk Needle Gauge: 21 Ultrasound used to visualize needle placement: Yes Ultrasound used to observe medication spread: Yes Injectate: 0.5% Ropivacaine (see comment for volume) ([id number]+Decadron 4mg) Blood Aspirated: No Pain Paresthesia on Injection Noted: No Resistance on Injection: Normal Image Stored and Saved: Yes Events: Uneventful and Well Tolerated
--- NOTE | 2024-08-18 08:42 | P.ANPRN ---
Procedure Note - Anesthesia - Nerve Block Performed Right Adductor Canal Infusion Time Out Performed: Yes Date of Procedure: 08/18/24 Procedure Start Time: : Procedure Stop Time: : Location of Patient: PreOp Indication: Acute Post-Operative Pain, Analgesia, Requested by Surgeon Sedation Type: Sedate with meaningful contact maintained Preparation: Sterile Prep Position: Supine Needle Types: On-Q Needle Gauge: 21 Ultrasound used to visualize needle placement: Yes Ultrasound used to observe medication spread: Yes Injectate: 0.5% Ropivacaine (see comment for volume) (Ropiv 20ml+decadron 4mg) Blood Aspirated: No Pain Paresthesia on Injection Noted: No Resistance on Injection: Normal Image Stored and Saved: Yes Events: Uneventful and Well Tolerated
[2024-08-18] MEDS ORDERED: TRANEXAMIC 1,000 MG/100ML-NACL PREMIX BAG ONE (08:58)
[2024-08-18] MEDS ORDERED: ROPIVACAINE 5 MG/ML 30 ML VIAL ONE (08:58)
[2024-08-18] MEDS ORDERED: SUCCINYLCHOLINE CHLORIDE 200 MG/10 ML VIAL IV ONE (08:58)
[2024-08-18] MEDS ORDERED: LIDOCAINE 4% LTA KIT (4 ML) TOPICAL ONE (08:58)
[2024-08-18] MEDS ORDERED: PROPOFOL 10 MG/ML 20 ML VIAL IV ONE (08:58)
[2024-08-18] MEDS ORDERED: fentaNYL (PF) 50 MCG/ML 2 ML AMP ONE (08:58)
[2024-08-18] MEDS ORDERED: DEXAMETHASONE SOD PHOSPHATE 4 MG/ML 1 ML VIAL ONE (08:58)
[2024-08-18] MEDS ORDERED: LIDOCAINE 1% INJ 10MG/ML (20 ML MDV) ONE (08:58)
[2024-08-18] MEDS: ceFAZolin 1,000 MG in SODIUM CHLORIDE 0.9% 1,000 ML IRRIGATION ONE (09:02)
[2024-08-18] MEDS: LACTATED RINGERS 1,000 ML IV ONE (10:05)
--- NOTE | 2024-08-18 10:13 | P.OP ---
Date of Procedure: 08/18/24 Preoperative Diagnosis: Severe osteoarthritis right knee Postoperative Diagnosis: Severe osteoarthritis right knee Procedure(s) Performed: Right total knee arthroplasty Implants: [employer] Oxinium Bi-cruciate stabilized femoral component size 6, right [employer] nonporous tibial baseplate size 6, right [employer] II, constrained articular insert, size 9 mm, Size 5-6, right [employer] Kinjal II resurfacing patellar component, oval, 35 mm All components were cemented using Palacos R bone cement The articulation is Oxinium on polyethylene Anesthesia: spinal Surgeon: Alvin Bear Air Bag Curer #1: Carolyn Kellogg Estimated Blood Loss (ml): 50 Pathology: none sent Condition: stable Disposition: PACU Indications for Procedure: The patient's knee is end-stage, and conservative management has failed. The operation of knee replacement has been discussed at length in the office, as well as potential risks and complications. These are inclusive of, but not limited to: Infection, bleeding, scarring, discomfort, stiffness, blood vessel and nerve damage, need for further surgery, failure to relieve symptoms, persistence, recurrence, or worsening of problems, loosening, dislocation, wear, blood clot, pulmonary embolism, , gait dysfunction, stiffness, and other risks as discussed in the office. Patient elects to proceed and the consent form has been signed. Operative Findings: The operative findings are consistent with severe osteoarthritis of the right knee Description of Procedure: The patient was seen in the preoperative area, the consent was reviewed and the operative site was marked with a skin marker. The patient verified the procedure and the operative site. An adductor canal pain catheter and an iPACK block were placed by anesthesia in the preoperative area. The patient was then brought to the operating room and positioned on the operating room table in the supine position. Preoperative antibiotics and a gram of tranexamic acid were given intravenously. A spinal anesthetic was administered by the anesthesia department. Care was taken to make sure that all pressure points were adequately padded. A tourniquet was placed on the upper thigh and the lower extremity was prepped with ChloraPrep and draped in usual sterile fashion. A universal time-out was then performed which confirmed the patient's name, surgical site, ALLERGIES, and consent. The lower extremity was then exsanguinated and tourniquet was inflated to 250 mmHg. A standard anterior midline approach to the knee was performed. The skin and subcutaneous tissue were sharply dissected down to the patellar tendon. A medial parapatellar arthrotomy was then performed. The knee was then extended, the patellar was everted, and the knee was flexed. The infra-patellar fat pad was removed in order to enhance exposure. The anterior horns of both menisci were excised, and a release was performed to the posterior medial aspect of the knee. On gross visual inspection, there was complete loss of articular cartilage in the medial and patellofemoral joint spaces. There was also significant cartilage damage in the lateral compartment. There were multiple periarticular osteophytes globally about the knee which were then removed with a Ronguer. The femoral canal was then opened with the 9.5 mm intramedullary drill. The 8 mm intramedullary morgan was then inserted into the femoral canal with the distal femoral cutting guide set for 5 of valgus. The distal femoral cutting block was then pinned in place. The intramedullary morgan was then removed, and the distal femur was then cut. The cutting block was then removed and the cut was checked for symmetry. The resected bone was then measured to confirm the appropriate distal femoral resection. Next, the sizing guide was then placed and set for 3 external rotation based off of the epicondylar axis and [place]'s line. Pins were then placed and the drill holes, and the femur was sized with the sizing stylus. The pins were then removed, and the sizing guide was then removed. The spikes of the appropriate size femoral block was then placed into the predrilled holes, and malleted into place. Two 45 mm pins were then placed into the fixation holes on the cutting block. An taylor wing was then used to ensure there would be no notching with the anterior cut. The anterior condyles were cut without notching. The anterior chord cut was then performed, followed by the posterior cut, posterior chamfer cut, and the anterior chamfer cut. The collateral ligaments were protected during the entire process. The cutting block was then removed. Any remaining bone and osteophytes were removed from the femur with a Ronguer. Attention was then directed to the tibia. The remaining ACL was removed with a Ronguer, and the tibia was then gently subluxed forward with a large bent knee retractor. Any remaining menisci were excised. The posterior lateral corner was cauterized in order to coagulate the lateral geniculate artery. The extra medullary tibial cutting guide was then placed, set for the appropriate rotation, slope, and depth of resection. The proximal tibia cutting guide was then pinned in place. Proximal tibia was then cut and sized. A curved osteotome was then used to remove any posterior osteophytes from the distal femur. The femoral trial was placed. The box cutting guied was then used to remove the intracondylar femoral bone. The box trial was then placed. The tibial trial was placed with the appropriate-sized insert. The knee was able to fully extend and flex to 130 and was stable throughout all range of motion. The knee was then extended and the patella was everted. Patella was then measured, and then using an osteotomy guide, the patella was cut at the appropriate level. The patellar component was sized. The patellar drill guide was placed and the patella was drilled. The patella trial was then placed. The knee was then taken through range of motion with the patella trial and the patella tracked normally using the no thumbs technique. The patella trial was then removed. The knee was then flexed and lug holes were drilled through the femoral trial and the femoral trial was then removed. The tibial was then re-exposed, and the tibial broach guide was then pinned in place after it was set for the appropriate rotation to allow for the most coverage without overhang. The tibia was then reamed and broached. The femoral canal was plugged with autologous bone. The cut surfaces of bone were then irrigated with pulsatile lavage. The knee was also irrigated with Irrisept solution. The components were then opened, the cement was mixed. Cement was placed on the backside of the femoral, tibial, and patellar components. Cement was then applied to the tibial surface and pressurized into the surface using finger pressurization technique. The tibial component was then applied and excess cement was removed after it was impacted securely noted to be flush with the cut surface. In similar fashion, the cement was applied to the cut femoral surface, pressurized and using finger pressurization the component was impacted in place. Excess cement was removed. The polyethylene spacer was then implanted and locked into position. Patellar component was then applied in a similar technique and the patellar clamp was used to hold patella in place while the cement hardened. The knee was held in full extension while the cement hardened. Once the cement had fully hardened, the knee was reinspected. Any other cement extrusion was removed the final range of motion testing showed range of motion from 0-130 with excellent stability, both medial and laterally and appropriate alignment of the leg. Patella tracked normally. After the cemented hardened, the tourniquet was released and hemostasis was obtained. A second gram of transexamic acid was given intravenously. The knee was again irrigated. The knee was again taken through range of motion and found to be stable throughout all range of motion of 0-130, and the patella tracked normally. The fascia was then closed with 0 Vicryl followed by #2 strata fix suture. The subcutaneous tissue was closed with 3-0 Vicryl and 3-0 strata fix. Exofin glue was used for the skin and placed with the knee in flexion. After the glue had dried, and Optafoam silver impregnated dressing was applied. A lightly compressive dressing was applied using web roll and Ilia wrap. Patient was then transferred to the stretcher and taken to recovery room in stable condition. Sponge and needle counts were correct. The digital marketing assistant REYMUNDO Pocne was required due the complexity surgery and the need for a skilled surgical consultant. She assisted in positioning, draping, retraction, and closure of the wound.
[2024-08-18] MEDS: ROPIVACAINE 1,100 MG, SODIUM CHLORIDE 0.9% 500 ML 330 ML, EMPTY PAIN BALL 1 EACH MISCELLANE PRN (10:56)
--- NOTE | 2024-08-18 11:29 | XR ---
EXAMINATION TYPE: XR knee limited RT DATE OF EXAM: 08/18/2024 11:13 AM CLINICAL INDICATION: Male, 79 years old with history of Evaluation for Postop abnormality and alignme nt; [facility] COMPARISON: None. TECHNIQUE: XR knee limited RT; examined in Frontal, lateral projections. FINDINGS: Status post total knee arthroplasty changes with hardware in appropriate alignment and in tact. No evidence of fracture. Subcutaneous lucencies and lucencies within the joint consistent with surgical changes. There is a moderate to large joint effusion present. IMPRESSION: 1. Status post total knee arthroplasty changes with hardware intact and appropriate alignment. No fr actures identified. 2. Moderate to large joint effusion. [facility], , 08/18/2024 11:27 AM
[2024-08-18] MEDS ORDERED: PANTOPRAZOLE 40 MG TABLET PO PRN (14:13)
--- NOTE | 2024-08-18 14:40 | P.CONS ---
History of Present Illness - Reason for Consult Consult date: 08/18/24 - History of Present Illness Patient is a 79-year-old male with history of hypertension, paroxysmal atrial fibrillation on Eliquis, dyslipidemia, depression, severe aortic valve stenosis status post TAVR, prior CVA, prior colon cancer status post bowel resection presenting for elective right knee arthroplasty. Patient denies any chest pain, shortness of breath, abdominal pain, nausea, vomiting, urinary or bowel complaints. No laboratory data available. Preop labs were reviewed. Currently patient's temperature is 97.2, pulse 93, respiratory rate 16, blood pressure 161/98, saturating 100% on 2 L. Pertinent positives and negatives as discussed in HPI, a complete review of systems was performed and all other systems are negative. Patient seen and examined at bedside. Vital signs reviewed General: nontoxic, no distress, appears at stated age Derm: warm, dry, dressing clean, dry, intact Head: atraumatic, normocephalic, symmetric Eyes: EOMI, no lid lag, anicteric sclera, pupils equal round reactive to light ENT: Nose and ears atraumatic Neck: No thyromegaly, supple Mouth: no lip lesion, mucus membranes moist Cardiovascular: S1S2 reg, no murmur, no edema Lungs: clear to auscultation bilateral, no rhonchi, no rales, no wheeze, no accessory muscle use Abdominal: soft, nontender to palpation, no guarding, no appreciable organomegaly Ext: no gross muscle atrophy, muscle strength muscle strength 5 out of 5 in all 4 extremities, no contractures Neuro: CN II-XII grossly intact Psych: Alert, oriented, appropriate affect Assessment/Plan: Active: Paroxysmal atrial fibrillation -Continue Eliquis 5 mg twice daily, metoprolol 25 daily -Monitor on telemetry Hypertension -Continue lisinopril 2.5 daily Dyslipidemia -Continue rosuvastatin 5 mg nightly Depression -Continue Lexapro 20 nightly GERD -Continue omeprazole 40 daily Status post total right knee arthroplasty -Operative note reviewed -Pain control with oral [place] as needed, IV Dilaudid as needed, monitor for sedation -Bowel regimen per orthopedic surgery -CBC and BMP tomorrow Thank you for allowing us to participate in the care of this pleasant patient. Do not hesitate to contact us with questions. Someone can be reached from the [facility] hospitalist group all hours of the day at [phone] or via [employer]. Past Medical History Past Medical History: Cancer, CVA/TIA, GERD/Reflux, Hyperlipidemia, Hypertension, Osteoarthritis (OA) Additional Past Medical History / Comment(s): 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 shingles. CVA-2012-LT SIDED ARM WEAKNESS. POLYMYALGIA History of Any Multi-Drug Resistant Organisms: None Reported Past Surgical History: Bowel Resection, Heart Catheterization Additional Past Surgical History / Comment(s): 09/01/16 Robotic assisted laparoscopic lower anterior resection, bilateral ureteral stent placement. EGD, COLONOSCOPY, TAVR-07/02/24 Past Anesthesia/Blood Transfusion Reactions: No Reported Reaction Additional Past Anesthesia/Blood Transfusion Reaction / Comm: HAS NEVER HAD GENERAL ANESTHESIA. Smoking Status: Never smoker - Past Family History Father Family Medical History: Cancer Additional Family Medical History / Comment(s): MELANOMA. Father lived to be 92 yrs old. Mother Family Medical History: No Reported History Additional Family Medical History / Comment(s): Mother was healthy and lived to be 92 yrs.old. Medications and Allergies Home Medications Medication Instructions Recorded Confirmed Type Escitalopram [Lexapro] 20 mg PO HS 05/10/23 08/12/24 History Metoprolol Succinate (ER) [Toprol 25 mg PO DAILY 05/10/23 08/12/24 History XL] Omeprazole [PriLOSEC] 40 mg PO DAILY PRN 05/10/23 08/12/24 History Apixaban [Eliquis] 5 mg PO BID #60 tab 05/16/23 08/18/24 Rx Multivitamins, Thera [Multivitamin 1 each PO DAILY tab 05/16/23 08/12/24 Rx (formulary)] lisinopriL [Zestril] 2.5 mg PO DAILY #30 tab 05/16/23 08/18/24 Rx Meloxicam [Mobic] 15 mg PO DAILY 07/02/24 08/12/24 History Rosuvastatin Calcium 5 mg PO HS 07/02/24 08/12/24 History Acetaminophen Tab [Tylenol] 650 mg PO Q4HR PRN tab 07/03/24 08/12/24 Rx Aspirin 81 mg PO DAILY tab 07/03/24 08/12/24 Rx Sennosides-Docusate Sodium 2 each PO HS PRN tab 07/03/24 08/12/24 Rx [Senokot-S] HYDROcodone/APAP 7.5-325MG [[place] 1 - 2 tab PO Q6H PRN #32 tab 08/18/24 Rx 7.5-325] Sennosides [Senokot] 2 tab PO DAILY PRN #60 tablet 08/18/24 Rx Allergies Allergy/AdvReac Type Severity Reaction Status Date / Time Iodinated Contrast Media Allergy KIDNEY Verified 08/18/24 07:59 [Iodinated Contrast Media - FAILURE IV Dye] Physical Exam Vitals: Vital Signs Temp Pulse Resp BP Pulse Ox 08/18/24 12:45 93 16 161/98 100 08/18/24 12:30 83 14 140/82 98 08/18/24 12:15 79 14 137/80 98 08/18/24 12:00 81 16 149/76 98 08/18/24 11:45 70 16 176/79 100 08/18/24 11:29 81 16 142/97 100 08/18/24 11:14 95 16 141/88 100 08/18/24 10:56 77 14 137/87 100 08/18/24 10:41 97.2 F L 85 16 142/74 100 08/18/24 08:37 70 16 135/68 98 08/18/24 08:10 97.4 F L 81 16 145/84 98 Intake and Output 08/17/24 08/18/24 08/18/24 22:59 06:59 14:59 Intake Total 1751 Output Total 50 Balance 1701 Intake: IV 1751 Output: Estimated Blood Loss 50 Other: Weight 86.36 kg
[2024-08-18] MEDS: SODIUM CHLORIDE 0.9% 1,000 ML IV SCH (14:52)
[2024-08-18] MEDS: SENNOSIDES-DOCUSATE SODIUM 1 EACH TAB PO SCH (21:33)
[2024-08-18] MEDS: ESCITALOPRAM 20 MG TAB PO SCH (21:33)
[2024-08-18] MEDS: ATORVASTATIN 10 MG TAB PO SCH (21:33)
--- NOTE | 2024-08-19 08:34 | P.PN ---
Progress Note - Text Adequate analgesia. No complications from anesthesia.
[2024-08-19] MEDS: APIXABAN 5 MG TAB PO SCH (08:45)
[2024-08-19] MEDS: HYDROcodone/APAP 7.5-325MG 1 EACH TAB PO PRN (08:45)
[2024-08-19] MEDS: METOPROLOL SUCCINATE (ER) 25 MG TAB.ER.24H PO SCH (08:47)
[2024-08-19 09:26] LABS: BUN/Creat Ratio 14.75 Ratio (12.00-20.00); Blood Urea Nitrogen 17.7 mg/dL (9.0-27.0); Calcium 8.5 mg/dL (8.7-10.3); Carbon Dioxide 16.6 mmol/L (21.6-31.8); Chloride 98 mmol/L (96-109); Glucose 160 mg/dL (70-110); Potassium 4.9 mmol/L (3.5-5.5); Sodium 127 mmol/L (135-145)
[2024-08-19 09:28] LABS: Basophils # (A) 0.01 X 10*3/uL (0.00-0.10); Basophils % (A) 0.1 %; Eosinophils # (A) 0 X 10*3/uL (0.04-0.35); Eosinophils % (A) 0 %; HCT 29.4 % (39.6-50.0); HGB 9.5 g/dL (13.0-17.0); Lymphocytes # (A) 0.65 X 10*3/uL (0.90-5.00); Lymphocytes % (A) 6.2 %; MCH 29.6 pg (27.0-32.0); MCHC 32.3 g/dL (32.0-37.0); MCV 91.6 FL (80.0-97.0); Mean Platelet Volume 10.8 FL (9.5-12.2); Monocytes # (A) 0.96 X 10*3/uL (0.20-1.00); Monocytes % (A) 9.1 %; NRBC Per 100 WBC 0 X 10*3/uL (0.00-0.01); Neutrophils # (A) 8.84 X 10*3/uL (1.80-7.70); Neutrophils % (A) 83.8 %; Platelet Count 150 X 10*3/uL (140-440); RBC 3.21 X 10*6/uL (4.40-5.60); RDW 13.8 % (11.5-14.5); WBC 10.54 X 10*3/uL (4.50-10.00)
--- NOTE | 2024-08-19 11:36 | P.PN ---
Subjective Progress Note Date: 08/19/24 Subjective: Patient seen and examined at bedside. No acute events overnight. Did have some urinary retention requiring straight cath. Pertinent positives and negatives as discussed above, a complete review of systems was performed and all other systems are negative. Vitals Signs Reviewed. General: [nontoxic], [no distress], [appears at stated age] Derm: [warm], [dry], dressing clean, dry, intact Head: [atraumatic], [normocephalic], [symmetric] Eyes: [EOMI], [no lid lag], [anicteric sclera] Mouth: [no lip lesion], [mucus membranes moist] Cardiovascular: [S1S2 reg], [no murmur] Lungs: [CTA bilateral], [no rhonchi, no rales] , [no accessory muscle use] Abdominal: [soft], [ nontender to palpation], [no guarding], [no appreciable organomegaly] Ext: [no gross muscle atrophy], [no edema], [no contractures] Neuro: [ CN II-XI grossly intact], [no focal neuro deficits] Psych: [Alert], [oriented], [appropriate affect] Data Reviewed Today: Pertinent Labs: WBC 10.54, hemoglobin 9.5, platelet 150, sodium 147, bicarb 16.6, anion gap 12.4, creatinine 1.2 Imaging: No new imaging Assessment and Plan: Hyponatremia, likely euvolemic versus hypervolemic Mild anion gap metabolic acidosis -Patient has been receiving IV fluids as of yesterday, now discontinued -Hold fluids, repeat BMP this afternoon Paroxysmal atrial fibrillation -Continue Eliquis 5 mg twice daily, metoprolol 25 daily -Monitor on telemetry Hypertension -Continue lisinopril 2.5 daily Dyslipidemia -Continue rosuvastatin 5 mg nightly Depression -Continue Lexapro 20 nightly GERD -Continue omeprazole 40 daily Status post total right knee arthroplasty Acute blood loss anemia, anticipated outcome of surgery Leukocytosis, anticipated outcome of surgery -Pain control with oral [place] as needed, IV Dilaudid as needed, monitor for sedation -Bowel regimen per orthopedic surgery -Repeat CBC tomorrow Chronic: History of TAVR Colon cancer status post bowel resection Thank you for allowing us to participate in the care of this pleasant patient. Do not hesitate to contact us with questions. Someone can be reached from the [facility] hospitalist group all hours of the day at [phone] or via [employer]. Objective - Vital Signs Vital signs: Vital Signs Temp 97.9 F 08/19/24 07:35 Pulse 108 H 08/19/24 07:35 Resp 15 08/19/24 07:35 BP 118/70 08/19/24 07:35 Pulse Ox 93 L 08/19/24 08:59 FiO2 Intake & Output 08/18/24 08/19/24 08/19/24 18:59 06:59 18:59 Intake Total 1751 Output Total 990 480 Balance 761 -480 Weight 86.36 kg Intake: IV 1751 Output: Urine 500 480 Straight 500 480 Post Void Residual 440 Estimated Blood Loss 50 - Labs CBC & Chem 7: 08/19/24 02:52 08/19/24 02:52 Labs: Abnormal Lab Results - Last 24 Hours (Table) 08/19/24 08/19/24 Range/Units 02:52 02:52 WBC 10.54 H (4.50-10.00) X 10*3/uL RBC 3.21 L (4.40-5.60) X 10*6/uL Hgb 9.5 L (13.0-17.0) g/dL Hct 29.4 L (39.6-50.0) % Immature Gran # 0.08 H (0.00-0.04) X 10*3/uL Neutrophils # 8.84 H (1.80-7.70) X 10*3/uL Lymphocytes # 0.65 L (0.90-5.00) X 10*3/uL Eosinophils # 0 L (0.04-0.35) X 10*3/uL Sodium 127 L (135-145) mmol/L Carbon Dioxide 16.6 L (21.6-31.8) mmol/L Anion Gap 12.40 H (4.00-12.00) mmol/L Glucose 160 H (70-110) mg/dL Calcium 8.5 L (8.7-10.3) mg/dL
[2024-08-19] MEDS: TAMSULOSIN 0.4 MG CAP.ER.24H PO SCH (11:53)
--- NOTE | 2024-08-19 11:58 | P.PN ---
Subjective Progress Note Date: 08/19/24 This is a 79-year-old male who is status post right total knee arthroplasty. This is postoperative day #1 and patient is seen and evaluated at bedside today. Patient states that his pain is well-controlled and he was able to work with physical therapy today with assistance. Objective - Vital Signs Vital signs: Vital Signs Temp 97.9 F 08/19/24 07:35 Pulse 108 H 08/19/24 07:35 Resp 15 08/19/24 07:35 BP 118/70 08/19/24 07:35 Pulse Ox 93 L 08/19/24 08:59 FiO2 Intake & Output 08/18/24 08/19/24 08/19/24 18:59 06:59 18:59 Intake Total 1751 Output Total 990 480 Balance 761 -480 Weight 86.36 kg Intake: IV 1751 Output: Urine 500 480 Straight 500 480 Post Void Residual 440 Estimated Blood Loss 50 - Exam Vital signs are stable. Patient is in no acute distress and is alert and oriented 3. Calf is soft and nontender to palpation. Dressing is clean, dry, and intact. Patient has full foot and ankle motion without pain or difficulty. Sensation intact. Neurovascular status and circulatory status are intact. - Labs CBC & Chem 7: 08/19/24 02:52 08/19/24 02:52 Labs: Abnormal Lab Results - Last 24 Hours (Table) 08/19/24 08/19/24 Range/Units 02:52 02:52 WBC 10.54 H (4.50-10.00) X 10*3/uL RBC 3.21 L (4.40-5.60) X 10*6/uL Hgb 9.5 L (13.0-17.0) g/dL Hct 29.4 L (39.6-50.0) % Immature Gran # 0.08 H (0.00-0.04) X 10*3/uL Neutrophils # 8.84 H (1.80-7.70) X 10*3/uL Lymphocytes # 0.65 L (0.90-5.00) X 10*3/uL Eosinophils # 0 L (0.04-0.35) X 10*3/uL Sodium 127 L (135-145) mmol/L Carbon Dioxide 16.6 L (21.6-31.8) mmol/L Anion Gap 12.40 H (4.00-12.00) mmol/L Glucose 160 H (70-110) mg/dL Calcium 8.5 L (8.7-10.3) mg/dL Assessment and Plan (1) Osteoarthritis of right knee Current Visit: Yes Status: Acute Code(s): M17.11 - UNILATERAL PRIMARY OSTEOARTHRITIS, RIGHT KNEE SNOMED Code(s): 990191757275374 (2) S/P total knee arthroplasty Current Visit: Yes Status: Acute Code(s): Z96.659 - PRESENCE OF UNSPECIFIED ARTIFICIAL KNEE JOINT SNOMED Code(s): 2426399258833 Plan: #1 Continue with routine postoperative care and pain control, leave dressing in place for 7 days. #2 Anticoagulation with Eliquis. #3 Physical therapy today. #4 Appreciate input from internal medicine. #5 Anticipate discharge home with home care or to ECF in the next 24-48 hours.
[2024-08-19 14:57] LABS: African American GFR (CKD) 65 (>60 ml/min/1.73 sqM); Anion Gap 7 mmol/L; Blood Urea Nitrogen 24 mg/dL (9-20); Calcium 8.7 mg/dL (8.4-10.2); Carbon Dioxide 19 mmol/L (22-30); Chloride 101 mmol/L (98-107); Glucose 151 mg/dL (74-99); Non-African American GFR(CKD) 56 (>60 ml/min/1.73 sqM); Potassium 4.8 mmol/L (3.5-5.1); Sodium 127 mmol/L (137-145)
--- NOTE | 2024-08-20 08:10 | P.GSCN ---
History of Present Illness Consult date: 08/20/24 History of present illness: 79yo male sp right knee arthroplasty He went into urine retention post op. he now has an indwelling catheter. We were asked to see the patient. He was started on tamsulosin yesterday. it is unclear as to whether the patient was on this medication preoperatively. He cannot give me a clear answer. Patient did have some problems urinating prior to surgery including occasional hesitancy and occasional urgency incontinence. The patient's history is somewhat vague. He denies seen a urologist. He cannot remember the name of his primary care doctor. He is uncertain as to whether he is on Flomax preoperatively. He denies hematuria infection. There's been no previous urologic care. He has an indwelling catheter that is clear at this point in time.. Review of Systems All systems: negative - Constitutional Denies fever, Denies weight loss - EENT Eyes: denies blurred vision Ears, nose, mouth and throat: Denies dysphagia - Cardiovascular Denies chest pain, Denies shortness of breath - Respiratory Denies cough, Denies 7 - Gastrointestinal Reports as per HPI - Genitourinary Denies dysuria, Denies hematuria - Integumentary Denies rash, Denies unusual bruising - Neurological Denies headaches, Denies syncope - Hematologic/Lymphatic Denies easy bleeding, Denies easy bruising Past Medical History Past Medical History: Cancer, CVA/TIA, GERD/Reflux, Hyperlipidemia, Hypertension , Osteoarthritis (OA) Additional Past Medical History / Comment(s): 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 shingles. 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 POLYMYALGIA History of Any Multi-Drug Resistant Organisms: None Reported Past Surgical History: Bowel Resection, Heart Catheterization Additional Past Surgical History / Comment(s): 09/01/16 Robotic assisted laparoscopic lower anterior resection, bilateral ureteral stent placement. EGD, COLONOSCOPY, TAVR-07/02/24 Past Anesthesia/Blood Transfusion Reactions: No Reported Reaction Additional Past Anesthesia/Blood Transfusion Reaction / Comm: HAS NEVER HAD GENERAL ANESTHESIA. Smoking Status: Never smoker - Past Family History Father Family Medical History: Cancer Additional Family Medical History / Comment(s): MELANOMA. Father lived to be 92 yrs old. Mother Family Medical History: No Reported History Additional Family Medical History / Comment(s): Mother was healthy and lived to be 92 yrs.old. Medications and Allergies Home Medications Medication Instructions Recorded Confirmed Type Escitalopram [Lexapro] 20 mg PO HS 05/10/23 08/12/24 History Metoprolol Succinate (ER) [Toprol 25 mg PO DAILY 05/10/23 08/12/24 History XL] Omeprazole [PriLOSEC] 40 mg PO DAILY PRN 05/10/23 08/12/24 History Apixaban [Eliquis] 5 mg PO BID #60 tab 05/16/23 08/18/24 Rx Multivitamins, Thera [Multivitamin 1 each PO DAILY tab 05/16/23 08/12/24 Rx (formulary)] lisinopriL [Zestril] 2.5 mg PO DAILY #30 tab 05/16/23 08/18/24 Rx Meloxicam [Mobic] 15 mg PO DAILY 07/02/24 08/12/24 History Rosuvastatin Calcium 5 mg PO HS 07/02/24 08/12/24 History Acetaminophen Tab [Tylenol] 650 mg PO Q4HR PRN tab 07/03/24 08/12/24 Rx Aspirin 81 mg PO DAILY tab 07/03/24 08/12/24 Rx Sennosides-Docusate Sodium 2 each PO HS PRN tab 07/03/24 08/12/24 Rx [Senokot-S] HYDROcodone/APAP 7.5-325MG [[place] 1 - 2 tab PO Q6H PRN #32 tab 08/18/24 Rx 7.5-325] Sennosides [Senokot] 2 tab PO DAILY PRN #60 tablet 08/18/24 Rx Allergies Allergy/AdvReac Type Severity Reaction Status Date / Time Iodinated Contrast Media Allergy KIDNEY Verified 08/18/24 07:59 [Iodinated Contrast Media - FAILURE IV Dye] Surgical - Exam Vital Signs Temp Pulse Resp BP Pulse Ox 97.4 F L 81 16 145/84 98 08/18/24 08:10 08/18/24 08:10 08/18/24 08:10 08/18/24 08:10 08/18/24 08:10 - General well developed, well nourished, no distress - Eyes normal ocular movement, no icteric - ENT no hearing loss, no congestion - Neck no masses, trachea midline - Respiratory normal respiratory effort, clear to auscultation - Abdomen Abdomen: soft, non tender, no guarding, no rigid, no rebound - Genitourinary indwelling catheter with clear urine - Integumentary no rash, no abnormal pigmentation - Neurologic no disoriented, no combative - Psychiatric oriented to time, oriented to person, oriented to place, speech is normal, memory intact Results - Labs 08/19/24 02:52 08/19/24 14:21 Abnormal Lab Results - Last 24 Hours (Table) 08/19/24 08/19/24 08/19/24 Range/Units 02:52 02:52 14:21 WBC 10.54 H (4.50-10.00) X 10*3/uL RBC 3.21 L (4.40-5.60) X 10*6/uL Hgb 9.5 L (13.0-17.0) g/dL Hct 29.4 L (39.6-50.0) % Immature Gran # 0.08 H (0.00-0.04) X 10*3/uL Neutrophils # 8.84 H (1.80-7.70) X 10*3/uL Lymphocytes # 0.65 L (0.90-5.00) X 10*3/uL Eosinophils # 0 L (0.04-0.35) X 10*3/uL Sodium 127 L 127 L (135-145) mmol/L Carbon Dioxide 16.6 L 19 L (21.6-31.8) mmol/L Anion Gap 12.40 H (4.00-12.00) mmol/L BUN 24 H (9-20) mg/dL Glucose 160 H 151 H (70-110) mg/dL Calcium 8.5 L (8.7-10.3) mg/dL Urine Osmolality (400-1100) mOsm/kg Ur Random Sodium (40-220) mmol/L 08/19/24 08/19/24 Range/Units 17:35 17:35 WBC (4.50-10.00) X 10*3/uL RBC (4.40-5.60) X 10*6/uL Hgb (13.0-17.0) g/dL Hct (39.6-50.0) % Immature Gran # (0.00-0.04) X 10*3/uL Neutrophils # (1.80-7.70) X 10*3/uL Lymphocytes # (0.90-5.00) X 10*3/uL Eosinophils # (0.04-0.35) X 10*3/uL Sodium (135-145) mmol/L Carbon Dioxide (21.6-31.8) mmol/L Anion Gap (4.00-12.00) mmol/L BUN (9-20) mg/dL Glucose (70-110) mg/dL Calcium (8.7-10.3) mg/dL Urine Osmolality 371 L (400-1100) mOsm/kg Ur Random Sodium <20 L (40-220) mmol/L Diabetes panel 08/19/24 08/19/24 Range/Units 02:52 14:21 Sodium 127 L 127 L (135-145) mmol/L Potassium 4.9 4.8 (3.5-5.5) mmol/L Chloride 98 101 (96-109) mmol/L Carbon Dioxide 16.6 L 19 L (21.6-31.8) mmol/L BUN 17.7 24 H (9.0-27.0) mg/dL Creatinine 1.2 1.24 (0.6-1.5) mg/dL Glucose 160 H 151 H (70-110) mg/dL Calcium 8.5 L 8.7 (8.7-10.3) mg/dL Calcium panel 08/19/24 08/19/24 Range/Units 02:52 14:21 Calcium 8.5 L 8.7 (8.7-10.3) mg/dL Pituitary panel 08/19/24 08/19/24 Range/Units 02:52 14:21 Sodium 127 L 127 L (135-145) mmol/L Potassium 4.9 4.8 (3.5-5.5) mmol/L Chloride 98 101 (96-109) mmol/L Carbon Dioxide 16.6 L 19 L (21.6-31.8) mmol/L BUN 17.7 24 H (9.0-27.0) mg/dL Creatinine 1.2 1.24 (0.6-1.5) mg/dL Glucose 160 H 151 H (70-110) mg/dL Calcium 8.5 L 8.7 (8.7-10.3) mg/dL Adrenal panel 10/15/24 10/15/24 Range/Units 02:52 14:21 Sodium 127 L 127 L (135-145) mmol/L Potassium 4.9 4.8 (3.5-5.5) mmol/L Chloride 98 101 (96-109) mmol/L Carbon Dioxide 16.6 L 19 L (21.6-31.8) mmol/L BUN 17.7 24 H (9.0-27.0) mg/dL Creatinine 1.2 1.24 (0.6-1.5) mg/dL Glucose 160 H 151 H (70-110) mg/dL Calcium 8.5 L 8.7 (8.7-10.3) mg/dL Assessment and Plan Assessment: Impression: post op right knee arthroplasty urine retention recommendations;the patient has been started on Flomax a. He should stay on this medication. The catheter should remain in place 2-3 days at minimum prior to a voiding trial. The patient is discharged home or to rehab we can see in the office in the near future for voiding trial. If he is still the hospital we can do a voiding trial while he is here. Time with Patient: Greater than 30
[2024-08-20] MEDS: HYDROcodone/APAP 7.5-325MG 1 EACH TAB PO PRN (08:24)
[2024-08-20 09:09] LABS: BUN/Creat Ratio 18.54 Ratio (12.00-20.00); Blood Urea Nitrogen 24.1 mg/dL (9.0-27.0); Calcium 8.4 mg/dL (8.7-10.3); Carbon Dioxide 17.7 mmol/L (21.6-31.8); Chloride 97 mmol/L (96-109); Glucose 119 mg/dL (70-110); Potassium 4.8 mmol/L (3.5-5.5); Sodium 127 mmol/L (135-145)
--- NOTE | 2024-08-20 10:45 | P.PN ---
Subjective Progress Note Date: 08/20/24 This is a 79-year-old male who is status post right total knee arthroplasty. This is postoperative day #2 and patient is seen and evaluated at bedside today. Patient states that his pain is well-controlled and he was able to work with physical therapy today with assistance. Objective - Vital Signs Vital signs: Vital Signs Temp 98.2 F 08/20/24 07:47 Pulse 98 08/20/24 09:07 Resp 18 08/20/24 09:07 BP 106/66 08/20/24 07:47 Pulse Ox 96 08/20/24 07:47 FiO2 Intake & Output 08/19/24 08/20/24 08/20/24 18:59 06:59 18:59 Output Total 1000 300 Balance -1000 -300 Output: Urine 1000 300 Other: Voiding Method Toilet Indwelling Catheter Urinal - Exam Vital signs are stable. Patient is in no acute distress and is alert and oriented 3. Calf is soft and nontender to palpation. Dressing is clean, dry, and intact. Patient has full foot and ankle motion without pain or difficulty. Sensation intact. Neurovascular status and circulatory status are intact. - Labs CBC & Chem 7: 08/19/24 02:52 08/20/24 03:07 Labs: Abnormal Lab Results - Last 24 Hours (Table) 08/19/24 08/19/24 08/19/24 Range/Units 14:21 17:35 17:35 Sodium 127 L (137-145) mmol/L Carbon Dioxide 19 L (22-30) mmol/L Anion Gap (4.00-12.00) mmol/L BUN 24 H (9-20) mg/dL Est GFR (CKD-EPI) (>=60) Glucose 151 H (74-99) mg/dL Calcium (8.7-10.3) mg/dL Urine Osmolality 371 L (400-1100) mOsm/kg Ur Random Sodium <20 L (40-220) mmol/L 08/20/24 Range/Units 03:07 Sodium 127 L (137-145) mmol/L Carbon Dioxide 17.7 L (22-30) mmol/L Anion Gap 12.30 H (4.00-12.00) mmol/L BUN (9-20) mg/dL Est GFR (CKD-EPI) 57 L (>=60) Glucose 119 H (74-99) mg/dL Calcium 8.4 L (8.7-10.3) mg/dL Urine Osmolality (400-1100) mOsm/kg Ur Random Sodium (40-220) mmol/L Assessment and Plan (1) Osteoarthritis of right knee Current Visit: Yes Status: Acute Code(s): M17.11 - UNILATERAL PRIMARY OSTEOARTHRITIS, RIGHT KNEE SNOMED Code(s): 162736303582579 (2) S/P total knee arthroplasty Current Visit: Yes Status: Acute Code(s): Z96.659 - PRESENCE OF UNSPECIFIED ARTIFICIAL KNEE JOINT SNOMED Code(s): 8151482000629 Plan: #1 Continue with routine postoperative care and pain control, leave dressing in place for 7 days. #2 Anticoagulation with Eliquis. #3 Physical therapy today. #4 Appreciate input from internal medicine. #5 Anticipate discharge to ECF once cleared medically.
--- NOTE | 2024-08-20 11:22 | P.PN ---
Subjective Progress Note Date: 08/20/24 Subjective: Patient seen and examined at bedside. No acute events overnight. Tipt[place] catheter in place. Pertinent positives and negatives as discussed above, a complete review of systems was performed and all other systems are negative. Vitals Signs Reviewed. General: Nontoxic, no distress, appears at stated age Derm: Warm, dry, dressing clean, dry, intact Head: Atraumatic, normocephalic, symmetric Eyes: EOMI, no lid lag, anicteric sclera Mouth: No lip lesion, mucus membranes moist Cardiovascular: S1S2 reg, no murmur Lungs: CTA bilateral, no rhonchi, no rales, no accessory muscle use Abdominal: Soft, nontender to palpation, no guarding, no appreciable organomegaly Ext: No gross muscle atrophy, no edema, no contractures Neuro: CN II-XI grossly intact, no focal neuro deficits Psych: Alert, oriented, appropriate affect Data Reviewed Today: Pertinent Labs: Sodium 127, creatinine 1.3, bicarb 18, urine osmolality 371, random sodium urine less than 20 Imaging: No new imaging Assessment and Plan: Hyponatremia, euvolemic, asymptomatic Mild anion gap metabolic acidosis -Continue off of IV fluids -Repeat BMP in 3 days at rehab, if it still low, consider starting salt tabs -Increase protein intake Paroxysmal atrial fibrillation -Continue Eliquis 5 mg twice daily, metoprolol 25 daily -Monitor on telemetry Hypertension -Continue lisinopril 2.5 daily Dyslipidemia -Continue rosuvastatin 5 mg nightly Depression -Continue Lexapro 20 nightly GERD -Continue omeprazole 40 daily Status post total right knee arthroplasty Acute blood loss anemia, anticipated outcome of surgery Leukocytosis, anticipated outcome of surgery -Pain control with oral [place] as needed, IV Dilaudid as needed, monitor for sedation -Bowel regimen per orthopedic surgery Acute urinary retention -Status post [place] catheter -Continue tamsulosin 0.4 daily -Urology note reviewed, outpatient follow-up for voiding trial Chronic: History of TAVR Colon cancer status post bowel resection Patient is medically optimized for discharge. Thank you for allowing us to participate in the care of this pleasant patient. Do not hesitate to contact us with questions. Someone can be reached from the [facility] hospitalist group all hours of the day at [phone] or via perfect serve. Objective - Vital Signs Vital signs: Vital Signs Temp 98.2 F 08/20/24 07:47 Pulse 98 08/20/24 09:07 Resp 18 08/20/24 09:07 BP 106/66 08/20/24 07:47 Pulse Ox 96 08/20/24 07:47 FiO2 Intake & Output 08/19/24 08/20/24 08/20/24 18:59 06:59 18:59 Output Total 1000 300 Balance -1000 -300 Output: Urine 1000 300 Other: Voiding Method Toilet Indwelling Catheter Urinal - Labs CBC & Chem 7: 08/19/24 02:52 08/20/24 03:07 Labs: Abnormal Lab Results - Last 24 Hours (Table) 08/19/24 08/19/24 08/19/24 Range/Units 14:21 17:35 17:35 Sodium 127 L (137-145) mmol/L Carbon Dioxide 19 L (22-30) mmol/L Anion Gap (4.00-12.00) mmol/L BUN 24 H (9-20) mg/dL Est GFR (CKD-EPI) (>=60) Glucose 151 H (74-99) mg/dL Calcium (8.7-10.3) mg/dL Urine Osmolality 371 L (400-1100) mOsm/kg Ur Random Sodium <20 L (40-220) mmol/L 08/20/24 Range/Units 03:07 Sodium 127 L (137-145) mmol/L Carbon Dioxide 17.7 L (22-30) mmol/L Anion Gap 12.30 H (4.00-12.00) mmol/L BUN (9-20) mg/dL Est GFR (CKD-EPI) 57 L (>=60) Glucose 119 H (74-99) mg/dL Calcium 8.4 L (8.7-10.3) mg/dL Urine Osmolality (400-1100) mOsm/kg Ur Random Sodium (40-220) mmol/L
--- NOTE | 2024-08-20 14:13 | P.DS ---
Providers Date of admission: 08/18/24 10:36 Expected date of discharge: 08/20/24 Attending physician: Alvin Bear Consults: 08/18/24 08:36 Consult Physician Routine Consulting Provider: Reno Tena Consult Reason/Comments: medical management Do you want consulting provider notified?: Yes 08/19/24 17:40 Consult Physician Routine Consulting Provider: Epifanio Joiner Consult Reason/Comments: Retention Do you want consulting provider notified?: Yes Primary care physician: Fernie Currie - Discharge Diagnosis(es) (1) Osteoarthritis of right knee Current Visit: Yes Status: Acute (2) S/P total knee arthroplasty Current Visit: Yes Status: Acute Hospital Course: This is a 79-year-old male with known history of degenerative arthritis of the right knee. The patient presents for evaluation. After discussion and consideration patient elects to proceed with total knee arthroplasty. The patient is seen preoperatively by Dr. Bear and cleared for surgery. Patient is admitted to [facility] on 08/18/2024 for total knee arthroplasty. The procedures performed without complication or sequelae. The patient is doing well postoperatively. Labs and vital signs are stable on day of discharge. On day of discharge patient's knee incision is healing well. There is minimal erythema. There is no drainage noted at this time. There is minimal soft tissue swelling to the hip and thigh. Patient has full foot and ankle motion without difficulty or pain. Neurovascular status to the right lower extremity is intact. Patient is discharged to rehab in good condition. Please see med rec for accurate list of home medications. Plan - Discharge Summary Discharge Rx Participant: No New Discharge Prescriptions: New HYDROcodone/APAP 7.5-325MG [[place] 7.5-325] 1 - 2 tab PO Q6H PRN #32 tab PRN Reason: Pain Sennosides [Senokot] 2 tab PO DAILY PRN #60 tablet PRN Reason: Constipation Tamsulosin [Flomax] 0.4 mg PO PC-BRKFST cap Continue Omeprazole [PriLOSEC] 40 mg PO DAILY PRN PRN Reason: Gi Upset Metoprolol Succinate (ER) [Toprol XL] 25 mg PO DAILY Aspirin 81 mg PO DAILY tab Escitalopram [Lexapro] 20 mg PO HS Apixaban [Eliquis] 5 mg PO BID #60 tab Multivitamins, Thera [Multivitamin (formulary)] 1 each PO DAILY tab lisinopriL [Zestril] 2.5 mg PO DAILY #30 tab Rosuvastatin Calcium 5 mg PO HS No Action Meloxicam [Mobic] 15 mg PO DAILY Sennosides-Docusate Sodium [Senokot-S] 2 each PO HS PRN tab PRN Reason: Constipation Acetaminophen Tab [Tylenol] 650 mg PO Q4HR PRN tab PRN Reason: Fever And/ Or Mild Pain (1-3) Discharge Medication List Escitalopram [Lexapro] 20 mg PO HS 05/10/23 [History] Metoprolol Succinate (ER) [Toprol XL] 25 mg PO DAILY 05/10/23 [History] Omeprazole [PriLOSEC] 40 mg PO DAILY PRN 05/10/23 [History] Apixaban [Eliquis] 5 mg PO BID #60 tab 05/16/23 [Rx] Multivitamins, Thera [Multivitamin (formulary)] 1 each PO DAILY tab 05/16/23 [Rx] lisinopriL [Zestril] 2.5 mg PO DAILY #30 tab 05/16/23 [Rx] Meloxicam [Mobic] 15 mg PO DAILY 07/02/24 [History] Rosuvastatin Calcium 5 mg PO HS 07/02/24 [History] Acetaminophen Tab [Tylenol] 650 mg PO Q4HR PRN tab 07/03/24 [Rx] Aspirin 81 mg PO DAILY tab 07/03/24 [Rx] Sennosides-Docusate Sodium [Senokot-S] 2 each PO HS PRN tab 07/03/24 [Rx] HYDROcodone/APAP 7.5-325MG [[facility] 7.5-325] 1 - 2 tab PO Q6H PRN #32 tab 08/18/24 [Rx] Sennosides [Senokot] 2 tab PO DAILY PRN #60 tablet 08/18/24 [Rx] Tamsulosin [Flomax] 0.4 mg PO PC-BRKFST cap 08/20/24 [Rx] Follow up Appointment(s)/Referral(s): Fernie Currie MD [Primary Care Provider] - 1 Week Veronica Grimm, [NON-STAFF] - As Needed Alvin Bear DO [Doctor of Osteopathic Medicine] - 08/28/24 2:00 pm Patient Instructions/Handouts: Hyponatremia (DC) Activity/Diet/Wound Care/Special Instructions: Weightbearing as tolerated with a walker. CPM 5-6h daily as tolerated. Leave dressing intact. Dressing may be removed by home care nurse or by patient in 7 days. Then change dressing twice daily until follow up. May shower with initial dressing intact and after removal. If dressing become saturated, please remove. Recommend use of compression stockings daily until follow up to help prevent swelling and blood clots. May remove at night before sleeping. Please resume Eliquis. Please follow up with [facility] and call with any questions or concerns, . Repeat blood work in 3 days to check sodium levels, currently stable. Discharge Disposition: TRANSFER TO SNF/ECF
[2024-08-20 15:05] VITALS: BP 90/52; PULSE 96; RESP 15; TEMP 97.4
== END 2024-08-20 16:04 ==
LOC: OR 07:15 → 4SSUR 10:36 → INTOOBSV 10:36
PROVIDERS: ADMIT Orthopaedic Surgery; ATTEND Orthopaedic Surgery
DX: M17.11 Unilateral primary osteoarthritis, right knee (principal); G89.18 Other acute postprocedural pain; E87.1 Hypo-osmolality and hyponatremia; E87.29 Other acidosis; D62 Acute posthemorrhagic anemia; R33.8 Other retention of urine; D72.829 Elevated white blood cell count, unspecified; I69.354 Hemiplegia and hemiparesis following cerebral infarction affecting left non-dominant side; I10 Essential (primary) hypertension; E78.5 Hyperlipidemia, unspecified; I48.0 Paroxysmal atrial fibrillation; F32.A Depression, unspecified; K21.9 Gastro-esophageal reflux disease without esophagitis; Z79.01 Long term (current) use of anticoagulants; Z79.1 Long term (current) use of non-steroidal anti-inflammatories (NSAID); Z79.82 Long term (current) use of aspirin; Z79.899 Other long term (current) drug therapy; Z95.2 Presence of prosthetic heart valve
CPT/HCPCS: 27447; 94760; 97116; 97161; 97166; 64999; 64448; 84300; 83930; 80048 ×2; 85025; 83935; 73560; G0378; C1713; C1776; C1751; J2250; J0330; J1100; J0690 ×3; J2405; J2003; J3010; J2795; J2704

== ENCOUNTER 2024-09-04 00:30 | Emergency (ER) | payer MEDICARE ==
[2024-09-04 01:09] LABS: ALT 14 U/L (4-49); AST 27 U/L (17-59); African American GFR (CKD) 67 (>60 ml/min/1.73 sqM); Albumin 2.9 g/dL (3.5-5.0); Alkaline Phosphatase 101 U/L (38-126); Anion Gap 9 mmol/L; Blood Urea Nitrogen 56 mg/dL (9-20); Calcium 8.5 mg/dL (8.4-10.2); Carbon Dioxide 19 mmol/L (22-30); Chloride 105 mmol/L (98-107); Glucose 107 mg/dL (74-99); Non-African American GFR(CKD) 58 (>60 ml/min/1.73 sqM); Potassium 4.7 mmol/L (3.5-5.1); Sodium 133 mmol/L (137-145); Total Bilirubin 1.2 mg/dL (0.2-1.3); Total Protein 5.5 g/dL (6.3-8.2)
[2024-09-04 01:13] LABS: INR 1.6 (<1.2); Prothrombin Time 16.5 sec (10.0-12.5)
[2024-09-04] MEDS: SODIUM CHLORIDE 0.9% 1,000 ML IV STA (01:17)
[2024-09-04 01:18] LABS: Anisocytosis Slight; Basophils % (A) 0 %; Eosinophils # (A) 0.1 k/uL (0-0.7); Eosinophils % (A) 2 %; Hypochromasia Marked; Lymphocytes # (A) 1.3 k/uL (1.0-4.8); Lymphocytes % (A) 17 %; MCH 30.3 pg (25.0-35.0); MCHC 30.4 g/dL (31.0-37.0); MCV 99.7 fL (80.0-100.0); Macrocytosis Moderate; Mean Platelet Volume 8.4; Monocytes # (A) 0.7 k/uL (0-1.0); Monocytes % (A) 9 %; Neutrophils # (A) 5.2 k/uL (1.3-7.7); Neutrophils % (A) 69 %; Platelet Count 253 k/uL (150-450); RBC 1.76 m/uL (4.30-5.90); RDW 19.4 % (11.5-15.5); WBC 7.5 k/uL (3.8-10.6)
[2024-09-04] MEDS: SODIUM CHLORIDE 0.9% 500 ML 500 ML IV STA (01:18)
[2024-09-04 01:23] LABS: HCT 17.5 % (39.0-53.0); HGB 5.3 gm/dL (13.0-17.5)
[2024-09-04 01:28] VITALS: RESP 14
[2024-09-04] MEDS: PANTOPRAZOLE 40 MG/10 ML VIAL IVP ONE (02:01)
--- NOTE | 2024-09-04 02:09 | ED ---
GI Bleed HPI - General Chief complaint: GI Bleed Stated complaint: abd pain Time Seen by Provider: 09/04/24 00:42 Source: EMS Mode of arrival: EMS Limitations: altered mental status - History of Present Illness Initial comments: Is a 79-year-old man transferred from retirement to be evaluated for having dark stools. The patient's is present and does provide history, the patient appears to have underlying dementia versus acute delirium. The patient himself is denying pain in the abdomen. No chest pain or dyspnea. He does complain of right knee pain (patient is approximately 2 weeks post right TKA, Dr. Bear). His states that she had noted dark stools going back 3 days. The patient is at retirement following his surgery, she states that he has been disoriented and this was attributed to the anesthesia. Patient's history is notable for colon cancer with bowel resection in 2015. He does take Eliquis for atrial fibrillation. 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 MD complaint: melena Onset/Timin -: days(s) Severity scale (1-10): 0 Quality: painless Consistency: constant Improves with: none Worsens with: none Context: blood thinners Associated Symptoms: denies other symptoms - Related Data Home Medications Medication Instructions Recorded Confirmed Escitalopram [Lexapro] 20 mg PO HS 05/10/23 08/12/24 Metoprolol Succinate (ER) [Toprol 25 mg PO DAILY 05/10/23 08/12/24 XL] Omeprazole [PriLOSEC] 40 mg PO DAILY PRN 05/10/23 08/12/24 Meloxicam [Mobic] 15 mg PO DAILY 07/02/24 08/12/24 Rosuvastatin Calcium 5 mg PO HS 07/02/24 08/12/24 Previous Rx's Medication Instructions Recorded Apixaban [Eliquis] 5 mg PO BID #60 tab 05/16/23 Multivitamins, Thera [Multivitamin 1 each PO DAILY tab 05/16/23 (formulary)] lisinopriL [Zestril] 2.5 mg PO DAILY #30 tab 05/16/23 Acetaminophen Tab [Tylenol] 650 mg PO Q4HR PRN tab 07/03/24 Aspirin 81 mg PO DAILY tab 07/03/24 Sennosides-Docusate Sodium 2 each PO HS PRN tab 07/03/24 [Senokot-S] HYDROcodone/APAP 7.5-325MG [[place] 1 - 2 tab PO Q6H PRN #32 tab 08/18/24 7.5-325] Sennosides [Senokot] 2 tab PO DAILY PRN #60 tablet 08/18/24 Tamsulosin [Flomax] 0.4 mg PO PC-BRKFST cap 08/20/24 Allergies Allergy/AdvReac Type Severity Reaction Status Date / Time Iodinated Contrast Media Allergy KIDNEY Verified 08/18/24 07:59 [Iodinated Contrast Media - FAILURE IV Dye] Review of Systems ROS Statement: Those systems with pertinent positive or pertinent negative responses have been documented in the HPI. ROS Other: All systems not noted in ROS Statement are negative. Limitations: ROS unobtainable due to patients medical condition Constitutional: Denies: fever Respiratory: Denies: cough, dyspnea Cardiovascular: Denies: chest pain, syncope Gastrointestinal: Reports: melena. Denies: abdominal pain, vomiting, hematemesis Genitourinary: Denies: dysuria, hematuria Musculoskeletal: Reports: as per HPI, arthralgia. Denies: back pain Neurological: Denies: headache Past Medical History Past Medical History: CVA/TIA, GERD/Reflux, Hypertension Additional Past Medical History / Comment(s): 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 shingles. 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 POLYMYALGIA History of Any Multi-Drug Resistant Organisms: None Reported Past Surgical History: Bowel Resection, Heart Catheterization Additional Past Surgical History / Comment(s): 09/01/16 Robotic assisted laparoscopic lower anterior resection, bilateral ureteral stent placement. Other surgical procedures: EGD, COLONOSCOPY Past Anesthesia/Blood Transfusion Reactions: No Reported Reaction Additional Past Anesthesia/Blood Transfusion Reaction / Comment(s): HAS NEVER HAD GENERAL ANESTHESIA. Past Psychological History: No Psychological Hx Reported Smoking Status: Never smoker Past Alcohol Use History: Occasional Past Drug Use History: None Reported - Past Family History Father Family Medical History: Cancer Additional Family Medical History / Comment(s): MELANOMA. Father lived to be 92 yrs old. Mother Family Medical History: No Reported History Additional Family Medical History / Comment(s): Mother was healthy and lived to be 92 yrs.old. General Exam Limitations: no limitations General appearance: alert, in no apparent distress Head exam: Present: atraumatic, normocephalic Eye exam: Present: normal appearance, other (No pallor). Absent: scleral icterus, conjunctival injection ENT exam: Present: mucous membranes dry, other (Physical pallor) Neck exam: Present: normal inspection Respiratory exam: Present: normal lung sounds bilaterally. Absent: respiratory distress, wheezes, rales, rhonchi, stridor, accessory muscle use Cardiovascular Exam: Present: tachycardia, irregular rhythm, normal heart sounds. Absent: systolic murmur, diastolic murmur, rubs, gallop GI/Abdominal exam: Present: soft. Absent: distended, tenderness, guarding, rebound, rigid, mass, pulsatile mass, hernia Rectal exam: Present: normal inspection, normal rectal tone, black stool. Absent: hemorrhoids, tenderness Extremities exam: Present: other (Knee has ecchymosis and swelling anteriorly. No abnormal erythema. Mild generalized warmth. No drainage. Surgical donna are intact) Back exam: Present: normal inspection Neurological exam: Present: alert. Absent: oriented X3, motor sensory deficit Skin exam: Present: warm, dry, intact, pallor. Absent: rash Course Vital Signs 09/04/24 09/04/24 09/04/24 00:33 01:23 01:30 Temperature 97.0 F L Pulse Rate 138 H 120 H 114 H Respiratory 16 14 Rate Blood Pressure 86/72 72/47 84/51 O2 Sat by Pulse 95 100 96 Oximetry 09/04/24 09/04/24 09/04/24 01:45 02:00 02:10 Temperature 97.5 F L 97.5 F L Pulse Rate 110 H 128 H 101 H Respiratory 14 Rate Blood Pressure 77/52 68/44 69/47 O2 Sat by Pulse 89 L 95 98 Oximetry 09/04/24 02:18 Temperature 97.5 F L Pulse Rate 112 H Respiratory 14 Rate Blood Pressure 80/65 O2 Sat by Pulse 97 Oximetry Medical Decision Making - Medical Decision Making Patient is a 79-year-old man here with 3 days of dark stools. On the exam patient noted to be in atrial fibrillation with rapid ventricular rate. There is pallor. There is no abdominal tenderness, guarding or rebound. Rectal exam does reveal melanotic stool. The patient's hemoglobin is low and transfusion is ordered. Discussed case with patient's who understands there is no GI availability here and does request [facility] presented with options. Case discussed with transfer team and patient will be excepted. Was pt. sent in by a medical professional or institution (REYMUNDO Elliott, DENTAL LABORATORY TECHNICIAN, urgent care, hospital, or retirement...) When possible be specific @ -[No] Did you speak to anyone other than the patient for history (EMS, parent, family, police, friend...)? What history was obtained from this source @ -[The patient's did give history Did you review nursing and triage notes (agree or disagree)? Why? @ -[I reviewed and agree with nursing and triage notes] Were old charts reviewed (outside hosp., previous admission, EMS record, old EKG, old radiological studies, urgent care reports/EKG's, retirement records)? Report findings @ -[No old charts were reviewed] Differential Diagnosis (chest pain, altered mental status, abdominal pain women, abdominal pain men, vaginal bleeding, weakness, fever, dyspnea, syncope, headache, dizziness, GI bleed, back pain, seizure, CVA, palpatations, mental health, musculoskeletal)? @ -[Differential GI Bleed: Esophageal varices, aortoenteric fistula, [place], gastritis, peptic ulcer disease, diverticulosis, inflammatory bowel disease, hemorrhoids, fissure, colitis, malignancy, Meckel's diverticulum, this is not meant to be an all- inclusive list. EKG interpreted by me (3pts min.). @ -[As above] X-rays interpreted by me (1pt min.). @ -[None done] CT interpreted by me (1pt min.). @ -[None done] U/S interpreted by me (1pt. min.). @ -[None done] What testing was considered but not performed or refused? (CT, X-rays, U/S, labs )? Why? @ -[None] What meds were considered but not given or refused? Why? @ -[None] Did you discuss the management of the patient with other professionals (professionals i.e. REYMUNDO Elliott, DENTAL LABORATORY TECHNICIAN, lab, RT, psych nurse, social group worker, public health epidemiologist, teacher, airfield engineer officer, pillowcase turner)? Give summary @ -[See above, case discussed with the receiving physician and the transfer team Was smoking cessation discussed for >3mins.? @ -[No] Was critical care preformed (if so, how long)? @ -[Yes, 35 minutes Were there social determinants of health that impacted care today? How? (Homelessness, low income, unemployed, alcoholism, drug addiction, transportation, low edu. Level, literacy, decrease access to med. care, alf, rehab)? @ -[No] Was there de-escalation of care discussed even if they declined (Discuss DNR or withdrawal of care, Hospice)? DNR status @ -[No] What co-morbidities impacted this encounter? (DM, HTN, Smoking, COPD, CAD, Cancer, CVA, ARF, Chemo, Hep., AIDS, mental health diagnosis, sleep apnea, morbid obesity)? @ -[Hypertension. Atrial fibrillation with Eliquis use Was patient admitted / discharged? Hospital course, mention meds given and route, prescriptions, significant lab abnormalities, going to OR and other pertinent info. @ -[See above above Undiagnosed new problem with uncertain prognosis? @ -[No] Drug Therapy requiring intensive monitoring for toxicity (Heparin, Nitro, Insulin, Cardizem)? @ -[Blood transfusion Were any procedures done? @ -[No] Diagnosis/symptom? @ -[Acute GI bleeding Acute anemia Lactic acidosis Atrial fibrillation with rapid ventricular rate Acute, or Chronic, or Acute on Chronic? @ -[Acute Uncomplicated (without systemic symptoms) or Complicated (systemic symptoms)? @ -[Uncomplicated Side effects of treatment? @ -[No] Exacerbation, Progression, or Severe Exacerbation? @ -[No] Poses a threat to life or bodily function? How? (Chest pain, [place], [place], pneumonia, PE, COPD, DKA, ARF, appy, cholecystitis, CVA, Diverticulitis, Homicidal, Megan cidal, threat to staff... and all critical care pts) @ -[Yes there is risk of exsanguination or other organ failure due to hypovolemia - Lab Data Result diagrams: 09/04/24 00:58 09/04/24 00:58 Lab Results 09/04/24 09/04/24 09/04/24 Range/Units 00:58 00:58 00:58 WBC 7.5 (3.8-10.6) k/uL RBC 1.76 L (4.30-5.90) m/uL Hgb 5.3 L* D (13.0-17.5) gm/dL Hct 17.5 L* (39.0-53.0) % MCV 99.7 (80.0-100.0) fL MCH 30.3 (25.0-35.0) pg MCHC 30.4 L (31.0-37.0) g/dL RDW 19.4 H (11.5-15.5) % Plt Count 253 (150-450) k/uL MPV 8.4 Neutrophils % 69 % Lymphocytes % 17 % Monocytes % 9 % Eosinophils % 2 % Basophils % 0 % Neutrophils # 5.2 (1.3-7.7) k/uL Lymphocytes # 1.3 (1.0-4.8) k/uL Monocytes # 0.7 (0-1.0) k/uL Eosinophils # 0.1 (0-0.7) k/uL Basophils # 0.0 (0-0.2) k/uL Hypochromasia Marked Anisocytosis Slight Macrocytosis Moderate PT 16.5 H (10.0-12.5) sec INR 1.6 H (<1.2) APTT 29.0 (22.0-30.0) sec Sodium 133 L (137-145) mmol/L Potassium 4.7 (3.5-5.1) mmol/L Chloride 105 (98-107) mmol/L Carbon Dioxide 19 L (22-30) mmol/L Anion Gap 9 mmol/L BUN 56 H (9-20) mg/dL Creatinine 1.21 (0.66-1.25) mg/dL Est GFR (CKD-EPI)AfAm 67 (>60 ml/min/1.73 sqM) Est GFR (CKD-EPI)NonAf 58 (>60 ml/min/1.73 sqM) Glucose 107 H (74-99) mg/dL Lactic Ac Sepsis Rflx Plasma Lactic Acid Bucky (0.7-2.0) mmol/L Calcium 8.5 (8.4-10.2) mg/dL Total Bilirubin 1.2 (0.2-1.3) mg/dL AST 27 (17-59) U/L ALT 14 (4-49) U/L Alkaline Phosphatase 101 (38-126) U/L Troponin I (0.000-0.034) ng/mL Total Protein 5.5 L (6.3-8.2) g/dL Albumin 2.9 L (3.5-5.0) g/dL Stool Occult Blood (Negative) Blood Type Blood Type Recheck Bld Type Recheck Status Antibody Screen Crossmatch Spec Expiration Date 09/04/24 09/04/24 09/04/24 Range/Units 00:58 00:58 00:58 WBC (3.8-10.6) k/uL RBC (4.30-5.90) m/uL Hgb (13.0-17.5) gm/dL Hct (39.0-53.0) % MCV (80.0-100.0) fL MCH (25.0-35.0) pg MCHC (31.0-37.0) g/dL RDW (11.5-15.5) % Plt Count (150-450) k/uL MPV Neutrophils % % Lymphocytes % % Monocytes % % Eosinophils % % Basophils % % Neutrophils # (1.3-7.7) k/uL Lymphocytes # (1.0-4.8) k/uL Monocytes # (0-1.0) k/uL Eosinophils # (0-0.7) k/uL Basophils # (0-0.2) k/uL Hypochromasia Anisocytosis Macrocytosis PT (10.0-12.5) sec INR (<1.2) APTT (22.0-30.0) sec Sodium (137-145) mmol/L Potassium (3.5-5.1) mmol/L Chloride (98-107) mmol/L Carbon Dioxide (22-30) mmol/L Anion Gap mmol/L BUN (9-20) mg/dL Creatinine (0.66-1.25) mg/dL Est GFR (CKD-EPI)AfAm (>60 ml/min/1.73 sqM) Est GFR (CKD-EPI)NonAf (>60 ml/min/1.73 sqM) Glucose (74-99) mg/dL Lactic Ac Sepsis Rflx Plasma Lactic Acid Bucky 4.8 H* (0.7-2.0) mmol/L Calcium (8.4-10.2) mg/dL Total Bilirubin (0.2-1.3) mg/dL AST (17-59) U/L ALT (4-49) U/L Alkaline Phosphatase (38-126) U/L Troponin I <0.012 (0.000-0.034) ng/mL Total Protein (6.3-8.2) g/dL Albumin (3.5-5.0) g/dL Stool Occult Blood (Negative) Blood Type O Positive Blood Type Recheck O Pos Bld Type Recheck Status No Antibody Screen NEGATIVE Crossmatch See Detail Spec Expiration Date 09/07/2024 - 234109/04/24 09/04/24 Range/Units 01:09 01:38 WBC (3.8-10.6) k/uL RBC (4.30-5.90) m/uL Hgb (13.0-17.5) gm/dL Hct (39.0-53.0) % MCV (80.0-100.0) fL MCH (25.0-35.0) pg MCHC (31.0-37.0) g/dL RDW (11.5-15.5) % Plt Count (150-450) k/uL MPV Neutrophils % % Lymphocytes % % Monocytes % % Eosinophils % % Basophils % % Neutrophils # (1.3-7.7) k/uL Lymphocytes # (1.0-4.8) k/uL Monocytes # (0-1.0) k/uL Eosinophils # (0-0.7) k/uL Basophils # (0-0.2) k/uL Hypochromasia Anisocytosis Macrocytosis PT (10.0-12.5) sec INR (<1.2) APTT (22.0-30.0) sec Sodium (137-145) mmol/L Potassium (3.5-5.1) mmol/L Chloride (98-107) mmol/L Carbon Dioxide (22-30) mmol/L Anion Gap mmol/L BUN (9-20) mg/dL Creatinine (0.66-1.25) mg/dL Est GFR (CKD-EPI)AfAm (>60 ml/min/1.73 sqM) Est GFR (CKD-EPI)NonAf (>60 ml/min/1.73 sqM) Glucose (74-99) mg/dL Lactic Ac Sepsis Rflx Y Plasma Lactic Acid Bucky (0.7-2.0) mmol/L Calcium (8.4-10.2) mg/dL Total Bilirubin (0.2-1.3) mg/dL AST (17-59) U/L ALT (4-49) U/L Alkaline Phosphatase (38-126) U/L Troponin I (0.000-0.034) ng/mL Total Protein (6.3-8.2) g/dL Albumin (3.5-5.0) g/dL Stool Occult Blood Positive (Negative) Blood Type Blood Type Recheck Bld Type Recheck Status Antibody Screen Crossmatch Spec Expiration Date - EKG Data -: EKG Interpreted by [facility] EKG shows normal: axis ([place] deviation), QRS complexes (Left bundle branch block pattern) Rate: tachycardia (22) Interpretation: other (Rhythm is atrial fibrillation with rate 122) Disposition Clinical Impression: Melena, Atrial fibrillation with rapid ventricular response, Lactic acidosis Disposition: OTHER INSTITUTION NOT DEFINED Condition: Serious Instructions (If sedation given, give patient instructions): Gastrointestinal Bleeding (ED) Is patient prescribed a controlled substance at d/c from ED?: No Referrals: Fernie Currie MD [Primary Care Provider] - 1-2 days - Out of Hospital Transfer - Req. Specs Out of Hospital Transfer - Requested Specifics: Other Emergency Center
[2024-09-04 02:11] VITALS: TEMP 97.5
[2024-09-04 02:25] VITALS: BP 80/65; PULSE 112
== END 2024-09-04 02:29 | disposition other institution (70) ==
LOC: EC 00:30
DX: I48.91 Unspecified atrial fibrillation (principal); E87.20 Acidosis, unspecified; K92.1 Melena; I44.7 Left bundle-branch block, unspecified; R00.0 Tachycardia, unspecified; Z86.73 Personal history of transient ischemic attack (TIA), and cerebral infarction without residual deficits; Z91.041 Radiographic dye allergy status
CPT/HCPCS: 36415; 86900; 86901; 80053; 83605; 84484; 85025; 85610; 85730; 86850; 86920; 82272; 99291; 96374; 96361; 36430; P9016; J2470

== ENCOUNTER 2025-04-12 02:44 | Emergency (ER) | payer MEDICARE ==
[2025-04-12 02:49] VITALS: PULSE 98; RESP 18
--- NOTE | 2025-04-12 03:02 | ED ---
General Adult HPI - General Chief complaint: Wound/Laceration Stated complaint: bleeding from head; no fall Time Seen by Provider: 04/12/25 02:46 Source: patient Mode of arrival: EMS - History of Present Illness Initial comments: Dictation was produced using Muse dictation software. please excuse any grammatical, word or spelling errors. Chief Complaint: 80-year-old male with bleeding scalp History of Present Illness: Patient is 72-year-old male presents emergency department with bleeding scalp. Patient allegedly fell the of last month. He had donna placed to repair scalp laceration. He was admitted then after admission was transferred to longterm. Patient had donna removed 6 days ago at the longterm. Patient a scab at that site and began peeling it today when all of a sudden started bleeding. The ROS documented in this emergency department record has been reviewed and confirmed by me. Those systems with pertinent positive or negative responses have been documented in the HPI. All other systems are other negative and/or noncontributory. - Related Data Home Medications Medication Instructions Recorded Confirmed Escitalopram [Lexapro] 20 mg PO DAILY 05/10/23 03/27/25 Omeprazole [PriLOSEC] 40 mg PO DAILY 05/10/23 03/27/25 Potassium Chloride ER [K-Dur 20] 20 meq PO DAILY 03/27/25 03/27/25 Rosuvastatin [Crestor] 20 mg PO DAILY 03/27/25 03/27/25 Previous Rx's Medication Instructions Recorded lisinopriL [Zestril] 2.5 mg PO DAILY #30 tab 05/16/23 Acetaminophen Tab [Tylenol] 650 mg PO Q6HR PRN tab 04/02/25 Apixaban [Eliquis] 2.5 mg PO BID tab 04/02/25 Furosemide [Lasix] 20 mg PO DAILY tab 04/02/25 Metoprolol Succinate (ER) [Toprol 75 mg PO DAILY tab 04/02/25 XL] Allergies Allergy/AdvReac Type Severity Reaction Status Date / Time Iodinated Contrast Media Allergy KIDNEY Verified 04/12/25 02:49 [Iodinated Contrast Media - FAILURE IV Dye] Review of Systems ROS Statement: Those systems with pertinent positive or pertinent negative responses have been documented in the HPI. ROS Other: All systems not noted in ROS Statement are negative. Past Medical History Past Medical History: Atrial Fibrillation, CVA/TIA, GERD/Reflux, Hypertension Additional Past Medical History / Comment(s): 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 shingles. CVA-2012- SIDED ARM WEAKNESS. POLYMYALGIA History of Any Multi-Drug Resistant Organisms: None Reported Past Surgical History: Bowel Resection, Heart Catheterization Additional Past Surgical History / Comment(s): 09/01/16 Robotic assisted laparoscopic lower anterior resection, bilateral ureteral stent placement. Other surgical procedures: EGD, COLONOSCOPY, per pt had heart valve replacement 08/28 Past Anesthesia/Blood Transfusion Reactions: No Reported Reaction Additional Past Anesthesia/Blood Transfusion Reaction / Comment(s): HAS NEVER HAD GENERAL ANESTHESIA. Past Psychological History: No Psychological Hx Reported Smoking Status: Never smoker Past Alcohol Use History: Occasional Past Drug Use History: None Reported - Past Family History Father Family Medical History: Cancer Additional Family Medical History / Comment(s): MELANOMA. Father lived to be 92 yrs old. Mother Family Medical History: No Reported History Additional Family Medical History / Comment(s): Mother was healthy and lived to be 92 yrs.old. General Exam - General Exam Comments Initial Comments: General: Well-appearing, nontoxic, no acute distress. Head: Small site of bleeding measuring approximately 2 mm Eyes: PERRLA, EOMI ENT: Airway patent Chest: Nonlabored breathing Skin: No visual rash, normal skin tone Neuro: Alert and oriented 3 Musculoskeletal: No gross abnormalities Course Vital Signs 04/12/25 02:44 Temperature 98.9 F Pulse Rate 98 Respiratory 18 Rate Blood Pressure 105/78 O2 Sat by Pulse 95 Oximetry - Reevaluation(s) Reevaluation #1: 04/12/25 03:00 2 donna were placed at the posterior occipital scalp where site of bleeding is. Bleeding is controlled Medical Decision Making - Medical Decision Making Was pt. sent in by a medical professional or institution (, PA, PLANT CUSTODIAN, urgent care, hospital, or longterm...) When possible be specific @ -No Did you speak to anyone other than the patient for history (EMS, parent, family, police, friend...)? What history was obtained from this source @ -No Did you review nursing and triage notes (agree or disagree)? Why? @ -I reviewed and agree with nursing and triage notes Were old charts reviewed (outside hosp., previous admission, EMS record, old EKG, old radiological studies, urgent care reports/EKG's, longterm records)? Report findings @ -No old charts were reviewed Differential Diagnosis (chest pain, altered mental status, abdominal pain women, abdominal pain men, vaginal bleeding, musculoskeletal, weakness, fever, dyspnea, syncope, headache, dizziness, GI bleed, back pain, seizure, CVA, palpatations, mental health)? @ -Scalp laceration, bleeding aneurysm, chronic wound EKG interpreted by me (3pts min.). @ -None done X-rays interpreted by me (1pt min.). @ -None done CT interpreted by me (1pt min.). @ -None done U/S interpreted by me (1pt. min.). @ -None done What testing was considered but not performed or refused? (CT, X-rays, U/S, labs)? Why? @ -None What meds were considered but not given or refused? Why? @ -None Was smoking cessation discussed for >3mins.? @ -No Were there social determinants of health that impacted care today? How? (Homelessness, low income, unemployed, alcoholism, drug addiction, transportation, low edu. Level, literacy, decrease access to med. care, assisted, rehab)? @ -No Was there de-escalation of care discussed even if they declined (Discuss DNR or withdrawal of care, Hospice)? DNR status @ -No What co-morbidities impacted this encounter? (DM, HTN, Smoking, COPD, CAD, Cancer, CVA, ARF, Chemo, Hep., AIDS, mental health diagnosis, sleep apnea, morbid obesity)? @ -None Was patient admitted / discharged? Hospital course, mention meds given and route, prescriptions, significant lab abnormalities, going to OR and other pertinent info. @ -72-year-old male with bleeding coming from his scalp after he peeled a scab. Vital signs stable. Bleeding was controlled with 2 donna. Patient will need donna removed in 7 days. Did you discuss the management of the patient with other professionals (professionals i.e. , PA, PLANT CUSTODIAN, lab, RT, psych nurse, social problems specialist, distance education teacher, teacher, ordnance officer, child welfare caseworker)? Give summary @ -No Was critical care preformed (if so, how long)? @ -No Undiagnosed new problem with uncertain prognosis? @ -No Drug Therapy requiring intensive monitoring for toxicity (Heparin, Nitro, Insulin, Cardizem)? @ -No Were any procedures done? @ -2 occipital scalp donna were placed outside of bleeding Diagnosis/symptom? Acute, or Chronic, or Acute on Chronic? Uncomplicated (without systemic symptoms) or Complicated (systemic symptoms)? @ -Bleeding scalp wound Side effects of treatment? @ -No Exacerbation, Progression, or Severe Exacerbation? @ -No Poses a threat to life or bodily function? How? (Chest pain, [place], [place], pneumonia, PE, COPD, DKA, ARF, appy, cholecystitis, CVA, Diverticulitis, Homicidal, Suicidal, threat to staff... and all critical care pts) @ -yes Disposition Clinical Impression: Bleeding from wound Disposition: HOME SELF-CARE Condition: Fair Instructions (If sedation given, give patient instructions): Staple Care (ED) Additional Instructions: 2 donna placed over the posterior scalp that will need to be removed in 7 to 10 days Is patient prescribed a controlled substance at d/c from ED?: No Referrals: Fernie Currie MD [Primary Care Provider] - 1-2 days Time of Disposition: 03:02
[2025-04-12 03:40] VITALS: BP 98/60; TEMP 98.7
== END 2025-04-12 04:09 | disposition home or self-care (01) ==
LOC: EC 02:44
DX: S01.01XA Laceration without foreign body of scalp, initial encounter (principal); Z91.041 Radiographic dye allergy status; Z86.73 Personal history of transient ischemic attack (TIA), and cerebral infarction without residual deficits; W19.XXXA Unspecified fall, initial encounter
CPT/HCPCS: 12001; 99283

== ENCOUNTER 2025-04-15 12:56 | Emergency (ER) | payer MEDICARE ==
[2025-04-15 13:04] VITALS: PULSE 90; RESP 17; TEMP 98
--- NOTE | 2025-04-15 13:54 | ED ---
Wound/Laceration HPI - General Chief Complaint: Wound/Laceration Stated Complaint: head wound Time Seen by Provider: 04/15/25 13:07 Source: patient, family, EMS, RN notes reviewed Mode of arrival: EMS Limitations: no limitations - History of Present Illness Initial Comments: 80-year-old male presents emergency room via EMS from [facility], with at bedside, with concerns of posterior scalp bleeding. This is patient's third visit for similar symptoms. Patient fell few weeks ago where he required donna to his posterior scalp. Patient presented on 04/12/2025 with bleeding from the site. Again, states that patient was at once this afternoon and the posterior scalp started bleeding. Patient denies any acute complaints at this time. Patient is on Eliquis. - Related Data Home Medications Medication Instructions Recorded Confirmed Escitalopram [Lexapro] 20 mg PO DAILY 05/10/23 03/27/25 Omeprazole [PriLOSEC] 40 mg PO DAILY 05/10/23 03/27/25 Potassium Chloride ER [K-Dur 20] 20 meq PO DAILY 03/27/25 03/27/25 Rosuvastatin [Crestor] 20 mg PO DAILY 03/27/25 03/27/25 Previous Rx's Medication Instructions Recorded lisinopriL [Zestril] 2.5 mg PO DAILY #30 tab 05/16/23 Acetaminophen Tab [Tylenol] 650 mg PO Q6HR PRN tab 04/02/25 Apixaban [Eliquis] 2.5 mg PO BID tab 04/02/25 Furosemide [Lasix] 20 mg PO DAILY tab 04/02/25 Metoprolol Succinate (ER) [Toprol 75 mg PO DAILY tab 04/02/25 XL] Allergies Allergy/AdvReac Type Severity Reaction Status Date / Time Iodinated Contrast Media Allergy KIDNEY Verified 04/12/25 02:49 [Iodinated Contrast Media - FAILURE IV Dye] Review of Systems ROS Statement: Those systems with pertinent positive or pertinent negative responses have been documented in the HPI. ROS Other: All systems not noted in ROS Statement are negative. Past Medical History Past Medical History: Atrial Fibrillation, CVA/TIA, GERD/Reflux, Hypertension Additional Past Medical History / Comment(s): 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 shingles. 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 POLYMYALGIA History of Any Multi-Drug Resistant Organisms: None Reported Past Surgical History: Bowel Resection, Heart Catheterization Additional Past Surgical History / Comment(s): 09/01/16 Robotic assisted laparoscopic lower anterior resection, bilateral ureteral stent placement. Other surgical procedures: EGD, COLONOSCOPY, per pt had heart valve r eplacement 08/28 Past Anesthesia/Blood Transfusion Reactions: No Reported Reaction Additional Past Anesthesia/Blood Transfusion Reaction / Comment(s): HAS NEVER HAD GENERAL ANESTHESIA. Past Psychological History: No Psychological Hx Reported Smoking Status: Never smoker Past Alcohol Use History: Occasional Past Drug Use History: None Reported - Past Family History Father Family Medical History: Cancer Additional Family Medical History / Comment(s): MELANOMA. Father lived to be 92 yrs old. Mother Family Medical History: No Reported History Additional Family Medical History / Comment(s): Mother was healthy and lived to be 92 yrs.old. General Exam Limitations: no limitations Head exam: Present: other (posterior scalp active bleeding, [address]) ENT exam: Present: normal exam, mucous membranes moist Neck exam: Present: normal inspection. Absent: tenderness, meningismus, lymphadenopathy Respiratory exam: Present: normal lung sounds bilaterally. Absent: respiratory distress, wheezes, rales, rhonchi, stridor Cardiovascular Exam: Present: regular rate, normal rhythm, normal heart sounds. Absent: systolic murmur, diastolic murmur, rubs, gallop, clicks GI/Abdominal exam: Present: soft, normal bowel sounds. Absent: distended, tenderness, guarding, rebound, rigid Extremities exam: Present: normal inspection, full ROM, normal capillary refill. Absent: tenderness, pedal edema, joint swelling, calf tenderness Back exam: Present: normal inspection Skin exam: Present: warm, dry, intact, normal color. Absent: rash Course Vital Signs 04/15/25 12:59 Temperature 98.0 F Pulse Rate 90 Respiratory 17 Rate Blood Pressure 100/72 O2 Sat by Pulse 99 Oximetry Medical Decision Making - Medical Decision Making Was pt. sent in by a medical professional or institution (, PA, PHLEBOTOMY DIRECTOR, urgent care, hospital, or intermediate...) When possible be specific @ -No Did you speak to anyone other than the patient for history (EMS, parent, family, police, friend...)? What history was obtained from this source @ -No Did you review nursing and triage notes (agree or disagree)? Why? @ -I reviewed and agree with nursing and triage notes Were old charts reviewed (outside hosp., previous admission, EMS record, old EKG, old radiological studies, urgent care reports/EKG's, intermediate records)? Report findings @ -Reviewed ER visit note from 04/12/2025 where he presented with posterior scalp bleeding where 2 simple donna were placed and patient was discharged in stable condition. Differential Diagnosis (chest pain, altered mental status, abdominal pain women, abdominal pain men, vaginal bleeding, weakness, fever, dyspnea, syncope, headache, dizziness, GI bleed, back pain, seizure, CVA, palpatations, mental health, musculoskeletal)? @ -Laceration, skin avulsion, chronic wound, this list not all inclusive EKG interpreted by me (3pts min.). @ -None X-rays interpreted by me (1pt min.). @ -None done CT interpreted by me (1pt min.). @ -None done U/S interpreted by me (1pt. min.). @ -None done What testing was considered but not performed or refused? (CT, X-rays, U/S, labs)? Why? @ -None What meds were considered but not given or refused? Why? @ -None Did you discuss the management of the patient with other professionals (professionals i.e. , PA, PHLEBOTOMY DIRECTOR, lab, RT, psych nurse, social media community manager, toll patrolman, teacher, custody officer, spring encaser)? Give summary @ -No Was smoking cessation discussed for >3mins.? @ -No Was critical care preformed (if so, how long)? @ -No Were there social determinants of health that impacted care today? How? (Homelessness, low income, unemployed, alcoholism, drug addiction, transportation, low edu. Level, literacy, decrease access to med. care, detention, rehab)? @ -No Was there de-escalation of care discussed even if they declined (Discuss DNR or withdrawal of care, Hospice)? DNR status @ -No What co-morbidities impacted this encounter? (DM, HTN, Smoking, COPD, CAD, Cancer, CVA, ARF, Chemo, Hep., AIDS, mental health diagnosis, sleep apnea, morbid obesity)? @ -None Was patient admitted / discharged? Hospital course, mention meds given and route, prescriptions, significant lab abnormalities, going to OR and other pertinent info. @ -Discharge. 80-year-old male presenting via EMS for concern of posterior scalp bleeding. There is no active bleeding in the posterior scalp. Staple is removed and topical lidocaine with epinephrine is applied over the bleeding area. 1 simple staple is placed. Patient has been observed for 45+ minutes after medication and donna are in place with no active bleeding. Return parameters discussed. Patient stable for discharge. Case discussed with Dr. Antunez Undiagnosed new problem with uncertain prognosis? @ -No Drug Therapy requiring intensive monitoring for toxicity (Heparin, Nitro, Insulin, Cardizem)? @ -No Were any procedures done? @ -Stable placement Diagnosis/symptom? @ -Wound/laceration, bleeding from wound Acute, or Chronic, or Acute on Chronic? @ -Acute Uncomplicated (without systemic symptoms) or Complicated (systemic symptoms)? @ -Uncomplicated Side effects of treatment? @ -No Exacerbation, Progression, or Severe Exacerbation? @ -No Poses a threat to life or bodily function? How? (Chest pain, USA, ID, pneumonia, PE, COPD, DKA, ARF, appy, cholecystitis, CVA, Diverticulitis, Homicidal, Suicidal, threat to staff... and all critical care pts) @ -No Disposition Clinical Impression: Laceration Disposition: HOME SELF-CARE Condition: Stable Instructions (If sedation given, give patient instructions): Staple Care (ED) Additional Instructions: Please return to the Emergency Department if symptoms worsen or any other concerns. Is patient prescribed a controlled substance at d/c from ED?: No Referrals: Fernie Currie MD [Primary Care Provider] - 1-2 days Time of Disposition: 14:27
[2025-04-15] MEDS: LIDOCAINE/EPINEPHR/TETRACAINE 5 ML BOTTLE TOPICAL ONE (14:01)
[2025-04-15] MEDS: MORPHINE SULFATE 4 MG/ML SYRINGE IM STA (15:24)
[2025-04-15] MEDS: ACETAMINOPHEN TAB 500 MG TAB PO STA (15:27)
[2025-04-15 15:30] VITALS: BP 97/60
== END 2025-04-15 15:38 | disposition home or self-care (01) ==
LOC: EC 12:56
DX: S01.01XA Laceration without foreign body of scalp, initial encounter (principal); Z79.01 Long term (current) use of anticoagulants; Z91.041 Radiographic dye allergy status; W19.XXXA Unspecified fall, initial encounter
CPT/HCPCS: 12001; 99283